=== PATIENT | female | born 1965 ===

== ENCOUNTER 2024-10-27 20:52 | Inpatient (IN) | payer OTHER, SELFPAY ==
[2024-10-27 20:00] VITALS: BP 137/70; PULSE 89; RESP 15; TEMP 36.3; O2SAT 92
[2024-10-27 23:54] VITALS: BMI 43.3
--- NOTE | 2024-10-28 01:02 | PC.ADMIT ---
Admitted these 59 yrs. old female patient per stretcher accompanied by ambulance staff and security strategist w/ signed Sec. 12-B from our ED. According to report pt was found naked by and was not answering questions but is following commands. stated pt's mental status began to decline about three weeks ago when she was diagnosed with a UTI. However, that infection has since cleared and her mentation has still not improved. Patient arrived in the unit at 21:10h Pt put to bed comfortably. Pt is alert and oriented to person, place and time but forgets the date. Pt is pleasant, calm and cooperative with the admission process. Pt signed the release of information. Pt has medical hx of asthma, CHF,diabetes, dementia,hypothyroidism, Anemia and hyperlipidemia. Pt. denies anxiety/depression/SI/HI/pain and feels safe in the unit. Skin assessment done w/ coccyx noted to be pink, no open areas, no edema noted. Pt has a small skin tag in the upper inner thigh.Pt. noted to be repititive and perseverative at times. Pt put on 5 mins. checks for safety. We'll continue to monitor patient. Dr. Sánchez notified of the admission w/ new orders made.
[2024-10-28] MEDS: traZODone HCL 50 MG TABLET PO ×2 (02:16→20:09)
[2024-10-28 08:00] VITALS: BP 147/74; PULSE 100; RESP 18; TEMP 36; O2SAT 96
--- NOTE | 2024-10-28 09:06 | P.HPPS_ITS ---
[facility] Date of Service: 10/28/24 Chief Complaint: Dementia W/Behavioral Disturbances Sources of Information: patient interviewed, chart reviewed and crisis/core team assessment reviewed Additional Sources of Information: Eliud () [phone] [facility] Subjective Notes: Colon Warning and Section 12B Narrative: Mrs. Duarte is a 59 year-old woman with hx of Bipolar Disorder, fronto- temporal dementia which was diagnosed back in 12/2023 at [facility] who was brought to [facility] ED as described pt sitting in chair, not talking, repeating words, purposeless behaviors such as walking to room staring and back and when asked about what she was doing would not respond. Pertinent labs completed in ED on 10/26/2024 include cmp without electrolyte abnormality, BUN 21, Cr 0.76, AST 16, ALT 31. UA on 10/26/2024 not suggestive of UTI, negative leukocyte, negative for nitrites. CBC without leukocytosis/leukopenia, no anemia. On the unit, pt presents with verbigeration, repeating last word of sentence she says several times. Her responses to simple questions questions are seemingly appropriate on surface in the sense that when you ask her if she is having pain she may say yes, yes, yes yes yes but when asked to elaborate then says no no no no no. She is able to tell that she is in the hospital. She reports she is not sure why she is here. She denies having a psychiatric providers, but Eliud reports she sees a psychiatrist. She also is not able to tell if she sees a neurologist or not. She denies suicidal or homicidal ideation. When asked about repetition of words, she does state that this started 3 weeks ago (which is consistent with what Eliud reports), when asked if it bothers her she says yes, yes, yes, yes, no, no, no, no. when asked if she has noticed other changes for the past 3 weeks she denies and reports she is okay. When asked if she is able to suppress repeating words several times, she says yes, yes, yes, yes, yes. Then this policy writer asked her to repeat a sentence without repeating any words several times. Sentence was I have a dog, pt kept repeating dog, dog, dog, dog. On exam, no waxy flexibility noted on exam. Per , Eliud- he reports they have been together only for 3 years. He reports that he suspected something was not right with her about one year ago or so. He reports he noticed behavioral changes in that patient began to present as more withdrawn, not talking as much, not talking, responses to questions related to what was going on had no much logic. He reports she initially was mistaken as depressed but finally when she was admitted to [facility] she was given dx of frontotemporal dx last year. He reports she was doing very well, able to cook at home, complete some chores, go out with him, but in the past 3 weeks, she started to again stare at the wall, purposeless behaviors of going to a room, coming back out, not taking care of hygiene but not expressing depressed mood or sadness. He stated she also started to refuse her medications, which he reports she is very consistent with them. He denies hx of violence or self harm behaviors as he is aware. His understanding is that this presentation it is not the common presentation she had earlier in her life due to Bipolar Disorder. Past Psychiatric History: Inpt: [facility] 12/2023 apparently presented as catatonic and dx with frontotemporal Dementia. OP: Karlene Demarco [phone] (psychiatric provider) Neurologist: Dr. Humberto Escamilla Past med trials: trileptal, seroquel, Medical Evaluation Reviewed: Yes TSH-2.32 [facility] Medical History (Updated 10/29/24 @ 09:40 by Nicole Salinas NP) Catatonia Bipolar disorder Mild intermittent asthma HLD (hyperlipidemia) Pulmonary embolism Acute CHF Frontotemporal dementia Family History: unknown Social History: with Eliud for the past 3 years. She has two adult children in their 30's. She worked as an [employer] but has been on disability for 10 years. Substance History: none Trauma History: none reported Diagnostics Vital Signs (24Hr): Vital Signs - 24 hr 10/27/24 20:00 Temperature 97.3 F Pulse Rate 89 Respiratory Rate 15 Blood Pressure 137/70 Pulse Oximetry 92 Oxygen Delivery Method Room Air BMI result Body Mass Index 43.3 Labs 10/28/24 08:44 Meds/Allergies Meds Home Medications ?Medication ?Instructions ?Recorded ?Confirmed ?Type apixaban 5 mg tablet (Eliquis) 5 mg PO BID 10/28/24 10/28/24 History atorvastatin 20 mg tablet 20 mg PO BEDTIME 10/28/24 10/28/24 History ergocalciferol (vitamin D2) 1,250 1,250 mcg PO QWEEK 10/28/24 10/28/24 History mcg (50,000 unit) capsule folic acid 1 mg tablet 5 mg PO DAILY 10/28/24 10/28/24 History lorazepam 0.5 mg tablet 0.5 mg PO BID 10/28/24 10/28/24 History memantine 5 mg tablet 5 mg PO BID 10/28/24 10/28/24 History methimazole 5 mg tablet 5 mg PO DAILY 10/28/24 10/28/24 History oxcarbazepine 600 mg tablet 600 mg PO BID 10/28/24 10/28/24 History pyridoxine (vitamin B6) 50 mg 50 mg PO DAILY 10/28/24 10/28/24 History tablet quetiapine 25 mg tablet 25 mg PO BID 10/28/24 10/28/24 History quetiapine 25 mg tablet 75 mg PO BEDTIME 10/28/24 10/28/24 History sennosides 8.6 mg tablet (senna) 17.2 mg PO BEDTIME PRN Constipation 10/28/24 10/28/24 History Allergies Allergies Allergy/AdvReac Type Severity Reaction Status Date / Time artichoke Allergy Swelling Verified 10/27/24 23:58 perphenazine [From Trilafon] Allergy Anaphylaxis Verified 10/27/24 23:55 tree nut Allergy Unknown Verified 10/27/24 23:58 walnut Allergy Unknown Verified 10/27/24 23:58 Mental Status Exam Mental Status Exam Narrative: Appearance: wearing casual clothing, appears stated age, in NAD Behavior:seemingly cooperative Psychomotor: no agitation or retardation noted Speech: verbigeration, clear, monotone, spontaneous TP: some derailment at times TC: Mood: good Affect: constricted affect, but congruent SI: denies HI: denies VH/AH: no overt signs Delusions: no overt delusional content Insight/judgment: impaired x 2. Memory/cog: alert, oriented to fact that she is in the hospital and month, not to situation. Assessment & Plan Assessment & Plan (1) Frontotemporal dementia with behavioral disturbance: Status: Acute Code(s): G31.09 - Other frontotemporal neurocognitive disorder; F02.818 - Dementia in other diseases classified elsewhere, unspecified severity, with other behavioral disturbance Assessment and Plan: with s/s of catatonia including verbigeration, negativism, staring, purposeless behaviors- did respond to trial of ativan, in particular the verbigeration and negativism (2) Bipolar disorder: Status: Acute Code(s): F31.9 - Bipolar disorder, unspecified Assessment and Plan: apparently without psychosis in the past. (3) Goiter with hyperthyroidism: Status: Acute Code(s): E05.00 - Thyrotoxicosis with diffuse goiter without thyrotoxic crisis or storm Assessment and Plan: TSH-2.32 On tapazole 5mg po daily (4) CHF (congestive heart failure): Status: Acute Code(s): I50.9 - Heart failure, unspecified (5) Asthma: Status: Acute Code(s): J45.909 - Unspecified asthma, uncomplicated Plan Mrs. Duarte is a 59 year-old woman with hx of frontotemporal dementia, Bipolar Disorder who was brought to [facility] ED due to presenting with s/s of catatonia including staring, verbigeration, negativism, purposeless behaviors which apparently is similar presentation as last year when she was diagnosed with Frontotemporal dementia. Frontotemporal Dementia does have higher risk of catatonia like symptoms and not uncommon presentation. On the unit, she received ativan 1mg with good effect improving s/s of verbigeration, catatonia. Will obtain records from [facility] and OP providers. Discussed with patient and patient's HCP Eliud, increasing ativan 1mg po TID. Will continue seroquel 50mg po qhs. PLAN 1. Admit to S1, currently on sect 12b but if s/s improve may be able to sign CV, 15 minutes checks 2. start ativan 1mg po TID 3. obtain records from [facility]/ OP providers psychiatrist and neurology. 4. aftercare planning. Patient educated on: diagnosis and medication risk/benefits Reason for continued inpatient stay Substantial Risk for: inability to function Statement Statement: I have reviewed the history and physical and performed a pertinent examination on my patient. No changes have occurred unless specified. If the History and Physical was not performed prior to admission, the Hospitalist's service will be consulted for completing the admission physical. Time Spent With Patient Time: Total time managing care of this patient today ____ minutes.
[2024-10-28 09:37] LABS: Cholesterol 176 mg/dL (<200); HDL Cholesterol 62 mg/dL (>40); LDL Cholesterol Calculated 67 mg/dL (<100); Triglycerides 238 mg/dL (<150)
[2024-10-28 09:51] LABS: Alanine Aminotransferase 29 U/L (0-31); Albumin Level 4.4 g/dL (3.5-5.0); Alkaline Phosphatase 76 U/L (39-117); Anion Gap 15 (12-20); Aspartate Amino Transferase 29 U/L (5-31); Bilirubin Total 0.7 mg/dL (0.0-1.0); Blood Urea Nitrogen 21 mg/dL (9-16); Calcium 9.8 mg/dL (8.4-10.2); Carbon Dioxide 22 mmol/L (22-29); Chloride 106 mmol/L (96-108); Creatinine Clr Calc Pharmacy 84.9; Estimated Glomerular Filt Rate > 60; Glucose Random 128 mg/dL (60-115); Potassium 3.9 mmol/L (3.3-5.1); Sodium 139 mmol/L (135-145); Total Protein 7.8 g/dL (6.5-8.0)
[2024-10-28 09:54] LABS: TSH reflex Free T4 2.32 uIU/mL (0.32-4.0)
--- NOTE | 2024-10-28 11:24 | P.CONHOSP_ITS ---
History of Present Illness Data of Consult Service Date: 10/28/24 Primary Care Provider: Unknown Physician HPI Reason for consult: Admission H&P Pt is a 59-year-old female with a PMH significant for?HLD, hx of PE on Eliquis, mild intermittent asthma, early-onset frontotemporal dementia (diagnosed 12/2023), bipolar disorder with psychotic features, and catatonia who is admitted to [facility] for change in mental status. Pt apparently was found by her has been sitting in her recliner naked and not answering questions but following commands. Pt initially presented to [facility] where workup included negative MRI and EEG. UA negative for UTI. Had similar presentations with similar negative workup in the past. Medical consult for admission H&P. ?Pt seen and evaluated in room where she is found to be sleeping comfortably in bed. When awoken. Pt repeatedly shakes her head and will not answer any questions, including even stating her name. Will follow some commands like raising her arms, but not other ones such as moving her lower extremities. Review of Systems 2 Review of Systems: Yes Unobtainable due to mental status [facility] Medical History (Updated 10/28/24 @ 13:38 by TRAVIS Escobar) Catatonia Bipolar disorder Mild intermittent asthma HLD (hyperlipidemia) Pulmonary embolism Acute CHF Frontotemporal dementia Social History Household Members: Spouse Housing: House Do you presently have visiting nurse or other home services: No Patient Tobacco Use Status: Never used Tobacco Smoked in Last 30 Days: No e-Cigarette/Vaping Use: Never Used Patient Interested in Nicotine Replacement: No (Pt said she does not smoke.) Patient Given Instructions on How to Stop Smoking: No (pt said she does not smoke.) Second Hand Smoke Exposure: No Use of substances other than those prescribed or required for medical reasons: No Currently Displaying Signs/Symptoms of Drug Intoxication Withdrawal: No Any prior treatment program specific to substance use: No Have you been hit, kicked, punched, or otherwise hurt by someone within the past year? If so, by whom?: No Do you feel safe in your current relationship?: Yes Is there a partner from a previous relationship who is making you feel unsafe now?: Yes ( I have a restraining order from my ex .) Are you made to feel afraid or neglected: No Bahai Healthcare Practices: 'I am a Confucianist. Advance Directives: No Advance Directives Information Provided: No Do you have thoughts of harming others: None Do you have a plan to hurt others: No Plan Recently lost weight without trying: No How much weight loss: Unsure Eating poorly because of decreased appetite: No Nutrition screen score: 2 Nutrition Risks: No Nutritional Risk Patient : No : No Poor oral hygiene: No Meds Allergies Allergy/AdvReac Type Severity Reaction Status Date / Time artichoke Allergy Swelling Verified 10/27/24 23:58 perphenazine [From Trilafon] Allergy Anaphylaxis Verified 10/27/24 23:55 tree nut Allergy Unknown Verified 10/27/24 23:58 walnut Allergy Unknown Verified 10/27/24 23:58 Active Medications: Current Medications Acetaminophen (Acetaminophen 325 Mg Tablet) 650 mg PO Q6H PRN PRN Reason: Headache/Pain, Scale 1-10 Al Hydroxide/Mg Hydroxide (Magnesium Hydrox/Alum Hydrox 30 Ml Oral.Susp) 30 ml PO Q6H PRN PRN Reason: Heartburn/Nausea Apixaban (Apixaban 5 Mg Tablet) 5 mg PO BID [facility] Atorvastatin Calcium (Atorvastatin Calcium 20 Mg Tablet) 20 mg PO BEDTIME [facility] Ergocalciferol (Ergocalciferol (Vitamin D2) 1,250 Mcg Capsule) 1,250 mcg PO Fr@0900 [facility] Folic Acid (Folic Acid 1 Mg Tablet) 5 mg PO DAILY [facility] Hydroxyzine HCl (Hydroxyzine Hcl 25 Mg Tablet) 25 mg PO Q6H PRN PRN Reason: mild anxiety Magnesium Hydroxide (Milk Of Magnesia 30 Ml Oral.Susp) 30 ml PO DAILY PRN PRN Reason: Constipation Memantine (Memantine Hcl 5 Mg Tablet) 5 mg PO BID [facility] Methimazole (Methimazole 5 Mg Tablet) 5 mg PO DAILY [facility] Nicotine Polacrilex (Nicotine Polacrilex 2 Mg Gum) 4 mg BUCCAL Q2H PRN PRN Reason: Nicotine Cravings Olanzapine (Olanzapine 2.5 Mg Tablet) 2.5 mg PO TID PRN PRN Reason: agitation Oxcarbazepine (Oxcarbazepine 300 Mg Tablet) 600 mg PO BID [facility] Pyridoxine HCl (Pyridoxine Hcl (Vitamin B6) 50 Mg Tablet) 50 mg PO DAILY [facility] Quetiapine Fumarate (Quetiapine Fumarate 25 Mg Tablet) 75 mg PO BEDTIME [facility] Quetiapine Fumarate (Quetiapine Fumarate 25 Mg Tablet) 25 mg PO BID [facility] Senna (Sennosides 8.6 Mg Tablet) 17.2 mg PO BEDTIME PRN PRN Reason: Constipation Trazodone HCl (Trazodone Hcl 50 Mg Tablet) 50 mg PO BEDTIME MRX1 PRN PRN Reason: Insomnia Last Admin: 10/28/24 02:16 Dose: 50 mg Home Medications ?Medication ?Instructions ?Recorded ?Confirmed ?Last Taken ?Type apixaban 5 mg tablet (Eliquis) 5 mg PO BID 10/28/24 10/28/24 Unknown History atorvastatin 20 mg tablet 20 mg PO BEDTIME 10/28/24 10/28/24 Unknown History ergocalciferol (vitamin D2) 1,250 1,250 mcg PO QWEEK 10/28/24 10/28/24 Unknown History mcg (50,000 unit) capsule folic acid 1 mg tablet 5 mg PO DAILY 10/28/24 10/28/24 Unknown History lorazepam 0.5 mg tablet 0.5 mg PO BID 10/28/24 10/28/24 Unknown History memantine 5 mg tablet 5 mg PO BID 10/28/24 10/28/24 Unknown History methimazole 5 mg tablet 5 mg PO DAILY 10/28/24 10/28/24 Unknown History oxcarbazepine 600 mg tablet 600 mg PO BID 10/28/24 10/28/24 Unknown History pyridoxine (vitamin B6) 50 mg 50 mg PO DAILY 10/28/24 10/28/24 Unknown History tablet quetiapine 25 mg tablet 25 mg PO BID 10/28/24 10/28/24 Unknown History quetiapine 25 mg tablet 75 mg PO BEDTIME 10/28/24 10/28/24 Unknown History sennosides 8.6 mg tablet (senna) 17.2 mg PO BEDTIME PRN Constipation 10/28/24 10/28/24 Unknown History Physical Exam 2 Vital Signs and Narrative: Vital Signs: Last Vital Signs Temp 96.8 F 10/28/24 08:00 Pulse 100 10/28/24 08:00 Resp 18 10/28/24 08:00 BP 147/74 H 10/28/24 08:00 Pulse Ox 96 10/28/24 08:00 O2 Del Method Room Air 10/28/24 08:00 BMI result Body Mass Index 43.3 General: Alert, semi catatonic, not answering questions but following some commands. In no acute distress Resp: CTA bilaterally CVS: S1, S2, RRR GI: +BS, NT, no distention Skin: Warm, dry Neuro: Cranial nerves II-XII grossly intact bilaterally. Motor grossly intact bilaterally Extremities: No edema Psych: Semi catatonic. Results Labs 10/28/24 08:44 Labs: Laboratory Results - last 24 hr 10/28/24 08:44 Anion Gap 15 Estim Creat Clear Calc 84.9 Estimated GFR > 60 Random Glucose 128 H Calcium 9.8 Total Bilirubin 0.7 AST 29 ALT 29 Alkaline Phosphatase 76 Total Protein 7.8 Albumin 4.4 Triglycerides 238 H Cholesterol 176 LDL Cholesterol, Calc 67 HDL Cholesterol 62 TSH 2.32 Assessment and Plan (1) Medical clearance for psychiatric admission: Status: Acute Plan Pt is a 59-year-old female with a PMH significant for?HLD, hx of PE on Eliquis, mild intermittent asthma, early-onset frontotemporal dementia (diagnosed 12/2023), bipolar disorder with psychotic features, and catatonia who is admitted to [facility] for change in mental status. Mood disorder Plan as per Psychiatry Hx of PE Continue Eliquis HLD Continue statin Early-onset dementia Continue memantine Plan as per Psychiatry Thank you for allowing us to participate in the care of this patient. Signing off at this time. Please re-consult if any acute complaints or issues arise.
[2024-10-28] MEDS: Pyridoxine HCl (Vitamin B6) 50 MG TABLET PO (13:16)
[2024-10-28] MEDS: Ergocalciferol (Vitamin D2) 1,250 MCG CAPSULE 1250 MCG PO (13:17)
[2024-10-28] MEDS: methIMAzole 5 MG TABLET PO (13:17)
[2024-10-28] MEDS: LORazepam 1 MG TABLET PO ×3 (13:36→20:09)
[2024-10-28] MEDS: Acetaminophen 325 MG TABLET 650 MG PO (13:48)
[2024-10-28] MEDS: hydrOXYzine HCL 25 MG TABLET PO (14:02)
[2024-10-28 19:49] VITALS: BP 132/71; PULSE 97; RESP 18; TEMP 36.4; O2SAT 95
[2024-10-28] MEDS: Memantine HCl 5 MG TABLET PO (20:09)
[2024-10-28] MEDS: Atorvastatin Calcium 20 MG TABLET PO (20:09)
[2024-10-28] MEDS: OXcarbazepine 300 MG TABLET 600 MG PO (20:09)
[2024-10-28] MEDS: QUEtiapine Fumarate 50 MG TABLET PO (20:10)
[2024-10-28] MEDS: Apixaban 5 MG TABLET PO (20:10)
[2024-10-29 08:30] VITALS: BP 122/69; PULSE 111; RESP 18; TEMP 36.9; O2SAT 95
[2024-10-29] MEDS: Memantine HCl 5 MG TABLET PO ×2 (08:47→20:11)
[2024-10-29] MEDS: OXcarbazepine 300 MG TABLET 600 MG PO ×2 (08:47→20:10)
[2024-10-29] MEDS: methIMAzole 5 MG TABLET PO (08:48)
[2024-10-29] MEDS: Folic Acid 1 MG TABLET 5 MG PO (08:48)
[2024-10-29] MEDS: Apixaban 5 MG TABLET PO ×2 (08:49→20:10)
[2024-10-29] MEDS: Pyridoxine HCl (Vitamin B6) 50 MG TABLET PO (08:49)
[2024-10-29] MEDS: LORazepam 1 MG TABLET PO ×3 (08:49→20:10)
[2024-10-29 09:22] LABS: Estimated Average Glucose 111 mg/dL; Hemoglobin A1c % 5.5 % (<6.0); Total Hemoglobin (HGBA1C) 3400.0089 umol/L
--- NOTE | 2024-10-29 18:17 | HO.PSYCHPN ---
Subjective Subjective Date of Service: 10/29/24 Reason For Visit: Dementia W/Behavioral Disturbances Subjective Notes: Section 12B Interim History: verbigeration gradually becoming apparently as pt awaits morning medications. She did take medications. She later in the day presented with less verbigeration. Somewhat expansive mood stating I'm great! Visible on the unit, social with select peers. Review of Systems Review of Systems Yes Unobtainable due to mental status Mental Status Exam Mental Status Exam Narrative: Appearance: wearing casual clothing, appears stated age, in NAD Behavior:seemingly cooperative Psychomotor: no agitation or retardation noted Speech: verbigeration, clear, monotone, spontaneous TP: some derailment at times TC: Mood: good Affect: constricted affect, but congruent SI: denies HI: denies VH/AH: no overt signs Delusions: no overt delusional content Insight/judgment: impaired x 2. Memory/cog: alert, oriented to fact that she is in the hospital and month, not to situation. Diagnostics Vital Signs (24Hr): Vital Signs - 24 hr 10/28/24 19:49 10/29/24 08:30 Temperature 97.6 F 98.5 F Pulse Rate 97 111 H Respiratory Rate 18 18 Blood Pressure 132/71 122/69 Pulse Oximetry 95 95 Oxygen Delivery Method Room Air BMI result Body Mass Index 43.3 Labs 10/28/24 08:44 Labs: Laboratory Results - last 48 hr 10/28/24 10/29/24 08:44 08:43 Sodium 139 Potassium 3.9 Chloride 106 Carbon Dioxide 22 Anion Gap 15 BUN 21 H Creatinine 0.81 Estim Creat Clear Calc 84.9 Estimated GFR > 60 Random Glucose 128 H Estimat Average Glucose 111 Hemoglobin A1c % 5.5 Calcium 9.8 Total Bilirubin 0.7 AST 29 ALT 29 Alkaline Phosphatase 76 Total Protein 7.8 Albumin 4.4 Triglycerides 238 H Cholesterol 176 LDL Cholesterol, Calc 67 HDL Cholesterol 62 TSH 2.32 Medications Medications Current Medications Acetaminophen (Acetaminophen 325 Mg Tablet) 650 mg PO Q6H PRN PRN Reason: Headache/Pain, Scale 1-10 Last Admin: 10/28/24 13:48 Dose: 650 mg Al Hydroxide/Mg Hydroxide (Magnesium Hydrox/Alum Hydrox 30 Ml Oral.Susp) 30 ml PO Q6H PRN PRN Reason: Heartburn/Nausea Apixaban (Apixaban 5 Mg Tablet) 5 mg PO BID [facility] Last Admin: 10/29/24 08:49 Dose: 5 mg Atorvastatin Calcium (Atorvastatin Calcium 20 Mg Tablet) 20 mg PO BEDTIME [facility] Last Admin: 10/28/24 20:09 Dose: 20 mg Ergocalciferol (Ergocalciferol (Vitamin D2) 1,250 Mcg Capsule) 1,250 mcg PO Fr@0900 [facility] Last Admin: 10/28/24 13:17 Dose: 1,250 mcg Folic Acid (Folic Acid 1 Mg Tablet) 5 mg PO DAILY [facility] Last Admin: 10/29/24 08:48 Dose: 5 mg Hydroxyzine HCl (Hydroxyzine Hcl 25 Mg Tablet) 25 mg PO Q6H PRN PRN Reason: mild anxiety Last Admin: 10/28/24 14:02 Dose: 25 mg Lorazepam (Lorazepam 1 Mg Tablet) 1 mg PO TID [facility] Last Admin: 10/29/24 14:57 Dose: 1 mg Magnesium Hydroxide (Milk Of Magnesia 30 Ml Oral.Susp) 30 ml PO DAILY PRN PRN Reason: Constipation Memantine (Memantine Hcl 5 Mg Tablet) 5 mg PO BID [facility] Last Admin: 10/29/24 08:47 Dose: 5 mg Methimazole (Methimazole 5 Mg Tablet) 5 mg PO DAILY [facility] Last Admin: 10/29/24 08:48 Dose: 5 mg Nicotine Polacrilex (Nicotine Polacrilex 2 Mg Gum) 4 mg BUCCAL Q2H PRN PRN Reason: Nicotine Cravings Olanzapine (Olanzapine 2.5 Mg Tablet) 2.5 mg PO TID PRN PRN Reason: agitation Oxcarbazepine (Oxcarbazepine 300 Mg Tablet) 600 mg PO BID [facility] Last Admin: 10/29/24 08:47 Dose: 600 mg Pyridoxine HCl (Pyridoxine Hcl (Vitamin B6) 50 Mg Tablet) 50 mg PO DAILY [facility] Last Admin: 10/29/24 08:49 Dose: 50 mg Quetiapine Fumarate (Quetiapine Fumarate 50 Mg Tablet) 50 mg PO BEDTIME [facility] Last Admin: 10/28/24 20:10 Dose: 50 mg Senna (Sennosides 8.6 Mg Tablet) 17.2 mg PO BEDTIME PRN PRN Reason: Constipation Trazodone HCl (Trazodone Hcl 50 Mg Tablet) 50 mg PO BEDTIME MRX1 PRN PRN Reason: Insomnia Last Admin: 10/28/24 20:09 Dose: 50 mg Allergies Allergies Allergy/AdvReac Type Severity Reaction Status Date / Time artichoke Allergy Swelling Verified 10/27/24 23:58 perphenazine [From Trilafon] Allergy Anaphylaxis Verified 10/27/24 23:55 tree nut Allergy Unknown Verified 10/27/24 23:58 walnut Allergy Unknown Verified 10/27/24 23:58 Assessment & Plan Assessment & Plan (1) Frontotemporal dementia with behavioral disturbance: Status: Acute Code(s): G31.09 - Other frontotemporal neurocognitive disorder; F02.818 - Dementia in other diseases classified elsewhere, unspecified severity, with other behavioral disturbance (2) Bipolar disorder: Status: Acute Code(s): F31.9 - Bipolar disorder, unspecified (3) Goiter with hyperthyroidism: Status: Acute Code(s): E05.00 - Thyrotoxicosis with diffuse goiter without thyrotoxic crisis or storm Assessment and Plan: TSH-2.32 On tapazole 5mg po daily (4) CHF (congestive heart failure): Status: Acute Code(s): I50.9 - Heart failure, unspecified (5) Asthma: Status: Acute Code(s): J45.909 - Unspecified asthma, uncomplicated Plan Mrs. Duarte is a 59 year-old woman with hx of frontotemporal dementia, Bipolar Disorder who was brought to [facility] ED due to presenting with s/s of catatonia including staring, verbigeration, negativism, purposeless behaviors which apparently is similar presentation as last year when she was diagnosed with Frontotemporal dementia. Frontotemporal Dementia does have higher risk of catatonia like symptoms and not uncommon presentation. On the unit, she received ativan 1mg with good effect improving s/s of verbigeration, catatonia. Will obtain records from [facility] and OP providers. Discussed with patient and patient's HCP Eliud, increasing ativan 1mg po TID. Will continue seroquel 50mg po qhs. PLAN 10/29 continue ativan 1mg po TID, currently on seroquel, somewhat expansive mood,visible taking medications. Reason for continued inpatient stay Substantial Risk for: inability to function Time Spent With Patient Time: Total time managing care of this patient today ____ minutes.
[2024-10-29 20:00] VITALS: BP 120/76; PULSE 103; TEMP 36.7; O2SAT 94
[2024-10-29] MEDS: traZODone HCL 50 MG TABLET PO (20:10)
[2024-10-29] MEDS: QUEtiapine Fumarate 50 MG TABLET PO (20:10)
[2024-10-29] MEDS: Atorvastatin Calcium 20 MG TABLET PO (20:10)
[2024-10-30 08:43] VITALS: BP 121/67; PULSE 102; RESP 18; TEMP 36.4; O2SAT 97
[2024-10-30] MEDS: Folic Acid 1 MG TABLET 5 MG PO (08:45)
[2024-10-30] MEDS: Memantine HCl 5 MG TABLET PO ×2 (08:45→20:08)
[2024-10-30] MEDS: Pyridoxine HCl (Vitamin B6) 50 MG TABLET PO (08:45)
[2024-10-30] MEDS: Apixaban 5 MG TABLET PO ×2 (08:45→20:08)
[2024-10-30] MEDS: LORazepam 1 MG TABLET PO ×2 (08:45→14:18)
[2024-10-30] MEDS: OXcarbazepine 300 MG TABLET 600 MG PO ×2 (08:45→20:08)
[2024-10-30] MEDS: methIMAzole 5 MG TABLET PO (08:46)
--- NOTE | 2024-10-30 12:16 | HO.PSYCHPN ---
Subjective Subjective Date of Service: 10/30/24 Reason For Visit: Dementia W/Behavioral Disturbances Subjective Notes: Conditional Voluntary Interim History: She continues to present with verbigeration. reports she is having fun, fun, fun, fun. When asked about what she did that was fun, she states fun, fun, fun. Somewhat expansive mood stating I'm great! Visible on the unit, social with select peers. Review of Systems Review of Systems Yes Unobtainable due to mental status Diagnostics Vital Signs (24Hr): Vital Signs - 24 hr 10/29/24 20:00 10/30/24 08:43 Temperature 98.1 F 97.5 F Pulse Rate 103 H 102 H Respiratory Rate 18 Blood Pressure 120/76 121/67 Pulse Oximetry 94 97 Oxygen Delivery Method Room Air Room Air BMI result Body Mass Index 43.3 Labs 10/28/24 08:44 Labs: Laboratory Results - last 48 hr 10/29/24 08:43 Estimat Average Glucose 111 Hemoglobin A1c % 5.5 Medications Medications Current Medications Acetaminophen (Acetaminophen 325 Mg Tablet) 650 mg PO Q6H PRN PRN Reason: Headache/Pain, Scale 1-10 Last Admin: 10/28/24 13:48 Dose: 650 mg Al Hydroxide/Mg Hydroxide (Magnesium Hydrox/Alum Hydrox 30 Ml Oral.Susp) 30 ml PO Q6H PRN PRN Reason: Heartburn/Nausea Apixaban (Apixaban 5 Mg Tablet) 5 mg PO BID [facility] Last Admin: 10/30/24 08:45 Dose: 5 mg Atorvastatin Calcium (Atorvastatin Calcium 20 Mg Tablet) 20 mg PO BEDTIME [facility] Last Admin: 10/29/24 20:10 Dose: 20 mg Ergocalciferol (Ergocalciferol (Vitamin D2) 1,250 Mcg Capsule) 1,250 mcg PO Fr@0900 [facility] Last Admin: 10/28/24 13:17 Dose: 1,250 mcg Folic Acid (Folic Acid 1 Mg Tablet) 5 mg PO DAILY [facility] Last Admin: 10/30/24 08:45 Dose: 5 mg Hydroxyzine HCl (Hydroxyzine Hcl 25 Mg Tablet) 25 mg PO Q6H PRN PRN Reason: mild anxiety Last Admin: 10/28/24 14:02 Dose: 25 mg Lorazepam (Lorazepam 1 Mg Tablet) 1 mg PO TID [facility] Last Admin: 10/30/24 08:45 Dose: 1 mg Magnesium Hydroxide (Milk Of Magnesia 30 Ml Oral.Susp) 30 ml PO DAILY PRN PRN Reason: Constipation Memantine (Memantine Hcl 5 Mg Tablet) 5 mg PO BID [facility] Last Admin: 10/30/24 08:45 Dose: 5 mg Methimazole (Methimazole 5 Mg Tablet) 5 mg PO DAILY [facility] Last Admin: 10/30/24 08:46 Dose: 5 mg Nicotine Polacrilex (Nicotine Polacrilex 2 Mg Gum) 4 mg BUCCAL Q2H PRN PRN Reason: Nicotine Cravings Olanzapine (Olanzapine 2.5 Mg Tablet) 2.5 mg PO TID PRN PRN Reason: agitation Oxcarbazepine (Oxcarbazepine 300 Mg Tablet) 600 mg PO BID [facility] Last Admin: 10/30/24 08:45 Dose: 600 mg Pyridoxine HCl (Pyridoxine Hcl (Vitamin B6) 50 Mg Tablet) 50 mg PO DAILY [facility] Last Admin: 10/30/24 08:45 Dose: 50 mg Quetiapine Fumarate (Quetiapine Fumarate 50 Mg Tablet) 50 mg PO BEDTIME [facility] Last Admin: 10/29/24 20:10 Dose: 50 mg Senna (Sennosides 8.6 Mg Tablet) 17.2 mg PO BEDTIME PRN PRN Reason: Constipation Trazodone HCl (Trazodone Hcl 50 Mg Tablet) 50 mg PO BEDTIME MRX1 PRN PRN Reason: Insomnia Last Admin: 10/29/24 20:10 Dose: 50 mg Allergies Allergies Allergy/AdvReac Type Severity Reaction Status Date / Time artichoke Allergy Swelling Verified 10/27/24 23:58 perphenazine [From Trilafon] Allergy Anaphylaxis Verified 10/27/24 23:55 tree nut Allergy Unknown Verified 10/27/24 23:58 walnut Allergy Unknown Verified 10/27/24 23:58 Assessment & Plan Assessment & Plan (1) Frontotemporal dementia with behavioral disturbance: Status: Acute Code(s): G31.09 - Other frontotemporal neurocognitive disorder; F02.818 - Dementia in other diseases classified elsewhere, unspecified severity, with other behavioral disturbance (2) Bipolar disorder: Status: Acute Code(s): F31.9 - Bipolar disorder, unspecified (3) Goiter with hyperthyroidism: Status: Acute Code(s): E05.00 - Thyrotoxicosis with diffuse goiter without thyrotoxic crisis or storm Assessment and Plan: TSH-2.32 On tapazole 5mg po daily (4) CHF (congestive heart failure): Status: Acute Code(s): I50.9 - Heart failure, unspecified (5) Asthma: Status: Acute Code(s): J45.909 - Unspecified asthma, uncomplicated Plan Mrs. Duarte is a 59 year-old woman with hx of frontotemporal dementia, Bipolar Disorder who was brought to [facility] ED due to presenting with s/s of catatonia including staring, verbigeration, negativism, purposeless behaviors which apparently is similar presentation as last year when she was diagnosed with Frontotemporal dementia. Frontotemporal Dementia does have higher risk of catatonia like symptoms and not uncommon presentation. On the unit, she received ativan 1mg with good effect improving s/s of verbigeration, catatonia. Will obtain records from [facility] and OP providers. Discussed with patient and patient's HCP Eliud, increasing ativan 1mg po TID. Will continue seroquel 50mg po qhs. PLAN 10/29 continue ativan 1mg po TID, currently on seroquel, somewhat expansive mood,visible taking medications. 10/30 continues on and off with verbigeration, along with confusion or disorganized thinking/logic when this happens. will lower ativan 0.5mg po TID- will request records tomorrow from [facility]. Reason for continued inpatient stay Substantial Risk for: inability to function Time Spent With Patient Time: Total time managing care of this patient today ____ minutes.
[2024-10-30 20:00] VITALS: BP 117/58; PULSE 98; RESP 18; TEMP 36.5; O2SAT 94
[2024-10-30] MEDS: LORazepam 0.5 MG TABLET PO (20:08)
[2024-10-30] MEDS: traZODone HCL 50 MG TABLET PO (20:08)
[2024-10-30] MEDS: Atorvastatin Calcium 20 MG TABLET PO (20:08)
[2024-10-30] MEDS: QUEtiapine Fumarate 50 MG TABLET PO (20:08)
[2024-10-31 08:28] VITALS: BP 130/67; PULSE 102; RESP 16; TEMP 36.8; O2SAT 96
[2024-10-31] MEDS: Pyridoxine HCl (Vitamin B6) 50 MG TABLET PO (08:29)
[2024-10-31] MEDS: methIMAzole 5 MG TABLET PO (08:29)
[2024-10-31] MEDS: Apixaban 5 MG TABLET PO ×2 (08:29→20:38)
[2024-10-31] MEDS: LORazepam 0.5 MG TABLET PO ×3 (08:29→20:38)
[2024-10-31] MEDS: Memantine HCl 5 MG TABLET PO ×2 (08:29→20:38)
[2024-10-31] MEDS: Folic Acid 1 MG TABLET 5 MG PO (08:29)
--- NOTE | 2024-10-31 10:11 | P.PNPSI_ITS ---
Subjective Subjective Date of Service: 10/31/24 Reason For Visit: Dementia W/Behavioral Disturbances Subjective Notes: Conditional Voluntary Interim History: She is taking medications as prescribed. She is visible on the unit. She continues to present with verbigeration. Some more organization in her thinking, able to tell she is in the hospital on psychiatric unit, signed CV. She also signed LI for [facility] when she was dx with fronto temporal Medication Compliance: Yes Review of Systems Review of Systems Yes Unobtainable due to mental status Mental Status Exam Mental Status Exam Narrative: Appearance: wearing casual clothing, appears stated age, in NAD Behavior:seemingly cooperative Psychomotor: no agitation or retardation noted Speech: verbigeration, clear, monotone, spontaneous TP: some derailment at times TC: Mood: good Affect: constricted affect, but congruent SI: denies HI: denies VH/AH: no overt signs Delusions: no overt delusional content Insight/judgment: impaired x 2. Memory/cog: alert, oriented to fact that she is in the hospital and month, not to situation. Diagnostics Vital Signs (24Hr): Vital Signs - 24 hr 10/30/24 20:00 10/31/24 08:28 Temperature 97.7 F 98.2 F Pulse Rate 98 102 H Respiratory Rate 18 16 Blood Pressure 117/58 L 130/67 Pulse Oximetry 94 96 Oxygen Delivery Method Room Air Room Air BMI result Body Mass Index 43.3 Labs 10/28/24 08:44 Labs: Laboratory Results - last 48 hr 10/29/24 08:43 Estimat Average Glucose 111 Hemoglobin A1c % 5.5 Medications Medications Current Medications Acetaminophen (Acetaminophen 325 Mg Tablet) 650 mg PO Q6H PRN PRN Reason: Headache/Pain, Scale 1-10 Last Admin: 10/28/24 13:48 Dose: 650 mg Al Hydroxide/Mg Hydroxide (Magnesium Hydrox/Alum Hydrox 30 Ml Oral.Susp) 30 ml PO Q6H PRN PRN Reason: Heartburn/Nausea Apixaban (Apixaban 5 Mg Tablet) 5 mg PO BID [facility] Last Admin: 10/31/24 08:29 Dose: 5 mg Atorvastatin Calcium (Atorvastatin Calcium 20 Mg Tablet) 20 mg PO BEDTIME [facility] Last Admin: 10/30/24 20:08 Dose: 20 mg Ergocalciferol (Ergocalciferol (Vitamin D2) 1,250 Mcg Capsule) 1,250 mcg PO Fr@0900 [facility] Last Admin: 10/28/24 13:17 Dose: 1,250 mcg Folic Acid (Folic Acid 1 Mg Tablet) 5 mg PO DAILY [facility] Last Admin: 10/31/24 08:29 Dose: 5 mg Hydroxyzine HCl (Hydroxyzine Hcl 25 Mg Tablet) 25 mg PO Q6H PRN PRN Reason: mild anxiety Last Admin: 10/28/24 14:02 Dose: 25 mg Lorazepam (Lorazepam 0.5 Mg Tablet) 0.5 mg PO TID [facility] Last Admin: 10/31/24 08:29 Dose: 0.5 mg Magnesium Hydroxide (Milk Of Magnesia 30 Ml Oral.Susp) 30 ml PO DAILY PRN PRN Reason: Constipation Memantine (Memantine Hcl 5 Mg Tablet) 5 mg PO BID [facility] Last Admin: 10/31/24 08:29 Dose: 5 mg Methimazole (Methimazole 5 Mg Tablet) 5 mg PO DAILY [facility] Last Admin: 10/31/24 08:29 Dose: 5 mg Nicotine Polacrilex (Nicotine Polacrilex 2 Mg Gum) 4 mg BUCCAL Q2H PRN PRN Reason: Nicotine Cravings Olanzapine (Olanzapine 2.5 Mg Tablet) 2.5 mg PO TID PRN PRN Reason: agitation Oxcarbazepine (Oxcarbazepine 300 Mg Tablet) 600 mg PO BID [facility] Last Admin: 10/30/24 20:08 Dose: 600 mg Pyridoxine HCl (Pyridoxine Hcl (Vitamin B6) 50 Mg Tablet) 50 mg PO DAILY [facility] Last Admin: 10/31/24 08:29 Dose: 50 mg Quetiapine Fumarate (Quetiapine Fumarate 50 Mg Tablet) 50 mg PO BEDTIME [facility] Last Admin: 10/30/24 20:08 Dose: 50 mg Senna (Sennosides 8.6 Mg Tablet) 17.2 mg PO BEDTIME PRN PRN Reason: Constipation Trazodone HCl (Trazodone Hcl 50 Mg Tablet) 50 mg PO BEDTIME MRX1 PRN PRN Reason: Insomnia Last Admin: 10/30/24 20:08 Dose: 50 mg Allergies Allergies Allergy/AdvReac Type Severity Reaction Status Date / Time artichoke Allergy Swelling Verified 10/27/24 23:58 perphenazine [From Trilafon] Allergy Anaphylaxis Verified 10/27/24 23:55 tree nut Allergy Unknown Verified 10/27/24 23:58 walnut Allergy Unknown Verified 10/27/24 23:58 Assessment & Plan Assessment & Plan (1) Frontotemporal dementia with behavioral disturbance: Status: Acute Code(s): G31.09 - Other frontotemporal neurocognitive disorder; F02.818 - Dementia in other diseases classified elsewhere, unspecified severity, with other behavioral disturbance (2) Bipolar disorder: Status: Acute Code(s): F31.9 - Bipolar disorder, unspecified (3) Goiter with hyperthyroidism: Status: Acute Code(s): E05.00 - Thyrotoxicosis with diffuse goiter without thyrotoxic crisis or storm Assessment and Plan: TSH-2.32 On tapazole 5mg po daily (4) CHF (congestive heart failure): Status: Acute Code(s): I50.9 - Heart failure, unspecified (5) Asthma: Status: Acute Code(s): J45.909 - Unspecified asthma, uncomplicated Plan Mrs. Duarte is a 59 year-old woman with hx of frontotemporal dementia, Bipolar Disorder who was brought to [facility] ED due to presenting with s/s of catatonia including staring, verbigeration, negativism, purposeless behaviors which apparently is similar presentation as last year when she was diagnosed with Frontotemporal dementia. Frontotemporal Dementia does have higher risk of catatonia like symptoms and not uncommon presentation. On the unit, she received ativan 1mg with good effect improving s/s of verbigeration, catatonia. Will obtain records from [facility] and OP providers. Discussed with patient and patient's HCP Eliud, increasing ativan 1mg po TID. Will continue seroquel 50mg po qhs. PLAN 10/29 continue ativan 1mg po TID, currently on seroquel, somewhat expansive mood,visible taking medications. 10/30 continues on and off with verbigeration, along with confusion or disorganized thinking/logic when this happens. will lower ativan 0.5mg po TID- will request records tomorrow from [facility]. 10/31 continue tx. Left VM to her psychiatric provider. Reason for continued inpatient stay Substantial Risk for: inability to function Time Spent With Patient Time: Total time managing care of this patient today ____ minutes.
[2024-10-31] MEDS: OXcarbazepine 300 MG TABLET 600 MG PO ×2 (11:48→20:38)
[2024-10-31 20:00] VITALS: BP 126/72; PULSE 95; RESP 18; TEMP 36.2; O2SAT 95
[2024-10-31] MEDS: QUEtiapine Fumarate 50 MG TABLET PO (20:38)
[2024-10-31] MEDS: Atorvastatin Calcium 20 MG TABLET PO (20:38)
[2024-10-31] MEDS: traZODone HCL 50 MG TABLET PO (20:38)
[2024-11-01 08:00] VITALS: BP 130/76; PULSE 92; RESP 18; TEMP 36.2; O2SAT 96
[2024-11-01] MEDS: methIMAzole 5 MG TABLET PO (09:00)
[2024-11-01] MEDS: LORazepam 0.5 MG TABLET PO ×3 (09:00→20:12)
[2024-11-01] MEDS: OXcarbazepine 300 MG TABLET 600 MG PO ×2 (09:00→20:12)
[2024-11-01] MEDS: Pyridoxine HCl (Vitamin B6) 50 MG TABLET PO (09:00)
[2024-11-01] MEDS: Memantine HCl 5 MG TABLET PO ×2 (09:00→20:12)
[2024-11-01] MEDS: Apixaban 5 MG TABLET PO ×2 (09:00→20:13)
[2024-11-01] MEDS: Folic Acid 1 MG TABLET 5 MG PO (09:01)
--- NOTE | 2024-11-01 12:33 | P.PNPSI_ITS ---
Subjective Subjective Date of Service: 11/01/24 Reason For Visit: Dementia W/Behavioral Disturbances Subjective Notes: Conditional Voluntary Interim History: Pt slept through the night. Blank stare, responses brief with no much detail or depth. She reports she is having fun, fun. She is able to say that she is enjoying groups and activities done during team. She denies SI/HI. She denies any concerns. Review of Systems Review of Systems Yes Unobtainable due to mental status Mental Status Exam Mental Status Exam Narrative: Appearance: wearing casual clothing, appears stated age, in NAD Behavior:seemingly cooperative Psychomotor: no agitation or retardation noted Speech: verbigeration, clear, monotone, spontaneous TP: some derailment at times TC: Mood: good Affect: constricted affect, but congruent SI: denies HI: denies VH/AH: no overt signs Delusions: no overt delusional content Insight/judgment: impaired x 2. Memory/cog: alert, oriented to fact that she is in the hospital and month, not to situation. Diagnostics Vital Signs (24Hr): Vital Signs - 24 hr 10/31/24 20:00 11/01/24 08:00 Temperature 97.2 F 97.1 F Pulse Rate 95 92 Respiratory Rate 18 18 Blood Pressure 126/72 130/76 Pulse Oximetry 95 96 Oxygen Delivery Method Room Air Room Air BMI result Body Mass Index 43.3 Labs 10/28/24 08:44 Medications Medications Current Medications Acetaminophen (Acetaminophen 325 Mg Tablet) 650 mg PO Q6H PRN PRN Reason: Headache/Pain, Scale 1-10 Last Admin: 10/28/24 13:48 Dose: 650 mg Al Hydroxide/Mg Hydroxide (Magnesium Hydrox/Alum Hydrox 30 Ml Oral.Susp) 30 ml PO Q6H PRN PRN Reason: Heartburn/Nausea Apixaban (Apixaban 5 Mg Tablet) 5 mg PO BID [facility] Last Admin: 11/01/24 09:00 Dose: 5 mg Atorvastatin Calcium (Atorvastatin Calcium 20 Mg Tablet) 20 mg PO BEDTIME [facility] Last Admin: 10/31/24 20:38 Dose: 20 mg Ergocalciferol (Ergocalciferol (Vitamin D2) 1,250 Mcg Capsule) 1,250 mcg PO Fr@0900 [facility] Last Admin: 10/28/24 13:17 Dose: 1,250 mcg Folic Acid (Folic Acid 1 Mg Tablet) 5 mg PO DAILY [facility] Last Admin: 11/01/24 09:01 Dose: 5 mg Hydroxyzine HCl (Hydroxyzine Hcl 25 Mg Tablet) 25 mg PO Q6H PRN PRN Reason: mild anxiety Last Admin: 10/28/24 14:02 Dose: 25 mg Lorazepam (Lorazepam 0.5 Mg Tablet) 0.5 mg PO TID [facility] Last Admin: 11/01/24 09:00 Dose: 0.5 mg Magnesium Hydroxide (Milk Of Magnesia 30 Ml Oral.Susp) 30 ml PO DAILY PRN PRN Reason: Constipation Memantine (Memantine Hcl 5 Mg Tablet) 5 mg PO BID [facility] Last Admin: 11/01/24 09:00 Dose: 5 mg Methimazole (Methimazole 5 Mg Tablet) 5 mg PO DAILY [facility] Last Admin: 11/01/24 09:00 Dose: 5 mg Nicotine Polacrilex (Nicotine Polacrilex 2 Mg Gum) 4 mg BUCCAL Q2H PRN PRN Reason: Nicotine Cravings Olanzapine (Olanzapine 2.5 Mg Tablet) 2.5 mg PO TID PRN PRN Reason: agitation Oxcarbazepine (Oxcarbazepine 300 Mg Tablet) 600 mg PO BID [facility] Last Admin: 11/01/24 09:00 Dose: 600 mg Pyridoxine HCl (Pyridoxine Hcl (Vitamin B6) 50 Mg Tablet) 50 mg PO DAILY [facility] Last Admin: 11/01/24 09:00 Dose: 50 mg Quetiapine Fumarate (Quetiapine Fumarate 50 Mg Tablet) 50 mg PO BEDTIME [facility] Last Admin: 10/31/24 20:38 Dose: 50 mg Senna (Sennosides 8.6 Mg Tablet) 17.2 mg PO BEDTIME PRN PRN Reason: Constipation Trazodone HCl (Trazodone Hcl 50 Mg Tablet) 50 mg PO BEDTIME MRX1 PRN PRN Reason: Insomnia Last Admin: 10/31/24 20:38 Dose: 50 mg Allergies Allergies Allergy/AdvReac Type Severity Reaction Status Date / Time artichoke Allergy Swelling Verified 10/27/24 23:58 perphenazine [From Trilafon] Allergy Anaphylaxis Verified 10/27/24 23:55 tree nut Allergy Unknown Verified 10/27/24 23:58 walnut Allergy Unknown Verified 10/27/24 23:58 Assessment & Plan Assessment & Plan (1) Frontotemporal dementia with behavioral disturbance: Status: Acute Code(s): G31.09 - Other frontotemporal neurocognitive disorder; F02.818 - Dementia in other diseases classified elsewhere, unspecified severity, with other behavioral disturbance (2) Bipolar disorder: Status: Acute Code(s): F31.9 - Bipolar disorder, unspecified (3) Goiter with hyperthyroidism: Status: Acute Code(s): E05.00 - Thyrotoxicosis with diffuse goiter without thyrotoxic crisis or storm Assessment and Plan: TSH-2.32 On tapazole 5mg po daily (4) CHF (congestive heart failure): Status: Acute Code(s): I50.9 - Heart failure, unspecified (5) Asthma: Status: Acute Code(s): J45.909 - Unspecified asthma, uncomplicated Plan Mrs. Duarte is a 59 year-old woman with hx of frontotemporal dementia, Bipolar Disorder who was brought to [facility] ED due to presenting with s/s of catatonia including staring, verbigeration, negativism, purposeless behaviors which apparently is similar presentation as last year when she was diagnosed with Frontotemporal dementia. Frontotemporal Dementia does have higher risk of catatonia like symptoms and not uncommon presentation. On the unit, she received ativan 1mg with good effect improving s/s of verbigeration, catatonia. Will obtain records from [facility] and OP providers. Discussed with patient and patient's HCP Eliud, increasing ativan 1mg po TID. Will continue seroquel 50mg po qhs. PLAN 10/29 continue ativan 1mg po TID, currently on seroquel, somewhat expansive mood,visible taking medications. 10/30 continues on and off with verbigeration, along with confusion or disorganized thinking/logic when this happens. will lower ativan 0.5mg po TID- will request records tomorrow from [facility]. 10/31 continue tx. Left VM to her psychiatric provider. 11/01 continue tx. pending records from [facility] Reason for continued inpatient stay Substantial Risk for: inability to function Time Spent With Patient Time: Total time managing care of this patient today ____ minutes.
[2024-11-01 20:00] VITALS: BP 131/71; PULSE 86; RESP 15; TEMP 36.9; O2SAT 96
[2024-11-01] MEDS: QUEtiapine Fumarate 50 MG TABLET PO (20:12)
[2024-11-01] MEDS: Atorvastatin Calcium 20 MG TABLET PO (20:12)
[2024-11-02 08:11] VITALS: BP 120/69; PULSE 91; RESP 15; TEMP 36.8; O2SAT 94
[2024-11-02] MEDS: LORazepam 0.5 MG TABLET PO ×3 (08:13→21:30)
[2024-11-02] MEDS: Pyridoxine HCl (Vitamin B6) 50 MG TABLET PO (08:13)
[2024-11-02] MEDS: Memantine HCl 5 MG TABLET PO ×2 (08:13→21:31)
[2024-11-02] MEDS: OXcarbazepine 300 MG TABLET 600 MG PO ×2 (08:13→21:31)
[2024-11-02] MEDS: Folic Acid 1 MG TABLET 5 MG PO (08:13)
[2024-11-02] MEDS: methIMAzole 5 MG TABLET PO (08:13)
[2024-11-02] MEDS: Apixaban 5 MG TABLET PO ×2 (08:13→21:31)
--- NOTE | 2024-11-02 16:40 | P.PNPSI_ITS ---
Subjective Subjective Date of Service: 11/02/24 Reason For Visit: Dementia W/Behavioral Disturbances Interim History: Pt slept through the night. Blank stare, responses brief with no much detail or depth. She reports she is having fun, fun. She is able to say that she is enjoying groups and activities done during team. She denies SI/HI. She denies any concerns. Review of Systems Review of Systems Yes Unobtainable due to mental status Mental Status Exam Mental Status Exam Narrative: Appearance: wearing casual clothing, appears stated age, in NAD Behavior:seemingly cooperative Psychomotor: no agitation or retardation noted Speech: verbigeration, clear, monotone, spontaneous TP: some derailment at times TC: Mood: good Affect: constricted affect, but congruent SI: denies HI: denies VH/AH: no overt signs Delusions: no overt delusional content Insight/judgment: impaired x 2. Memory/cog: alert, oriented to fact that she is in the hospital and month, not to situation. Diagnostics Vital Signs (24Hr): Vital Signs - 24 hr 11/01/24 20:00 11/02/24 08:11 Temperature 98.4 F 98.2 F Pulse Rate 86 91 Respiratory Rate 15 15 Blood Pressure 131/71 120/69 Pulse Oximetry 96 94 Oxygen Delivery Method Room Air BMI result Body Mass Index 43.3 Labs 10/28/24 08:44 Medications Medications Current Medications Acetaminophen (Acetaminophen 325 Mg Tablet) 650 mg PO Q6H PRN PRN Reason: Headache/Pain, Scale 1-10 Last Admin: 10/28/24 13:48 Dose: 650 mg Al Hydroxide/Mg Hydroxide (Magnesium Hydrox/Alum Hydrox 30 Ml Oral.Susp) 30 ml PO Q6H PRN PRN Reason: Heartburn/Nausea Apixaban (Apixaban 5 Mg Tablet) 5 mg PO BID [facility] Last Admin: 11/02/24 08:13 Dose: 5 mg Atorvastatin Calcium (Atorvastatin Calcium 20 Mg Tablet) 20 mg PO BEDTIME [facility] Last Admin: 11/01/24 20:12 Dose: 20 mg Ergocalciferol (Ergocalciferol (Vitamin D2) 1,250 Mcg Capsule) 1,250 mcg PO Fr@0900 [facility] Last Admin: 10/28/24 13:17 Dose: 1,250 mcg Folic Acid (Folic Acid 1 Mg Tablet) 5 mg PO DAILY [facility] Last Admin: 11/02/24 08:13 Dose: 5 mg Hydroxyzine HCl (Hydroxyzine Hcl 25 Mg Tablet) 25 mg PO Q6H PRN PRN Reason: mild anxiety Last Admin: 10/28/24 14:02 Dose: 25 mg Lorazepam (Lorazepam 0.5 Mg Tablet) 0.5 mg PO TID [facility] Last Admin: 11/02/24 08:13 Dose: 0.5 mg Magnesium Hydroxide (Milk Of Magnesia 30 Ml Oral.Susp) 30 ml PO DAILY PRN PRN Reason: Constipation Memantine (Memantine Hcl 5 Mg Tablet) 5 mg PO BID [facility] Last Admin: 11/02/24 08:13 Dose: 5 mg Methimazole (Methimazole 5 Mg Tablet) 5 mg PO DAILY [facility] Last Admin: 11/02/24 08:13 Dose: 5 mg Nicotine Polacrilex (Nicotine Polacrilex 2 Mg Gum) 4 mg BUCCAL Q2H PRN PRN Reason: Nicotine Cravings Olanzapine (Olanzapine 2.5 Mg Tablet) 2.5 mg PO TID PRN PRN Reason: agitation Oxcarbazepine (Oxcarbazepine 300 Mg Tablet) 600 mg PO BID [facility] Last Admin: 11/02/24 08:13 Dose: 600 mg Pyridoxine HCl (Pyridoxine Hcl (Vitamin B6) 50 Mg Tablet) 50 mg PO DAILY [facility] Last Admin: 11/02/24 08:13 Dose: 50 mg Quetiapine Fumarate (Quetiapine Fumarate 50 Mg Tablet) 50 mg PO BEDTIME [facility] Last Admin: 11/01/24 20:12 Dose: 50 mg Senna (Sennosides 8.6 Mg Tablet) 17.2 mg PO BEDTIME PRN PRN Reason: Constipation Trazodone HCl (Trazodone Hcl 50 Mg Tablet) 50 mg PO BEDTIME MRX1 PRN PRN Reason: Insomnia Last Admin: 10/31/24 20:38 Dose: 50 mg Allergies Allergies Allergy/AdvReac Type Severity Reaction Status Date / Time artichoke Allergy Swelling Verified 10/27/24 23:58 perphenazine [From Trilafon] Allergy Anaphylaxis Verified 10/27/24 23:55 tree nut Allergy Unknown Verified 10/27/24 23:58 walnut Allergy Unknown Verified 10/27/24 23:58 Assessment & Plan Assessment & Plan (1) Frontotemporal dementia with behavioral disturbance: Status: Acute Code(s): G31.09 - Other frontotemporal neurocognitive disorder; F02.818 - Dementia in other diseases classified elsewhere, unspecified severity, with other behavioral disturbance (2) Bipolar disorder: Status: Acute Code(s): F31.9 - Bipolar disorder, unspecified (3) Goiter with hyperthyroidism: Status: Acute Code(s): E05.00 - Thyrotoxicosis with diffuse goiter without thyrotoxic crisis or storm Assessment and Plan: TSH-2.32 On tapazole 5mg po daily (4) CHF (congestive heart failure): Status: Acute Code(s): I50.9 - Heart failure, unspecified (5) Asthma: Status: Acute Code(s): J45.909 - Unspecified asthma, uncomplicated Plan Mrs. Duarte is a 59 year-old woman with hx of frontotemporal dementia, Bipolar Disorder who was brought to [facility] ED due to presenting with s/s of catatonia including staring, verbigeration, negativism, purposeless behaviors which apparently is similar presentation as last year when she was diagnosed with Frontotemporal dementia. Frontotemporal Dementia does have higher risk of catatonia like symptoms and not uncommon presentation. On the unit, she received ativan 1mg with good effect improving s/s of verbigeration, catatonia. Will obtain records from [facility] and OP providers. Discussed with patient and patient's HCP Eliud, increasing ativan 1mg po TID. Will continue seroquel 50mg po qhs. PLAN 10/29 continue ativan 1mg po TID, currently on seroquel, somewhat expansive mood,visible taking medications. 10/30 continues on and off with verbigeration, along with confusion or disorganized thinking/logic when this happens. will lower ativan 0.5mg po TID- will request records tomorrow from [facility]. 10/31 continue tx. Left VM to her psychiatric provider. 11/01 continue tx. pending records from [facility] 11/02 increase seroquel to 75mg po qhs. Reason for continued inpatient stay Substantial Risk for: inability to function Time Spent With Patient Time: Total time managing care of this patient today ____ minutes.
[2024-11-02 20:00] VITALS: BP 118/68; PULSE 82; RESP 18; TEMP 36.5; O2SAT 94
[2024-11-02] MEDS: Atorvastatin Calcium 20 MG TABLET PO (21:30)
[2024-11-02] MEDS: QUEtiapine Fumarate 50 MG TABLET PO (21:31)
[2024-11-02] MEDS: traZODone HCL 50 MG TABLET PO (21:31)
[2024-11-03 08:56] VITALS: BP 135/68; PULSE 89; RESP 16; TEMP 36.8; O2SAT 97
[2024-11-03] MEDS: Memantine HCl 5 MG TABLET PO ×2 (08:57→19:40)
[2024-11-03] MEDS: OXcarbazepine 300 MG TABLET 600 MG PO ×2 (08:57→19:40)
[2024-11-03] MEDS: LORazepam 0.5 MG TABLET PO ×3 (08:57→19:40)
[2024-11-03] MEDS: methIMAzole 5 MG TABLET PO (08:57)
[2024-11-03] MEDS: Apixaban 5 MG TABLET PO ×2 (08:58→19:40)
[2024-11-03] MEDS: Pyridoxine HCl (Vitamin B6) 50 MG TABLET PO (08:58)
[2024-11-03] MEDS: Folic Acid 1 MG TABLET 5 MG PO (08:58)
[2024-11-03 13:52] VITALS: BMI 41.2
--- NOTE | 2024-11-03 14:59 | HO.PSYCHPN ---
Subjective Subjective Date of Service: 11/03/24 Reason For Visit: Dementia W/Behavioral Disturbances Interim History: c/o diarrhea, informed imodium would be made available. no other complaints or requests. palilalia. Mental Status Exam Mental Status Exam Narrative: Appearance: wearing casual clothing, appears stated age, in NAD Behavior:seemingly cooperative Psychomotor: no agitation or retardation noted Speech: palilalia, clear, monotone, spontaneous TP: some derailment at times TC: diarrhea Mood: good Affect: constricted affect, but congruent SI: denies HI: denies VH/AH: no overt signs Delusions: no overt delusional content Insight/judgment: impaired x 2. Memory/cog: alert, oriented to fact that she is in the hospital and month, not to situation. Diagnostics Vital Signs (24Hr): Vital Signs - 24 hr 11/02/24 20:00 11/03/24 08:56 Temperature 97.7 F 98.2 F Pulse Rate 82 89 Respiratory Rate 18 16 Blood Pressure 118/68 135/68 Pulse Oximetry 94 97 Oxygen Delivery Method Room Air Room Air BMI result Body Mass Index 41.2 Labs 10/28/24 08:44 Medications Medications Current Medications Acetaminophen (Acetaminophen 325 Mg Tablet) 650 mg PO Q6H PRN PRN Reason: Headache/Pain, Scale 1-10 Last Admin: 10/28/24 13:48 Dose: 650 mg Al Hydroxide/Mg Hydroxide (Magnesium Hydrox/Alum Hydrox 30 Ml Oral.Susp) 30 ml PO Q6H PRN PRN Reason: Heartburn/Nausea Apixaban (Apixaban 5 Mg Tablet) 5 mg PO BID [facility] Last Admin: 11/03/24 08:58 Dose: 5 mg Atorvastatin Calcium (Atorvastatin Calcium 20 Mg Tablet) 20 mg PO BEDTIME [facility] Last Admin: 11/02/24 21:30 Dose: 20 mg Ergocalciferol (Ergocalciferol (Vitamin D2) 1,250 Mcg Capsule) 1,250 mcg PO Fr@0900 [facility] Last Admin: 10/28/24 13:17 Dose: 1,250 mcg Folic Acid (Folic Acid 1 Mg Tablet) 5 mg PO DAILY [facility] Last Admin: 11/03/24 08:58 Dose: 5 mg Hydroxyzine HCl (Hydroxyzine Hcl 25 Mg Tablet) 25 mg PO Q6H PRN PRN Reason: mild anxiety Last Admin: 10/28/24 14:02 Dose: 25 mg Loperamide HCl (Loperamide Hcl 2 Mg Capsule) 2 mg PO Q4H PRN PRN Reason: diarrhea Lorazepam (Lorazepam 0.5 Mg Tablet) 0.5 mg PO TID [facility] Last Admin: 11/03/24 08:57 Dose: 0.5 mg Magnesium Hydroxide (Milk Of Magnesia 30 Ml Oral.Susp) 30 ml PO DAILY PRN PRN Reason: Constipation Memantine (Memantine Hcl 5 Mg Tablet) 5 mg PO BID [facility] Last Admin: 11/03/24 08:57 Dose: 5 mg Methimazole (Methimazole 5 Mg Tablet) 5 mg PO DAILY [facility] Last Admin: 11/03/24 08:57 Dose: 5 mg Nicotine Polacrilex (Nicotine Polacrilex 2 Mg Gum) 4 mg BUCCAL Q2H PRN PRN Reason: Nicotine Cravings Olanzapine (Olanzapine 2.5 Mg Tablet) 2.5 mg PO TID PRN PRN Reason: agitation Oxcarbazepine (Oxcarbazepine 300 Mg Tablet) 600 mg PO BID [facility] Last Admin: 11/03/24 08:57 Dose: 600 mg Pyridoxine HCl (Pyridoxine Hcl (Vitamin B6) 50 Mg Tablet) 50 mg PO DAILY [facility] Last Admin: 11/03/24 08:58 Dose: 50 mg Quetiapine Fumarate (Quetiapine Fumarate 25 Mg Tablet) 75 mg PO BEDTIME [facility] Senna (Sennosides 8.6 Mg Tablet) 17.2 mg PO BEDTIME PRN PRN Reason: Constipation Trazodone HCl (Trazodone Hcl 50 Mg Tablet) 50 mg PO BEDTIME MRX1 PRN PRN Reason: Insomnia Last Admin: 11/02/24 21:31 Dose: 50 mg Allergies Allergies Allergy/AdvReac Type Severity Reaction Status Date / Time artichoke Allergy Swelling Verified 10/27/24 23:58 perphenazine [From Trilafon] Allergy Anaphylaxis Verified 10/27/24 23:55 tree nut Allergy Unknown Verified 10/27/24 23:58 walnut Allergy Unknown Verified 10/27/24 23:58 Assessment & Plan Assessment & Plan (1) Frontotemporal dementia with behavioral disturbance: Status: Acute Code(s): G31.09 - Other frontotemporal neurocognitive disorder; F02.818 - Dementia in other diseases classified elsewhere, unspecified severity, with other behavioral disturbance (2) Bipolar disorder: Status: Acute Code(s): F31.9 - Bipolar disorder, unspecified (3) Goiter with hyperthyroidism: Status: Acute Code(s): E05.00 - Thyrotoxicosis with diffuse goiter without thyrotoxic crisis or storm Assessment and Plan: TSH-2.32 On tapazole 5mg po daily (4) CHF (congestive heart failure): Status: Acute Code(s): I50.9 - Heart failure, unspecified (5) Asthma: Status: Acute Code(s): J45.909 - Unspecified asthma, uncomplicated Plan Mrs. Duarte is a 59 year-old woman with hx of frontotemporal dementia, Bipolar Disorder who was brought to [facility] ED due to presenting with s/s of catatonia including staring, verbigeration, negativism, purposeless behaviors which apparently is similar presentation as last year when she was diagnosed with Frontotemporal dementia. Frontotemporal Dementia does have higher risk of catatonia like symptoms and not uncommon presentation. On the unit, she received ativan 1mg with good effect improving s/s of verbigeration, catatonia. Will obtain records from [facility] and OP providers. Discussed with patient and patient's HCP Eliud, increasing ativan 1mg po TID. Will continue seroquel 50mg po qhs. PLAN 10/29 continue ativan 1mg po TID, currently on seroquel, somewhat expansive mood,visible taking medications. 10/30 continues on and off with verbigeration, along with confusion or disorganized thinking/logic when this happens. will lower ativan 0.5mg po TID- will request records tomorrow from [facility]. 10/31 continue tx. Left VM to her psychiatric provider. 11/01 continue tx. pending records from [facility] 11/02 increase seroquel to 75mg po qhs. 11/03: c/o diarrhea, imodium PRN ordered. otherwise continue current mgmt. modestly interacting. palilalia. Reason for continued inpatient stay Substantial Risk for: inability to function Time Spent With Patient Time: Total time managing care of this patient today ____ minutes.
[2024-11-03] MEDS: Atorvastatin Calcium 20 MG TABLET PO (19:39)
[2024-11-03] MEDS: QUEtiapine Fumarate 25 MG TABLET 75 MG PO (19:39)
[2024-11-03 19:41] VITALS: BP 134/68; PULSE 86; RESP 16; TEMP 36.2; O2SAT 96
[2024-11-03] MEDS: traZODone HCL 50 MG TABLET PO (22:58)
[2024-11-03] MEDS: OLANZapine 2.5 MG TABLET PO (22:58)
[2024-11-04 08:00] VITALS: BP 121/73; PULSE 97; RESP 18; TEMP 36.8; O2SAT 95
[2024-11-04] MEDS: methIMAzole 5 MG TABLET PO (08:16)
[2024-11-04] MEDS: Pyridoxine HCl (Vitamin B6) 50 MG TABLET PO (08:16)
[2024-11-04] MEDS: Apixaban 5 MG TABLET PO ×2 (08:16→21:23)
[2024-11-04] MEDS: Folic Acid 1 MG TABLET 5 MG PO (08:16)
[2024-11-04] MEDS: OXcarbazepine 300 MG TABLET 600 MG PO ×2 (08:16→21:24)
[2024-11-04] MEDS: LORazepam 0.5 MG TABLET PO (08:17)
[2024-11-04] MEDS: Memantine HCl 5 MG TABLET PO ×2 (08:17→21:23)
[2024-11-04] MEDS: Ergocalciferol (Vitamin D2) 1,250 MCG CAPSULE 1250 MCG PO (08:23)
--- NOTE | 2024-11-04 11:04 | P.PNPSI_ITS ---
Subjective Subjective Date of Service: 11/04/24 Reason For Visit: Dementia W/Behavioral Disturbances Subjective Notes: Conditional Voluntary Interim History: Pt slept through the night. Continues to present with palilalia (more precise description of repetition of words). She is visible on the unit, attends some groups. However, some disconnect between what she may say and her actions or contradiction in her answers. She denies any physical or psychiatric concerns. still awaiting called back from psychiatrist and records from [facility]. Medication Compliance: Yes Review of Systems Review of Systems Yes Unobtainable due to mental status Mental Status Exam Mental Status Exam Narrative: Appearance: wearing casual clothing, appears stated age, in NAD Behavior:seemingly cooperative Psychomotor: no agitation or retardation noted Speech: palilalia, clear, monotone, spontaneous TP: some derailment at times TC:doing well here Mood: good Affect: constricted affect, but congruent SI: denies HI: denies VH/AH: no overt signs Delusions: no overt delusional content Insight/judgment: impaired x 2. Memory/cog: alert, oriented to fact that she is in the hospital and month, not to situation. Diagnostics Vital Signs (24Hr): Vital Signs - 24 hr 11/03/24 19:41 11/04/24 08:00 Temperature 97.2 F 98.3 F Pulse Rate 86 97 Respiratory Rate 16 18 Blood Pressure 134/68 121/73 Pulse Oximetry 96 95 Oxygen Delivery Method Room Air Room Air BMI result Body Mass Index 41.2 Labs 10/28/24 08:44 Medications Medications Current Medications Acetaminophen (Acetaminophen 325 Mg Tablet) 650 mg PO Q6H PRN PRN Reason: Headache/Pain, Scale 1-10 Last Admin: 10/28/24 13:48 Dose: 650 mg Al Hydroxide/Mg Hydroxide (Magnesium Hydrox/Alum Hydrox 30 Ml Oral.Susp) 30 ml PO Q6H PRN PRN Reason: Heartburn/Nausea Apixaban (Apixaban 5 Mg Tablet) 5 mg PO BID [facility] Last Admin: 11/04/24 08:16 Dose: 5 mg Atorvastatin Calcium (Atorvastatin Calcium 20 Mg Tablet) 20 mg PO BEDTIME [facility] Last Admin: 11/03/24 19:39 Dose: 20 mg Ergocalciferol (Ergocalciferol (Vitamin D2) 1,250 Mcg Capsule) 1,250 mcg PO Fr@0900 [facility] Last Admin: 11/04/24 08:23 Dose: 1,250 mcg Folic Acid (Folic Acid 1 Mg Tablet) 5 mg PO DAILY [facility] Last Admin: 11/04/24 08:16 Dose: 5 mg Hydroxyzine HCl (Hydroxyzine Hcl 25 Mg Tablet) 25 mg PO Q6H PRN PRN Reason: mild anxiety Last Admin: 10/28/24 14:02 Dose: 25 mg Loperamide HCl (Loperamide Hcl 2 Mg Capsule) 2 mg PO Q4H PRN PRN Reason: diarrhea Lorazepam (Lorazepam 0.5 Mg Tablet) 0.5 mg PO TID [facility] Last Admin: 11/04/24 08:17 Dose: 0.5 mg Magnesium Hydroxide (Milk Of Magnesia 30 Ml Oral.Susp) 30 ml PO DAILY PRN PRN Reason: Constipation Memantine (Memantine Hcl 5 Mg Tablet) 5 mg PO BID [facility] Last Admin: 11/04/24 08:17 Dose: 5 mg Methimazole (Methimazole 5 Mg Tablet) 5 mg PO DAILY [facility] Last Admin: 11/04/24 08:16 Dose: 5 mg Nicotine Polacrilex (Nicotine Polacrilex 2 Mg Gum) 4 mg BUCCAL Q2H PRN PRN Reason: Nicotine Cravings Olanzapine (Olanzapine 2.5 Mg Tablet) 2.5 mg PO TID PRN PRN Reason: agitation Last Admin: 11/03/24 22:58 Dose: 2.5 mg Oxcarbazepine (Oxcarbazepine 300 Mg Tablet) 600 mg PO BID [facility] Last Admin: 11/04/24 08:16 Dose: 600 mg Pyridoxine HCl (Pyridoxine Hcl (Vitamin B6) 50 Mg Tablet) 50 mg PO DAILY [facility] Last Admin: 11/04/24 08:16 Dose: 50 mg Quetiapine Fumarate (Quetiapine Fumarate 25 Mg Tablet) 75 mg PO BEDTIME [facility] Last Admin: 11/03/24 19:39 Dose: 75 mg Senna (Sennosides 8.6 Mg Tablet) 17.2 mg PO BEDTIME PRN PRN Reason: Constipation Trazodone HCl (Trazodone Hcl 50 Mg Tablet) 50 mg PO BEDTIME MRX1 PRN PRN Reason: Insomnia Last Admin: 11/03/24 22:58 Dose: 50 mg Allergies Allergies Allergy/AdvReac Type Severity Reaction Status Date / Time artichoke Allergy Swelling Verified 10/27/24 23:58 perphenazine [From Trilafon] Allergy Anaphylaxis Verified 10/27/24 23:55 tree nut Allergy Unknown Verified 10/27/24 23:58 walnut Allergy Unknown Verified 10/27/24 23:58 Assessment & Plan Assessment & Plan (1) Frontotemporal dementia with behavioral disturbance: Status: Acute Code(s): G31.09 - Other frontotemporal neurocognitive disorder; F02.818 - Dementia in other diseases classified elsewhere, unspecified severity, with other behavioral disturbance (2) Bipolar disorder: Status: Acute Code(s): F31.9 - Bipolar disorder, unspecified (3) Goiter with hyperthyroidism: Status: Acute Code(s): E05.00 - Thyrotoxicosis with diffuse goiter without thyrotoxic crisis or storm Assessment and Plan: TSH-2.32 On tapazole 5mg po daily (4) CHF (congestive heart failure): Status: Acute Code(s): I50.9 - Heart failure, unspecified (5) Asthma: Status: Acute Code(s): J45.909 - Unspecified asthma, uncomplicated Plan Mrs. Duarte is a 59 year-old woman with hx of frontotemporal dementia, Bipolar Disorder who was brought to [facility] ED due to presenting with s/s of catatonia including staring, palilalia, negativism, purposeless behaviors which apparently is similar presentation as last year when she was diagnosed with Frontotemporal dementia. Frontotemporal Dementia does have higher risk of catatonia like symptoms and not uncommon presentation. On the unit, she received ativan 1mg with good effect improving s/s of verbigeration, catatonia. Will obtain records from [facility] and OP providers. Discussed with patient and patient's HCP Eliud, increasing ativan 1mg po TID. Will continue seroquel 50mg po qhs. PLAN 10/29 continue ativan 1mg po TID, currently on seroquel, somewhat expansive mood,visible taking medications. 10/30 continues on and off with verbigeration, along with confusion or disorganized thinking/logic when this happens. will lower ativan 0.5mg po TID- will request records tomorrow from [facility]. 10/31 continue tx. Left VM to her psychiatric provider. 11/01 continue tx. pending records from [facility] 11/02 increase seroquel to 75mg po qhs. 11/03: c/o diarrhea, imodium PRN ordered. otherwise continue current mgmt. modestly interacting. palilalia. 11/04 continue tx. may try increase in ativan for atypical features that may account for catatonia- including palilalia, purposeless behaviors such as standing up going in and out a room without clear purpose. Reason for continued inpatient stay Substantial Risk for: inability to function Time Spent With Patient Time: Total time managing care of this patient today ____ minutes.
[2024-11-04] MEDS: LORazepam 1 MG TABLET PO ×2 (14:55→21:23)
[2024-11-04 20:00] VITALS: BP 128/66; PULSE 87; RESP 18; TEMP 36.3; O2SAT 93
[2024-11-04] MEDS: Atorvastatin Calcium 20 MG TABLET PO (21:23)
[2024-11-04] MEDS: QUEtiapine Fumarate 25 MG TABLET 75 MG PO (21:24)
[2024-11-05] MEDS: traZODone HCL 50 MG TABLET PO (01:21)
[2024-11-05] MEDS: hydrOXYzine HCL 25 MG TABLET PO (01:23)
[2024-11-05 08:00] VITALS: BP 121/65; PULSE 87; RESP 18; TEMP 36.1; O2SAT 96
[2024-11-05] MEDS: LORazepam 1 MG TABLET PO ×3 (08:44→20:51)
[2024-11-05] MEDS: OXcarbazepine 300 MG TABLET 600 MG PO ×2 (08:44→20:51)
[2024-11-05] MEDS: methIMAzole 5 MG TABLET PO (08:44)
[2024-11-05] MEDS: Pyridoxine HCl (Vitamin B6) 50 MG TABLET PO (08:44)
[2024-11-05] MEDS: Apixaban 5 MG TABLET PO ×2 (08:44→20:50)
[2024-11-05] MEDS: Memantine HCl 5 MG TABLET PO ×2 (08:44→20:51)
[2024-11-05] MEDS: Folic Acid 1 MG TABLET 5 MG PO (08:44)
[2024-11-05 20:00] VITALS: BP 130/67; PULSE 93; RESP 18; TEMP 36.4; O2SAT 96
[2024-11-05] MEDS: Atorvastatin Calcium 20 MG TABLET PO (20:51)
[2024-11-05] MEDS: QUEtiapine Fumarate 25 MG TABLET 75 MG PO (20:51)
--- NOTE | 2024-11-05 23:31 | P.PNPSI_ITS ---
Subjective Subjective Date of Service: 11/05/24 Reason For Visit: Dementia W/Behavioral Disturbances Subjective Notes: Conditional Voluntary Interim History: Patient seen in psych follow-up case reviewed with nursing staff and treatment team. The patient's mood okay seen in the milieu Medication Compliance: Yes Mental Status Exam Mental Status Exam Narrative: Appearance: wearing casual clothing, Behavior:seemingly cooperative Psychomotor: no agitation or retardation noted Speech: clear, monotone, spontaneous TP: Mostly linear TC:doing well here Mood: good Affect: constricted affect, but congruent SI: denies HI: denies VH/AH: no overt signs Delusions: no overt delusional content Insight/judgment: impaired x 2. Memory/cog: alert know she is in a hospital Diagnostics Vital Signs (24Hr): Vital Signs - 24 hr 11/05/24 08:00 11/05/24 20:00 Temperature 96.9 F 97.6 F Pulse Rate 87 93 Respiratory Rate 18 18 Blood Pressure 121/65 130/67 Pulse Oximetry 96 96 Oxygen Delivery Method Room Air Room Air BMI result Body Mass Index 41.2 Labs 10/28/24 08:44 Medications Medications Current Medications Acetaminophen (Acetaminophen 325 Mg Tablet) 650 mg PO Q6H PRN PRN Reason: Headache/Pain, Scale 1-10 Last Admin: 10/28/24 13:48 Dose: 650 mg Al Hydroxide/Mg Hydroxide (Magnesium Hydrox/Alum Hydrox 30 Ml Oral.Susp) 30 ml PO Q6H PRN PRN Reason: Heartburn/Nausea Apixaban (Apixaban 5 Mg Tablet) 5 mg PO BID [facility] Last Admin: 11/05/24 20:50 Dose: 5 mg Atorvastatin Calcium (Atorvastatin Calcium 20 Mg Tablet) 20 mg PO BEDTIME [facility] Last Admin: 11/05/24 20:51 Dose: 20 mg Ergocalciferol (Ergocalciferol (Vitamin D2) 1,250 Mcg Capsule) 1,250 mcg PO Fr@0900 [facility] Last Admin: 11/04/24 08:23 Dose: 1,250 mcg Folic Acid (Folic Acid 1 Mg Tablet) 5 mg PO DAILY [facility] Last Admin: 11/05/24 08:44 Dose: 5 mg Hydroxyzine HCl (Hydroxyzine Hcl 25 Mg Tablet) 25 mg PO Q6H PRN PRN Reason: mild anxiety Last Admin: 11/05/24 01:23 Dose: 25 mg Loperamide HCl (Loperamide Hcl 2 Mg Capsule) 2 mg PO Q4H PRN PRN Reason: diarrhea Lorazepam (Lorazepam 1 Mg Tablet) 1 mg PO TID [facility] Last Admin: 11/05/24 20:51 Dose: 1 mg Magnesium Hydroxide (Milk Of Magnesia 30 Ml Oral.Susp) 30 ml PO DAILY PRN PRN Reason: Constipation Memantine (Memantine Hcl 5 Mg Tablet) 5 mg PO BID [facility] Last Admin: 11/05/24 20:51 Dose: 5 mg Methimazole (Methimazole 5 Mg Tablet) 5 mg PO DAILY [facility] Last Admin: 11/05/24 08:44 Dose: 5 mg Nicotine Polacrilex (Nicotine Polacrilex 2 Mg Gum) 4 mg BUCCAL Q2H PRN PRN Reason: Nicotine Cravings Olanzapine (Olanzapine 2.5 Mg Tablet) 2.5 mg PO TID PRN PRN Reason: agitation Last Admin: 11/03/24 22:58 Dose: 2.5 mg Oxcarbazepine (Oxcarbazepine 300 Mg Tablet) 600 mg PO BID [facility] Last Admin: 11/05/24 20:51 Dose: 600 mg Pyridoxine HCl (Pyridoxine Hcl (Vitamin B6) 50 Mg Tablet) 50 mg PO DAILY [facility] Last Admin: 11/05/24 08:44 Dose: 50 mg Quetiapine Fumarate (Quetiapine Fumarate 25 Mg Tablet) 75 mg PO BEDTIME [facility] Last Admin: 11/05/24 20:51 Dose: 75 mg Senna (Sennosides 8.6 Mg Tablet) 17.2 mg PO BEDTIME PRN PRN Reason: Constipation Trazodone HCl (Trazodone Hcl 50 Mg Tablet) 50 mg PO BEDTIME MRX1 PRN PRN Reason: Insomnia Last Admin: 11/05/24 01:21 Dose: 50 mg Allergies Allergies Allergy/AdvReac Type Severity Reaction Status Date / Time artichoke Allergy Swelling Verified 10/27/24 23:58 perphenazine [From Trilafon] Allergy Anaphylaxis Verified 10/27/24 23:55 tree nut Allergy Unknown Verified 10/27/24 23:58 walnut Allergy Unknown Verified 10/27/24 23:58 Assessment & Plan Assessment & Plan (1) Frontotemporal dementia with behavioral disturbance: Status: Acute Code(s): G31.09 - Other frontotemporal neurocognitive disorder; F02.818 - Dementia in other diseases classified elsewhere, unspecified severity, with other behavioral disturbance (2) Bipolar disorder: Status: Acute Code(s): F31.9 - Bipolar disorder, unspecified (3) Goiter with hyperthyroidism: Status: Acute Code(s): E05.00 - Thyrotoxicosis with diffuse goiter without thyrotoxic crisis or storm Assessment and Plan: TSH-2.32 On tapazole 5mg po daily (4) CHF (congestive heart failure): Status: Acute Code(s): I50.9 - Heart failure, unspecified (5) Asthma: Status: Acute Code(s): J45.909 - Unspecified asthma, uncomplicated Plan Mrs. Duarte is a 59 year-old woman with hx of frontotemporal dementia, Bipolar Disorder who was brought to [facility] ED due to presenting with s/s of catatonia including staring, palilalia, negativism, purposeless behaviors which apparently is similar presentation as last year when she was diagnosed with Frontotemporal dementia. Frontotemporal Dementia does have higher risk of catatonia like symptoms and not uncommon presentation. On the unit, she received ativan 1mg with good effect improving s/s of verbigeration, catatonia. Will obtain records from [facility] and OP providers. Discussed with patient and patient's HCP Eliud, increasing ativan 1mg po TID. Will continue seroquel 50mg po qhs. PLAN 10/29 continue ativan 1mg po TID, currently on seroquel, somewhat expansive mood,visible taking medications. 10/30 continues on and off with verbigeration, along with confusion or disorganized thinking/logic when this happens. will lower ativan 0.5mg po TID- will request records tomorrow from [facility] general. 10/31 continue tx. Left VM to her psychiatric provider. 11/01 continue tx. pending records from [facility] 11/02 increase seroquel to 75mg po qhs. 11/03: c/o diarrhea, imodium PRN ordered. otherwise continue current mgmt. modestly interacting. palilalia. 11/04 continue tx. may try increase in ativan for atypical features that may account for catatonia- including palilalia, purposeless behaviors such as standing up going in and out a room without clear purpose. 11/05/2024 Continue plan of care Reason for continued inpatient stay Substantial Risk for: inability to function and rapid decompensation Time Spent With Patient Time: Total time managing care of this patient today ____ minutes.
[2024-11-06 07:57] VITALS: BP 124/73; PULSE 97; RESP 20; TEMP 36.9; O2SAT 94
[2024-11-06] MEDS: methIMAzole 5 MG TABLET PO (07:59)
[2024-11-06] MEDS: Apixaban 5 MG TABLET PO ×2 (07:59→19:59)
[2024-11-06] MEDS: Folic Acid 1 MG TABLET 5 MG PO (08:00)
[2024-11-06] MEDS: LORazepam 1 MG TABLET PO ×3 (08:00→19:59)
[2024-11-06] MEDS: Memantine HCl 5 MG TABLET PO ×2 (08:01→19:59)
[2024-11-06] MEDS: Pyridoxine HCl (Vitamin B6) 50 MG TABLET PO (08:01)
[2024-11-06] MEDS: OXcarbazepine 300 MG TABLET 600 MG PO ×2 (08:02→19:59)
[2024-11-06] MEDS: Atorvastatin Calcium 20 MG TABLET PO (19:59)
[2024-11-06] MEDS: QUEtiapine Fumarate 25 MG TABLET 75 MG PO (19:59)
[2024-11-06 20:00] VITALS: BP 133/74; PULSE 88; RESP 18; TEMP 36.8; O2SAT 97
--- NOTE | 2024-11-06 22:33 | P.PNPSI_ITS ---
Subjective Subjective Date of Service: 11/06/24 Reason For Visit: Dementia W/Behavioral Disturbances Interim History: Patient seen in the [facility] engaged Medication Compliance: Yes Mental Status Exam Mental Status Exam Narrative: Appearance: wearing casual clothing, Behavior:seemingly cooperative Psychomotor: no agitation or retardation noted Speech: clear, monotone, spontaneous TP: Mostly linear TC:doing well here Mood: good Affect: constricted affect, but congruent SI: denies HI: denies VH/AH: no overt signs Delusions: no overt delusional content Insight/judgment: impaired x 2. Memory/cog: alert know she is in a hospital Diagnostics Vital Signs (24Hr): Vital Signs - 24 hr 11/06/24 07:57 11/06/24 20:00 Temperature 98.5 F 98.2 F Pulse Rate 97 88 Respiratory Rate 20 18 Blood Pressure 124/73 133/74 Pulse Oximetry 94 97 Oxygen Delivery Method Room Air Room Air BMI result Body Mass Index 41.2 Labs 10/28/24 08:44 Medications Medications Current Medications Acetaminophen (Acetaminophen 325 Mg Tablet) 650 mg PO Q6H PRN PRN Reason: Headache/Pain, Scale 1-10 Last Admin: 10/28/24 13:48 Dose: 650 mg Al Hydroxide/Mg Hydroxide (Magnesium Hydrox/Alum Hydrox 30 Ml Oral.Susp) 30 ml PO Q6H PRN PRN Reason: Heartburn/Nausea Apixaban (Apixaban 5 Mg Tablet) 5 mg PO BID [facility] Last Admin: 11/06/24 19:59 Dose: 5 mg Atorvastatin Calcium (Atorvastatin Calcium 20 Mg Tablet) 20 mg PO BEDTIME [facility] Last Admin: 11/06/24 19:59 Dose: 20 mg Ergocalciferol (Ergocalciferol (Vitamin D2) 1,250 Mcg Capsule) 1,250 mcg PO Fr@0900 [facility] Last Admin: 11/04/24 08:23 Dose: 1,250 mcg Folic Acid (Folic Acid 1 Mg Tablet) 5 mg PO DAILY [facility] Last Admin: 11/06/24 08:00 Dose: 5 mg Hydroxyzine HCl (Hydroxyzine Hcl 25 Mg Tablet) 25 mg PO Q6H PRN PRN Reason: mild anxiety Last Admin: 11/05/24 01:23 Dose: 25 mg Loperamide HCl (Loperamide Hcl 2 Mg Capsule) 2 mg PO Q4H PRN PRN Reason: diarrhea Lorazepam (Lorazepam 1 Mg Tablet) 1 mg PO TID [facility] Last Admin: 11/06/24 19:59 Dose: 1 mg Magnesium Hydroxide (Milk Of Magnesia 30 Ml Oral.Susp) 30 ml PO DAILY PRN PRN Reason: Constipation Memantine (Memantine Hcl 5 Mg Tablet) 5 mg PO BID [facility] Last Admin: 11/06/24 19:59 Dose: 5 mg Methimazole (Methimazole 5 Mg Tablet) 5 mg PO DAILY [facility] Last Admin: 11/06/24 07:59 Dose: 5 mg Nicotine Polacrilex (Nicotine Polacrilex 2 Mg Gum) 4 mg BUCCAL Q2H PRN PRN Reason: Nicotine Cravings Olanzapine (Olanzapine 2.5 Mg Tablet) 2.5 mg PO TID PRN PRN Reason: agitation Last Admin: 11/03/24 22:58 Dose: 2.5 mg Oxcarbazepine (Oxcarbazepine 300 Mg Tablet) 600 mg PO BID [facility] Last Admin: 11/06/24 19:59 Dose: 600 mg Pyridoxine HCl (Pyridoxine Hcl (Vitamin B6) 50 Mg Tablet) 50 mg PO DAILY [facility] Last Admin: 11/06/24 08:01 Dose: 50 mg Quetiapine Fumarate (Quetiapine Fumarate 25 Mg Tablet) 75 mg PO BEDTIME [facility] Last Admin: 11/06/24 19:59 Dose: 75 mg Senna (Sennosides 8.6 Mg Tablet) 17.2 mg PO BEDTIME PRN PRN Reason: Constipation Trazodone HCl (Trazodone Hcl 50 Mg Tablet) 50 mg PO BEDTIME MRX1 PRN PRN Reason: Insomnia Last Admin: 11/05/24 01:21 Dose: 50 mg Allergies Allergies Allergy/AdvReac Type Severity Reaction Status Date / Time artichoke Allergy Swelling Verified 10/27/24 23:58 perphenazine [From Trilafon] Allergy Anaphylaxis Verified 10/27/24 23:55 tree nut Allergy Unknown Verified 10/27/24 23:58 walnut Allergy Unknown Verified 10/27/24 23:58 Assessment & Plan Assessment & Plan (1) Frontotemporal dementia with behavioral disturbance: Status: Acute Code(s): G31.09 - Other frontotemporal neurocognitive disorder; F02.818 - Dementia in other diseases classified elsewhere, unspecified severity, with other behavioral disturbance (2) Bipolar disorder: Status: Acute Code(s): F31.9 - Bipolar disorder, unspecified (3) Goiter with hyperthyroidism: Status: Acute Code(s): E05.00 - Thyrotoxicosis with diffuse goiter without thyrotoxic crisis or storm Assessment and Plan: TSH-2.32 On tapazole 5mg po daily (4) CHF (congestive heart failure): Status: Acute Code(s): I50.9 - Heart failure, unspecified (5) Asthma: Status: Acute Code(s): J45.909 - Unspecified asthma, uncomplicated Plan Mrs. Duarte is a 59 year-old woman with hx of frontotemporal dementia, Bipolar Disorder who was brought to [facility] ED due to presenting with s/s of catatonia including staring, palilalia, negativism, purposeless behaviors which apparently is similar presentation as last year when she was diagnosed with Frontotemporal dementia. Frontotemporal Dementia does have higher risk of catatonia like symptoms and not uncommon presentation. On the unit, she received ativan 1mg with good effect improving s/s of verbigeration, catatonia. Will obtain records from [facility] and OP providers. Discussed with patient and patient's HCP Eliud, increasing ativan 1mg po TID. Will continue seroquel 50mg po qhs. PLAN 10/29 continue ativan 1mg po TID, currently on seroquel, somewhat expansive mood,visible taking medications. 10/30 continues on and off with verbigeration, along with confusion or disorganized thinking/logic when this happens. will lower ativan 0.5mg po TID- will request records tomorrow from [facility] general. 10/31 continue tx. Left VM to her psychiatric provider. 11/01 continue tx. pending records from [facility] 11/02 increase seroquel to 75mg po qhs. 11/03: c/o diarrhea, imodium PRN ordered. otherwise continue current mgmt. modestly interacting. palilalia. 11/04 continue tx. may try increase in ativan for atypical features that may account for catatonia- including palilalia, purposeless behaviors such as standing up going in and out a room without clear purpose. 11/05/2024 Continue plan of care 11/06/2024 Continue plan of care Reason for continued inpatient stay Substantial Risk for: inability to function and rapid decompensation Time Spent With Patient Time: Total time managing care of this patient today ____ minutes.
[2024-11-07 08:00] VITALS: BP 134/78; PULSE 99; RESP 18; TEMP 36.8; O2SAT 96
[2024-11-07] MEDS: LORazepam 1 MG TABLET PO ×3 (08:43→21:51)
[2024-11-07] MEDS: Memantine HCl 5 MG TABLET PO ×2 (08:43→21:51)
[2024-11-07] MEDS: Pyridoxine HCl (Vitamin B6) 50 MG TABLET PO (08:43)
[2024-11-07] MEDS: Apixaban 5 MG TABLET PO ×2 (08:43→21:51)
[2024-11-07] MEDS: OXcarbazepine 300 MG TABLET 600 MG PO ×2 (08:43→21:50)
[2024-11-07] MEDS: Folic Acid 1 MG TABLET 5 MG PO (08:43)
[2024-11-07] MEDS: methIMAzole 5 MG TABLET PO (08:43)
--- NOTE | 2024-11-07 12:10 | P.PNPSI_ITS ---
Subjective Subjective Date of Service: 11/07/24 Reason For Visit: Dementia W/Behavioral Disturbances Subjective Notes: Conditional Voluntary Interim History: Pt slept through the night. She attends groups, not interacting much with peers. She continues to have palilalia, thought process more sensical. blank stare continues. No behavioral concerns. She is taking medications as prescribed. Review of Systems Review of Systems Yes Unobtainable due to mental status Mental Status Exam Mental Status Exam Narrative: Appearance: wearing casual clothing, Behavior:seemingly cooperative Psychomotor: no agitation or retardation noted Speech: clear, monotone, spontaneous TP: Mostly linear TC:doing well here Mood: good Affect: constricted affect, but congruent SI: denies HI: denies VH/AH: no overt signs Delusions: no overt delusional content Insight/judgment: impaired x 2. Memory/cog: alert know she is in a hospital Diagnostics Vital Signs (24Hr): Vital Signs - 24 hr 11/06/24 20:00 11/07/24 08:00 Temperature 98.2 F 98.2 F Pulse Rate 88 99 Respiratory Rate 18 18 Blood Pressure 133/74 134/78 Pulse Oximetry 97 96 Oxygen Delivery Method Room Air Room Air BMI result Body Mass Index 41.2 Labs 10/28/24 08:44 Medications Medications Current Medications Acetaminophen (Acetaminophen 325 Mg Tablet) 650 mg PO Q6H PRN PRN Reason: Headache/Pain, Scale 1-10 Last Admin: 10/28/24 13:48 Dose: 650 mg Al Hydroxide/Mg Hydroxide (Magnesium Hydrox/Alum Hydrox 30 Ml Oral.Susp) 30 ml PO Q6H PRN PRN Reason: Heartburn/Nausea Apixaban (Apixaban 5 Mg Tablet) 5 mg PO BID [facility] Last Admin: 11/07/24 08:43 Dose: 5 mg Atorvastatin Calcium (Atorvastatin Calcium 20 Mg Tablet) 20 mg PO BEDTIME [facility] Last Admin: 11/06/24 19:59 Dose: 20 mg Ergocalciferol (Ergocalciferol (Vitamin D2) 1,250 Mcg Capsule) 1,250 mcg PO Fr@0900 [facility] Last Admin: 11/04/24 08:23 Dose: 1,250 mcg Folic Acid (Folic Acid 1 Mg Tablet) 5 mg PO DAILY [facility] Last Admin: 11/07/24 08:43 Dose: 5 mg Hydroxyzine HCl (Hydroxyzine Hcl 25 Mg Tablet) 25 mg PO Q6H PRN PRN Reason: mild anxiety Last Admin: 11/05/24 01:23 Dose: 25 mg Loperamide HCl (Loperamide Hcl 2 Mg Capsule) 2 mg PO Q4H PRN PRN Reason: diarrhea Lorazepam (Lorazepam 1 Mg Tablet) 1 mg PO TID [facility] Last Admin: 11/07/24 08:43 Dose: 1 mg Magnesium Hydroxide (Milk Of Magnesia 30 Ml Oral.Susp) 30 ml PO DAILY PRN PRN Reason: Constipation Memantine (Memantine Hcl 5 Mg Tablet) 5 mg PO BID [facility] Last Admin: 11/07/24 08:43 Dose: 5 mg Methimazole (Methimazole 5 Mg Tablet) 5 mg PO DAILY [facility] Last Admin: 11/07/24 08:43 Dose: 5 mg Nicotine Polacrilex (Nicotine Polacrilex 2 Mg Gum) 4 mg BUCCAL Q2H PRN PRN Reason: Nicotine Cravings Olanzapine (Olanzapine 2.5 Mg Tablet) 2.5 mg PO TID PRN PRN Reason: agitation Last Admin: 11/03/24 22:58 Dose: 2.5 mg Oxcarbazepine (Oxcarbazepine 300 Mg Tablet) 600 mg PO BID [facility] Last Admin: 11/07/24 08:43 Dose: 600 mg Pyridoxine HCl (Pyridoxine Hcl (Vitamin B6) 50 Mg Tablet) 50 mg PO DAILY [facility] Last Admin: 11/07/24 08:43 Dose: 50 mg Quetiapine Fumarate (Quetiapine Fumarate 25 Mg Tablet) 75 mg PO BEDTIME [facility] Last Admin: 11/06/24 19:59 Dose: 75 mg Senna (Sennosides 8.6 Mg Tablet) 17.2 mg PO BEDTIME PRN PRN Reason: Constipation Trazodone HCl (Trazodone Hcl 50 Mg Tablet) 50 mg PO BEDTIME MRX1 PRN PRN Reason: Insomnia Last Admin: 11/05/24 01:21 Dose: 50 mg Allergies Allergies Allergy/AdvReac Type Severity Reaction Status Date / Time artichoke Allergy Swelling Verified 10/27/24 23:58 perphenazine [From Trilafon] Allergy Anaphylaxis Verified 10/27/24 23:55 tree nut Allergy Unknown Verified 10/27/24 23:58 walnut Allergy Unknown Verified 10/27/24 23:58 Assessment & Plan Assessment & Plan (1) Frontotemporal dementia with behavioral disturbance: Status: Acute Code(s): G31.09 - Other frontotemporal neurocognitive disorder; F02.818 - Dementia in other diseases classified elsewhere, unspecified severity, with other behavioral disturbance (2) Bipolar disorder: Status: Acute Code(s): F31.9 - Bipolar disorder, unspecified (3) Goiter with hyperthyroidism: Status: Acute Code(s): E05.00 - Thyrotoxicosis with diffuse goiter without thyrotoxic crisis or storm Assessment and Plan: TSH-2.32 On tapazole 5mg po daily (4) CHF (congestive heart failure): Status: Acute Code(s): I50.9 - Heart failure, unspecified (5) Asthma: Status: Acute Code(s): J45.909 - Unspecified asthma, uncomplicated Plan Mrs. Duarte is a 59 year-old woman with hx of frontotemporal dementia, Bipolar Disorder who was brought to [facility] ED due to presenting with s/s of catatonia including staring, palilalia, negativism, purposeless behaviors which apparently is similar presentation as last year when she was diagnosed with Frontotemporal dementia. Frontotemporal Dementia does have higher risk of catatonia like symptoms and not uncommon presentation. On the unit, she received ativan 1mg with good effect improving s/s of verbigeration, catatonia. Will obtain records from [facility] and OP providers. Discussed with patient and patient's HCP Eliud, increasing ativan 1mg po TID. Will continue seroquel 50mg po qhs. PLAN 10/29 continue ativan 1mg po TID, currently on seroquel, somewhat expansive mood,visible taking medications. 10/30 continues on and off with verbigeration, along with confusion or disorganized thinking/logic when this happens. will lower ativan 0.5mg po TID- will request records tomorrow from [facility] general. 10/31 continue tx. Left VM to her psychiatric provider. 11/01 continue tx. pending records from [facility] 11/02 increase seroquel to 75mg po qhs. 11/03: c/o diarrhea, imodium PRN ordered. otherwise continue current mgmt. modestly interacting. palilalia. 11/04 continue tx. may try increase in ativan for atypical features that may account for catatonia- including palilalia, purposeless behaviors such as standing up going in and out a room without clear purpose. 11/05/2024 Continue plan of care 11/06/2024 Continue plan of care 11/07 continue tx. awaiting records from [facility]. Reason for continued inpatient stay Substantial Risk for: inability to function Time Spent With Patient Time: Total time managing care of this patient today ____ minutes.
[2024-11-07 20:00] VITALS: BP 109/53; PULSE 98; TEMP 37.1; O2SAT 94
[2024-11-07] MEDS: Atorvastatin Calcium 20 MG TABLET PO (21:51)
[2024-11-07] MEDS: QUEtiapine Fumarate 25 MG TABLET 75 MG PO (21:51)
[2024-11-08] MEDS: traZODone HCL 50 MG TABLET PO (01:23)
[2024-11-08] MEDS: hydrOXYzine HCL 25 MG TABLET PO (01:23)
[2024-11-08 08:00] VITALS: BP 133/65; PULSE 99; RESP 16; TEMP 37.2; O2SAT 96
[2024-11-08] MEDS: Apixaban 5 MG TABLET PO ×2 (08:10→20:14)
[2024-11-08] MEDS: Pyridoxine HCl (Vitamin B6) 50 MG TABLET PO (08:10)
[2024-11-08] MEDS: Memantine HCl 5 MG TABLET PO (08:10)
[2024-11-08] MEDS: OXcarbazepine 300 MG TABLET 600 MG PO (08:10)
[2024-11-08] MEDS: Folic Acid 1 MG TABLET 5 MG PO (08:10)
[2024-11-08] MEDS: LORazepam 1 MG TABLET PO ×3 (08:10→20:14)
[2024-11-08] MEDS: methIMAzole 5 MG TABLET PO (08:10)
--- NOTE | 2024-11-08 19:08 | HO.PSYCHPN ---
Subjective Subjective Date of Service: 11/08/24 Reason For Visit: Dementia W/Behavioral Disturbances Interim History: Pt slept through the night. She attends groups, not interacting much with peers. She continues to have palilalia, thought process more sensical. blank stare continues. No behavioral concerns. She is taking medications as prescribed. We had family meeting discussed d/c trileptal, trial of lithium low dose, monitor renal function. WIll also increase namenda to target catatonia like s/s Review of Systems Review of Systems Yes Unobtainable due to mental status Mental Status Exam Mental Status Exam Narrative: Appearance: wearing casual clothing, Behavior:seemingly cooperative Psychomotor: no agitation or retardation noted Speech: clear, monotone, spontaneous TP: Mostly linear TC:doing well here Mood: good Affect: constricted affect, but congruent SI: denies HI: denies VH/AH: no overt signs Delusions: no overt delusional content Insight/judgment: impaired x 2. Memory/cog: alert know she is in a hospital Diagnostics Vital Signs (24Hr): Vital Signs - 24 hr 11/07/24 20:00 11/08/24 08:00 Temperature 98.7 F 99.0 F Pulse Rate 98 99 Respiratory Rate 16 Blood Pressure 109/53 L 133/65 Pulse Oximetry 94 96 Oxygen Delivery Method Room Air Room Air BMI result Body Mass Index 41.2 Labs 10/28/24 08:44 Medications Medications Current Medications Acetaminophen (Acetaminophen 325 Mg Tablet) 650 mg PO Q6H PRN PRN Reason: Headache/Pain, Scale 1-10 Last Admin: 10/28/24 13:48 Dose: 650 mg Al Hydroxide/Mg Hydroxide (Magnesium Hydrox/Alum Hydrox 30 Ml Oral.Susp) 30 ml PO Q6H PRN PRN Reason: Heartburn/Nausea Apixaban (Apixaban 5 Mg Tablet) 5 mg PO BID [facility] Last Admin: 11/08/24 08:10 Dose: 5 mg Atorvastatin Calcium (Atorvastatin Calcium 20 Mg Tablet) 20 mg PO BEDTIME [facility] Last Admin: 11/07/24 21:51 Dose: 20 mg Ergocalciferol (Ergocalciferol (Vitamin D2) 1,250 Mcg Capsule) 1,250 mcg PO Fr@0900 [facility] Last Admin: 11/04/24 08:23 Dose: 1,250 mcg Folic Acid (Folic Acid 1 Mg Tablet) 5 mg PO DAILY [facility] Last Admin: 11/08/24 08:10 Dose: 5 mg Hydroxyzine HCl (Hydroxyzine Hcl 25 Mg Tablet) 25 mg PO Q6H PRN PRN Reason: mild anxiety Last Admin: 11/08/24 01:23 Dose: 25 mg [place] Carbonate ([place] Carbonate 300 Mg Tablet) 150 mg PO BID [facility] Loperamide HCl (Loperamide Hcl 2 Mg Capsule) 2 mg PO Q4H PRN PRN Reason: diarrhea Lorazepam (Lorazepam 1 Mg Tablet) 1 mg PO TID [facility] Last Admin: 11/08/24 15:24 Dose: 1 mg Magnesium Hydroxide (Milk Of Magnesia 30 Ml Oral.Susp) 30 ml PO DAILY PRN PRN Reason: Constipation Memantine (Memantine Hcl 10 Mg Tablet) 10 mg PO BID [facility] Methimazole (Methimazole 5 Mg Tablet) 5 mg PO DAILY [facility] Last Admin: 11/08/24 08:10 Dose: 5 mg Nicotine Polacrilex (Nicotine Polacrilex 2 Mg Gum) 4 mg BUCCAL Q2H PRN PRN Reason: Nicotine Cravings Olanzapine (Olanzapine 2.5 Mg Tablet) 2.5 mg PO TID PRN PRN Reason: agitation Last Admin: 11/03/24 22:58 Dose: 2.5 mg Pyridoxine HCl (Pyridoxine Hcl (Vitamin B6) 50 Mg Tablet) 50 mg PO DAILY [facility] Last Admin: 11/08/24 08:10 Dose: 50 mg Quetiapine Fumarate (Quetiapine Fumarate 25 Mg Tablet) 75 mg PO BEDTIME [facility] Last Admin: 11/07/24 21:51 Dose: 75 mg Senna (Sennosides 8.6 Mg Tablet) 17.2 mg PO BEDTIME PRN PRN Reason: Constipation Trazodone HCl (Trazodone Hcl 50 Mg Tablet) 50 mg PO BEDTIME PRN PRN Reason: Insomnia Allergies Allergies Allergy/AdvReac Type Severity Reaction Status Date / Time artichoke Allergy Swelling Verified 10/27/24 23:58 perphenazine [From Trilafon] Allergy Anaphylaxis Verified 10/27/24 23:55 tree nut Allergy Unknown Verified 10/27/24 23:58 walnut Allergy Unknown Verified 10/27/24 23:58 Assessment & Plan Assessment & Plan (1) Frontotemporal dementia with behavioral disturbance: Status: Acute Code(s): G31.09 - Other frontotemporal neurocognitive disorder; F02.818 - Dementia in other diseases classified elsewhere, unspecified severity, with other behavioral disturbance (2) Bipolar disorder: Status: Acute Code(s): F31.9 - Bipolar disorder, unspecified (3) Goiter with hyperthyroidism: Status: Acute Code(s): E05.00 - Thyrotoxicosis with diffuse goiter without thyrotoxic crisis or storm Assessment and Plan: TSH-2.32 On tapazole 5mg po daily (4) CHF (congestive heart failure): Status: Acute Code(s): I50.9 - Heart failure, unspecified (5) Asthma: Status: Acute Code(s): J45.909 - Unspecified asthma, uncomplicated Plan Mrs. Duarte is a 59 year-old woman with hx of frontotemporal dementia, Bipolar Disorder who was brought to [facility] ED due to presenting with s/s of catatonia including staring, palilalia, negativism, purposeless behaviors which apparently is similar presentation as last year when she was diagnosed with Frontotemporal dementia. Frontotemporal Dementia does have higher risk of catatonia like symptoms and not uncommon presentation. On the unit, she received ativan 1mg with good effect improving s/s of verbigeration, catatonia. Will obtain records from [facility] and OP providers. Discussed with patient and patient's HCP Eliud, increasing ativan 1mg po TID. Will continue seroquel 50mg po qhs. PLAN 10/29 continue ativan 1mg po TID, currently on seroquel, somewhat expansive mood,visible taking medications. 10/30 continues on and off with verbigeration, along with confusion or disorganized thinking/logic when this happens. will lower ativan 0.5mg po TID- will request records tomorrow from [facility]. 10/31 continue tx. Left VM to her psychiatric provider. 11/01 continue tx. pending records from [facility] 11/02 increase seroquel to 75mg po qhs. 11/03: c/o diarrhea, imodium PRN ordered. otherwise continue current mgmt. modestly interacting. palilalia. 11/04 continue tx. may try increase in ativan for atypical features that may account for catatonia- including palilalia, purposeless behaviors such as standing up going in and out a room without clear purpose. 11/05/2024 Continue plan of care 11/06/2024 Continue plan of care 11/07 continue tx. awaiting records from [facility]. 11/08 increase namenda to 10mg po BID. /dc trileptal. start low dose lithium 150mg po BID. Reason for continued inpatient stay Substantial Risk for: inability to function Time Spent With Patient Time: Total time managing care of this patient today ____ minutes.
[2024-11-08 19:51] VITALS: BP 139/80; PULSE 87; TEMP 36.3; O2SAT 98
[2024-11-08] MEDS: Memantine HCl 10 MG TABLET PO (20:14)
[2024-11-08] MEDS: QUEtiapine Fumarate 25 MG TABLET 75 MG PO (20:14)
[2024-11-08] MEDS: Lithium Carbonate 300 MG TABLET 150 MG PO (20:14)
[2024-11-08] MEDS: Atorvastatin Calcium 20 MG TABLET PO (20:14)
[2024-11-09] MEDS: OLANZapine 2.5 MG TABLET PO (00:30)
[2024-11-09] MEDS: hydrOXYzine HCL 25 MG TABLET PO (00:30)
[2024-11-09] MEDS: traZODone HCL 50 MG TABLET PO ×2 (00:31→20:35)
[2024-11-09 08:00] VITALS: BP 134/73; PULSE 92; RESP 18; TEMP 36.5; O2SAT 96
[2024-11-09] MEDS: Memantine HCl 10 MG TABLET PO ×2 (08:02→20:35)
[2024-11-09] MEDS: Lithium Carbonate 300 MG TABLET 150 MG PO ×2 (08:02→20:35)
[2024-11-09] MEDS: LORazepam 1 MG TABLET PO ×3 (08:02→20:35)
[2024-11-09] MEDS: Apixaban 5 MG TABLET PO ×2 (08:02→20:35)
[2024-11-09] MEDS: Folic Acid 1 MG TABLET 5 MG PO (08:02)
[2024-11-09] MEDS: methIMAzole 5 MG TABLET PO (08:03)
[2024-11-09] MEDS: Pyridoxine HCl (Vitamin B6) 50 MG TABLET PO (08:03)
[2024-11-09 20:00] VITALS: BP 126/60; PULSE 102; RESP 16; TEMP 36.6; O2SAT 94
[2024-11-09] MEDS: QUEtiapine Fumarate 25 MG TABLET 75 MG PO (20:35)
[2024-11-09] MEDS: Atorvastatin Calcium 20 MG TABLET PO (20:35)
--- NOTE | 2024-11-09 22:09 | HO.PSYCHPN ---
Subjective Subjective Date of Service: 11/09/24 Reason For Visit: Dementia W/Behavioral Disturbances Subjective Notes: Conditional Voluntary Interim History: Pt slept through the night. She attends groups, not interacting much with peers. She continues to have palilalia, thought process more sensical. blank stare continues. No behavioral concerns. She is taking medications as prescribed. Review of Systems Review of Systems Yes Unobtainable due to mental status Mental Status Exam Mental Status Exam Narrative: Appearance: wearing casual clothing, Behavior:seemingly cooperative Psychomotor: no agitation or retardation noted Speech: clear, monotone, spontaneous TP: Mostly linear TC:doing well here Mood: good Affect: constricted affect, but congruent SI: denies HI: denies VH/AH: no overt signs Delusions: no overt delusional content Insight/judgment: impaired x 2. Memory/cog: alert know she is in a hospital Diagnostics Vital Signs (24Hr): Vital Signs - 24 hr 11/09/24 08:00 Temperature 97.7 F Pulse Rate 92 Respiratory Rate 18 Blood Pressure 134/73 Pulse Oximetry 96 Oxygen Delivery Method Room Air BMI result Body Mass Index 41.2 Labs 10/28/24 08:44 Medications Medications Current Medications Acetaminophen (Acetaminophen 325 Mg Tablet) 650 mg PO Q6H PRN PRN Reason: Headache/Pain, Scale 1-10 Last Admin: 10/28/24 13:48 Dose: 650 mg Al Hydroxide/Mg Hydroxide (Magnesium Hydrox/Alum Hydrox 30 Ml Oral.Susp) 30 ml PO Q6H PRN PRN Reason: Heartburn/Nausea Apixaban (Apixaban 5 Mg Tablet) 5 mg PO BID [facility] Last Admin: 11/09/24 20:35 Dose: 5 mg Atorvastatin Calcium (Atorvastatin Calcium 20 Mg Tablet) 20 mg PO BEDTIME [facility] Last Admin: 11/09/24 20:35 Dose: 20 mg Ergocalciferol (Ergocalciferol (Vitamin D2) 1,250 Mcg Capsule) 1,250 mcg PO Fr@0900 [facility] Last Admin: 11/04/24 08:23 Dose: 1,250 mcg Folic Acid (Folic Acid 1 Mg Tablet) 5 mg PO DAILY [facility] Last Admin: 11/09/24 08:02 Dose: 5 mg Hydroxyzine HCl (Hydroxyzine Hcl 25 Mg Tablet) 25 mg PO Q6H PRN PRN Reason: mild anxiety Last Admin: 11/09/24 00:30 Dose: 25 mg [place] Carbonate ([place] Carbonate 300 Mg Tablet) 150 mg PO BID [facility] Last Admin: 11/09/24 20:35 Dose: 150 mg Loperamide HCl (Loperamide Hcl 2 Mg Capsule) 2 mg PO Q4H PRN PRN Reason: diarrhea Lorazepam (Lorazepam 1 Mg Tablet) 1 mg PO TID [facility] Last Admin: 11/09/24 20:35 Dose: 1 mg Magnesium Hydroxide (Milk Of Magnesia 30 Ml Oral.Susp) 30 ml PO DAILY PRN PRN Reason: Constipation Memantine (Memantine Hcl 10 Mg Tablet) 10 mg PO BID [facility] Last Admin: 11/09/24 20:35 Dose: 10 mg Methimazole (Methimazole 5 Mg Tablet) 5 mg PO DAILY [facility] Last Admin: 11/09/24 08:03 Dose: 5 mg Nicotine Polacrilex (Nicotine Polacrilex 2 Mg Gum) 4 mg BUCCAL Q2H PRN PRN Reason: Nicotine Cravings Olanzapine (Olanzapine 2.5 Mg Tablet) 2.5 mg PO TID PRN PRN Reason: agitation Last Admin: 11/09/24 00:30 Dose: 2.5 mg Pyridoxine HCl (Pyridoxine Hcl (Vitamin B6) 50 Mg Tablet) 50 mg PO DAILY [facility] Last Admin: 11/09/24 08:03 Dose: 50 mg Quetiapine Fumarate (Quetiapine Fumarate 25 Mg Tablet) 75 mg PO BEDTIME [facility] Last Admin: 11/09/24 20:35 Dose: 75 mg Senna (Sennosides 8.6 Mg Tablet) 17.2 mg PO BEDTIME PRN PRN Reason: Constipation Trazodone HCl (Trazodone Hcl 50 Mg Tablet) 50 mg PO BEDTIME PRN PRN Reason: Insomnia Last Admin: 11/09/24 20:35 Dose: 50 mg Allergies Allergies Allergy/AdvReac Type Severity Reaction Status Date / Time artichoke Allergy Swelling Verified 10/27/24 23:58 perphenazine [From Trilafon] Allergy Anaphylaxis Verified 10/27/24 23:55 tree nut Allergy Unknown Verified 10/27/24 23:58 walnut Allergy Unknown Verified 10/27/24 23:58 Assessment & Plan Assessment & Plan (1) Frontotemporal dementia with behavioral disturbance: Status: Acute Code(s): G31.09 - Other frontotemporal neurocognitive disorder; F02.818 - Dementia in other diseases classified elsewhere, unspecified severity, with other behavioral disturbance (2) Bipolar disorder: Status: Acute Code(s): F31.9 - Bipolar disorder, unspecified (3) Goiter with hyperthyroidism: Status: Acute Code(s): E05.00 - Thyrotoxicosis with diffuse goiter without thyrotoxic crisis or storm Assessment and Plan: TSH-2.32 On tapazole 5mg po daily (4) CHF (congestive heart failure): Status: Acute Code(s): I50.9 - Heart failure, unspecified (5) Asthma: Status: Acute Code(s): J45.909 - Unspecified asthma, uncomplicated Plan Mrs. Duarte is a 59 year-old woman with hx of frontotemporal dementia, Bipolar Disorder who was brought to [facility] ED due to presenting with s/s of catatonia including staring, palilalia, negativism, purposeless behaviors which apparently is similar presentation as last year when she was diagnosed with Frontotemporal dementia. Frontotemporal Dementia does have higher risk of catatonia like symptoms and not uncommon presentation. On the unit, she received ativan 1mg with good effect improving s/s of verbigeration, catatonia. Will obtain records from [facility] and OP providers. Discussed with patient and patient's HCP Eliud, increasing ativan 1mg po TID. Will continue seroquel 50mg po qhs. PLAN 10/29 continue ativan 1mg po TID, currently on seroquel, somewhat expansive mood,visible taking medications. 10/30 continues on and off with verbigeration, along with confusion or disorganized thinking/logic when this happens. will lower ativan 0.5mg po TID- will request records tomorrow from [facility]. 10/31 continue tx. Left VM to her psychiatric provider. 11/01 continue tx. pending records from [facility] 11/02 increase seroquel to 75mg po qhs. 11/03: c/o diarrhea, imodium PRN ordered. otherwise continue current mgmt. modestly interacting. palilalia. 11/04 continue tx. may try increase in ativan for atypical features that may account for catatonia- including palilalia, purposeless behaviors such as standing up going in and out a room without clear purpose. 11/05/2024 Continue plan of care 11/06/2024 Continue plan of care 11/07 continue tx. awaiting records from [facility]. 11/08 d/c trileptal. Start lithium 150mg po BID. Increase namenda 10mg po BID. Reason for continued inpatient stay Substantial Risk for: inability to function Time Spent With Patient Time: Total time managing care of this patient today ____ minutes.
[2024-11-10] MEDS: hydrOXYzine HCL 25 MG TABLET PO (00:30)
[2024-11-10] MEDS: traZODone HCL 50 MG TABLET PO ×2 (00:32→19:58)
[2024-11-10 08:00] VITALS: BP 129/63; PULSE 105; RESP 16; TEMP 36.8; O2SAT 95
[2024-11-10] MEDS: Lithium Carbonate 300 MG TABLET 150 MG PO ×2 (08:45→19:56)
[2024-11-10] MEDS: Folic Acid 1 MG TABLET 5 MG PO (08:46)
[2024-11-10] MEDS: Pyridoxine HCl (Vitamin B6) 50 MG TABLET PO (08:46)
[2024-11-10] MEDS: Apixaban 5 MG TABLET PO ×2 (08:47→19:58)
[2024-11-10] MEDS: Memantine HCl 10 MG TABLET PO ×2 (08:47→19:56)
[2024-11-10] MEDS: methIMAzole 5 MG TABLET PO (08:47)
[2024-11-10] MEDS: LORazepam 1 MG TABLET PO ×3 (08:48→19:57)
[2024-11-10 09:27] VITALS: BMI 42.6
--- NOTE | 2024-11-10 10:25 | P.PNPSI_ITS ---
Subjective Subjective Date of Service: 11/10/24 Reason For Visit: Dementia W/Behavioral Disturbances Subjective Notes: Conditional Voluntary Interim History: Pt slept through the night. She attends groups, not interacting much with peers. She continues to have palilalia, thought process more sensical. blank stare continues. No behavioral concerns. She is taking medications as prescribed. Review of Systems Review of Systems Yes Unobtainable due to mental status Mental Status Exam Mental Status Exam Narrative: Appearance: wearing casual clothing, Behavior:seemingly cooperative Psychomotor: no agitation or retardation noted Speech: clear, monotone, spontaneous TP: Mostly linear TC:doing well here Mood: good Affect: constricted affect, but congruent SI: denies HI: denies VH/AH: no overt signs Delusions: no overt delusional content Insight/judgment: impaired x 2. Memory/cog: alert know she is in a hospital Diagnostics Vital Signs (24Hr): Vital Signs - 24 hr 11/09/24 20:00 11/10/24 08:00 Temperature 97.9 F 98.2 F Pulse Rate 102 H 105 H Respiratory Rate 16 16 Blood Pressure 126/60 129/63 Pulse Oximetry 94 95 Oxygen Delivery Method Room Air Room Air BMI result Body Mass Index 42.6 Labs 10/28/24 08:44 Medications Medications Current Medications Acetaminophen (Acetaminophen 325 Mg Tablet) 650 mg PO Q6H PRN PRN Reason: Headache/Pain, Scale 1-10 Last Admin: 10/28/24 13:48 Dose: 650 mg Al Hydroxide/Mg Hydroxide (Magnesium Hydrox/Alum Hydrox 30 Ml Oral.Susp) 30 ml PO Q6H PRN PRN Reason: Heartburn/Nausea Apixaban (Apixaban 5 Mg Tablet) 5 mg PO BID [facility] Last Admin: 11/10/24 08:47 Dose: 5 mg Atorvastatin Calcium (Atorvastatin Calcium 20 Mg Tablet) 20 mg PO BEDTIME [facility] Last Admin: 11/09/24 20:35 Dose: 20 mg Ergocalciferol (Ergocalciferol (Vitamin D2) 1,250 Mcg Capsule) 1,250 mcg PO Fr@0900 [facility] Last Admin: 11/04/24 08:23 Dose: 1,250 mcg Folic Acid (Folic Acid 1 Mg Tablet) 5 mg PO DAILY [facility] Last Admin: 11/10/24 08:46 Dose: 5 mg Hydroxyzine HCl (Hydroxyzine Hcl 25 Mg Tablet) 25 mg PO Q6H PRN PRN Reason: mild anxiety Last Admin: 11/10/24 00:30 Dose: 25 mg [place] Carbonate ([place] Carbonate 300 Mg Tablet) 150 mg PO BID [facility] Last Admin: 11/10/24 08:45 Dose: 150 mg Loperamide HCl (Loperamide Hcl 2 Mg Capsule) 2 mg PO Q4H PRN PRN Reason: diarrhea Lorazepam (Lorazepam 1 Mg Tablet) 1 mg PO TID [facility] Last Admin: 11/10/24 08:48 Dose: 1 mg Magnesium Hydroxide (Milk Of Magnesia 30 Ml Oral.Susp) 30 ml PO DAILY PRN PRN Reason: Constipation Memantine (Memantine Hcl 10 Mg Tablet) 10 mg PO BID [facility] Last Admin: 11/10/24 08:47 Dose: 10 mg Methimazole (Methimazole 5 Mg Tablet) 5 mg PO DAILY [facility] Last Admin: 11/10/24 08:47 Dose: 5 mg Nicotine Polacrilex (Nicotine Polacrilex 2 Mg Gum) 4 mg [place]CCAL Q2H PRN PRN Reason: Nicotine Cravings Olanzapine (Olanzapine 2.5 Mg Tablet) 2.5 mg PO TID PRN PRN Reason: agitation Last Admin: 11/09/24 00:30 Dose: 2.5 mg Pyridoxine HCl (Pyridoxine Hcl (Vitamin B6) 50 Mg Tablet) 50 mg PO DAILY [facility] Last Admin: 11/10/24 08:46 Dose: 50 mg Quetiapine Fumarate (Quetiapine Fumarate 25 Mg Tablet) 75 mg PO BEDTIME [facility] Last Admin: 11/09/24 20:35 Dose: 75 mg Senna (Sennosides 8.6 Mg Tablet) 17.2 mg PO BEDTIME PRN PRN Reason: Constipation Trazodone HCl (Trazodone Hcl 50 Mg Tablet) 50 mg PO BEDTIME PRN PRN Reason: Insomnia Last Admin: 11/10/24 00:32 Dose: 50 mg Allergies Allergies Allergy/AdvReac Type Severity Reaction Status Date / Time artichoke Allergy Swelling Verified 10/27/24 23:58 perphenazine [From Trilafon] Allergy Anaphylaxis Verified 10/27/24 23:55 tree nut Allergy Unknown Verified 10/27/24 23:58 walnut Allergy Unknown Verified 10/27/24 23:58 Assessment & Plan Assessment & Plan (1) Frontotemporal dementia with behavioral disturbance: Status: Acute Code(s): G31.09 - Other frontotemporal neurocognitive disorder; F02.818 - Dementia in other diseases classified elsewhere, unspecified severity, with other behavioral disturbance (2) Bipolar disorder: Status: Acute Code(s): F31.9 - Bipolar disorder, unspecified (3) Goiter with hyperthyroidism: Status: Acute Code(s): E05.00 - Thyrotoxicosis with diffuse goiter without thyrotoxic crisis or storm Assessment and Plan: TSH-2.32 On tapazole 5mg po daily (4) CHF (congestive heart failure): Status: Acute Code(s): I50.9 - Heart failure, unspecified (5) Asthma: Status: Acute Code(s): J45.909 - Unspecified asthma, uncomplicated Plan Mrs. Duarte is a 59 year-old woman with hx of frontotemporal dementia, Bipolar Disorder who was brought to [facility] ED due to presenting with s/s of catatonia including staring, palilalia, negativism, purposeless behaviors which apparently is similar presentation as last year when she was diagnosed with Frontotemporal dementia. Frontotemporal Dementia does have higher risk of catatonia like symptoms and not uncommon presentation. On the unit, she received ativan 1mg with good effect improving s/s of verbigeration, catatonia. Will obtain records from [facility] and OP providers. Discussed with patient and patient's HCP Eliud, increasing ativan 1mg po TID. Will continue seroquel 50mg po qhs. PLAN 10/29 continue ativan 1mg po TID, currently on seroquel, somewhat expansive mood,visible taking medications. 10/30 continues on and off with verbigeration, along with confusion or disorganized thinking/logic when this happens. will lower ativan 0.5mg po TID- will request records tomorrow from [facility] general. 10/31 continue tx. Left VM to her psychiatric provider. 11/01 continue tx. pending records from [facility] 11/02 increase seroquel to 75mg po qhs. 11/03: c/o diarrhea, imodium PRN ordered. otherwise continue current mgmt. modestly interacting. palilalia. 11/04 continue tx. may try increase in ativan for atypical features that may account for catatonia- including palilalia, purposeless behaviors such as standing up going in and out a room without clear purpose. 11/05/2024 Continue plan of care 11/06/2024 Continue plan of care 11/07 continue tx. awaiting records from [facility]. 11/08 d/c trileptal. Start lithium 150mg po BID. Increase namenda 10mg po BID. 11/09 continue tx. 11/10 continue tx. Reason for continued inpatient stay Substantial Risk for: inability to function Time Spent With Patient Time: Total time managing care of this patient today ____ minutes.
[2024-11-10 19:54] VITALS: BP 133/80; PULSE 95; RESP 16; TEMP 36.9; O2SAT 95
[2024-11-10] MEDS: QUEtiapine Fumarate 25 MG TABLET 75 MG PO (19:57)
[2024-11-10] MEDS: Atorvastatin Calcium 20 MG TABLET PO (19:58)
[2024-11-11] MEDS: traZODone HCL 50 MG TABLET PO (00:53)
[2024-11-11] MEDS: hydrOXYzine HCL 25 MG TABLET PO (00:54)
[2024-11-11 08:00] VITALS: BP 138/65; PULSE 94; RESP 18; TEMP 35.8; O2SAT 96
[2024-11-11] MEDS: Memantine HCl 10 MG TABLET PO ×2 (08:36→20:28)
[2024-11-11] MEDS: Folic Acid 1 MG TABLET 5 MG PO (08:36)
[2024-11-11] MEDS: LORazepam 1 MG TABLET PO ×3 (08:36→20:29)
[2024-11-11] MEDS: Apixaban 5 MG TABLET PO ×2 (08:36→20:28)
[2024-11-11] MEDS: Lithium Carbonate 300 MG TABLET 150 MG PO ×2 (08:36→20:29)
[2024-11-11] MEDS: methIMAzole 5 MG TABLET PO (08:36)
[2024-11-11] MEDS: Pyridoxine HCl (Vitamin B6) 50 MG TABLET PO (08:36)
[2024-11-11] MEDS: Ergocalciferol (Vitamin D2) 1,250 MCG CAPSULE 1250 MCG PO (10:10)
--- NOTE | 2024-11-11 16:27 | HO.PSYCHPN ---
Subjective Subjective Date of Service: 11/11/24 Reason For Visit: Dementia W/Behavioral Disturbances Interim History: Pt slept through the night. She attends groups, not interacting much with peers. She continues to have palilalia, thought process more sensical. blank stare continues. No behavioral concerns. She is taking medications as prescribed. Review of Systems Review of Systems Yes Unobtainable due to mental status Mental Status Exam Mental Status Exam Narrative: Appearance: wearing casual clothing, Behavior:seemingly cooperative Psychomotor: no agitation or retardation noted Speech: clear, monotone, spontaneous TP: Mostly linear TC:doing well here Mood: good Affect: constricted affect, but congruent SI: denies HI: denies VH/AH: no overt signs Delusions: no overt delusional content Insight/judgment: impaired x 2. Memory/cog: alert know she is in a hospital Diagnostics Vital Signs (24Hr): Vital Signs - 24 hr 11/10/24 19:54 11/11/24 08:00 Temperature 98.4 F 96.5 F L Pulse Rate 95 94 Respiratory Rate 16 18 Blood Pressure 133/80 138/65 Pulse Oximetry 95 96 Oxygen Delivery Method Room Air Room Air BMI result Body Mass Index 42.6 Labs 10/28/24 08:44 Medications Medications Current Medications Acetaminophen (Acetaminophen 325 Mg Tablet) 650 mg PO Q6H PRN PRN Reason: Headache/Pain, Scale 1-10 Last Admin: 10/28/24 13:48 Dose: 650 mg Al Hydroxide/Mg Hydroxide (Magnesium Hydrox/Alum Hydrox 30 Ml Oral.Susp) 30 ml PO Q6H PRN PRN Reason: Heartburn/Nausea Apixaban (Apixaban 5 Mg Tablet) 5 mg PO BID [facility] Last Admin: 11/11/24 08:36 Dose: 5 mg Atorvastatin Calcium (Atorvastatin Calcium 20 Mg Tablet) 20 mg PO BEDTIME [facility] Last Admin: 11/10/24 19:58 Dose: 20 mg Ergocalciferol (Ergocalciferol (Vitamin D2) 1,250 Mcg Capsule) 1,250 mcg PO Fr@0900 [facility] Last Admin: 11/11/24 10:10 Dose: 1,250 mcg Folic Acid (Folic Acid 1 Mg Tablet) 5 mg PO DAILY [facility] Last Admin: 11/11/24 08:36 Dose: 5 mg Hydroxyzine HCl (Hydroxyzine Hcl 25 Mg Tablet) 25 mg PO Q6H PRN PRN Reason: mild anxiety Last Admin: 11/11/24 00:54 Dose: 25 mg [place] Carbonate ([place] Carbonate 300 Mg Tablet) 150 mg PO BID [facility] Last Admin: 11/11/24 08:36 Dose: 150 mg Loperamide HCl (Loperamide Hcl 2 Mg Capsule) 2 mg PO Q4H PRN PRN Reason: diarrhea Lorazepam (Lorazepam 1 Mg Tablet) 1 mg PO TID [facility] Last Admin: 11/11/24 16:25 Dose: 1 mg Magnesium Hydroxide (Milk Of Magnesia 30 Ml Oral.Susp) 30 ml PO DAILY PRN PRN Reason: Constipation Memantine (Memantine Hcl 10 Mg Tablet) 10 mg PO BID [facility] Last Admin: 11/11/24 08:36 Dose: 10 mg Methimazole (Methimazole 5 Mg Tablet) 5 mg PO DAILY [facility] Last Admin: 11/11/24 08:36 Dose: 5 mg Nicotine Polacrilex (Nicotine Polacrilex 2 Mg Gum) 4 mg BUCCAL Q2H PRN PRN Reason: Nicotine Cravings Olanzapine (Olanzapine 2.5 Mg Tablet) 2.5 mg PO TID PRN PRN Reason: agitation Last Admin: 11/09/24 00:30 Dose: 2.5 mg Pyridoxine HCl (Pyridoxine Hcl (Vitamin B6) 50 Mg Tablet) 50 mg PO DAILY [facility] Last Admin: 11/11/24 08:36 Dose: 50 mg Quetiapine Fumarate (Quetiapine Fumarate 25 Mg Tablet) 75 mg PO BEDTIME [facility] Last Admin: 11/10/24 19:57 Dose: 75 mg Senna (Sennosides 8.6 Mg Tablet) 17.2 mg PO BEDTIME PRN PRN Reason: Constipation Trazodone HCl (Trazodone Hcl 50 Mg Tablet) 50 mg PO BEDTIME PRN PRN Reason: Insomnia Last Admin: 11/11/24 00:53 Dose: 50 mg Allergies Allergies Allergy/AdvReac Type Severity Reaction Status Date / Time artichoke Allergy Swelling Verified 10/27/24 23:58 perphenazine [From Trilafon] Allergy Anaphylaxis Verified 10/27/24 23:55 tree nut Allergy Unknown Verified 10/27/24 23:58 walnut Allergy Unknown Verified 10/27/24 23:58 Assessment & Plan Assessment & Plan (1) Frontotemporal dementia with behavioral disturbance: Status: Acute Code(s): G31.09 - Other frontotemporal neurocognitive disorder; F02.818 - Dementia in other diseases classified elsewhere, unspecified severity, with other behavioral disturbance (2) Bipolar disorder: Status: Acute Code(s): F31.9 - Bipolar disorder, unspecified (3) Goiter with hyperthyroidism: Status: Acute Code(s): E05.00 - Thyrotoxicosis with diffuse goiter without thyrotoxic crisis or storm Assessment and Plan: TSH-2.32 On tapazole 5mg po daily (4) CHF (congestive heart failure): Status: Acute Code(s): I50.9 - Heart failure, unspecified (5) Asthma: Status: Acute Code(s): J45.909 - Unspecified asthma, uncomplicated Plan Mrs. Duarte is a 59 year-old woman with hx of frontotemporal dementia, Bipolar Disorder who was brought to [facility] ED due to presenting with s/s of catatonia including staring, palilalia, negativism, purposeless behaviors which apparently is similar presentation as last year when she was diagnosed with Frontotemporal dementia. Frontotemporal Dementia does have higher risk of catatonia like symptoms and not uncommon presentation. On the unit, she received ativan 1mg with good effect improving s/s of verbigeration, catatonia. Will obtain records from [facility] and OP providers. Discussed with patient and patient's HCP Eliud, increasing ativan 1mg po TID. Will continue seroquel 50mg po qhs. PLAN 10/29 continue ativan 1mg po TID, currently on seroquel, somewhat expansive mood,visible taking medications. 10/30 continues on and off with verbigeration, along with confusion or disorganized thinking/logic when this happens. will lower ativan 0.5mg po TID- will request records tomorrow from [facility]. 10/31 continue tx. Left VM to her psychiatric provider. 11/01 continue tx. pending records from [facility] 11/02 increase seroquel to 75mg po qhs. 11/03: c/o diarrhea, imodium PRN ordered. otherwise continue current mgmt. modestly interacting. palilalia. 11/04 continue tx. may try increase in ativan for atypical features that may account for catatonia- including palilalia, purposeless behaviors such as standing up going in and out a room without clear purpose. 11/05/2024 Continue plan of care 11/06/2024 Continue plan of care 11/07 continue tx. awaiting records from [facility]. 11/08 d/c trileptal. Start lithium 150mg po BID. Increase namenda 10mg po BID. 11/09 continue tx. 11/10 continue tx. 11/11 continue tx. Reason for continued inpatient stay Substantial Risk for: inability to function Time Spent With Patient Time: Total time managing care of this patient today ____ minutes.
[2024-11-11 20:00] VITALS: BP 129/64; PULSE 100; RESP 18; TEMP 36.2; O2SAT 96
[2024-11-11] MEDS: Atorvastatin Calcium 20 MG TABLET PO (20:28)
[2024-11-11] MEDS: QUEtiapine Fumarate 25 MG TABLET 75 MG PO (20:28)
[2024-11-12] MEDS: hydrOXYzine HCL 25 MG TABLET PO (03:10)
[2024-11-12] MEDS: traZODone HCL 50 MG TABLET PO (03:10)
[2024-11-12 07:45] VITALS: BP 121/72; PULSE 98; RESP 18; TEMP 36.3; O2SAT 94
[2024-11-12] MEDS: Folic Acid 1 MG TABLET 5 MG PO (08:44)
[2024-11-12] MEDS: methIMAzole 5 MG TABLET PO (08:44)
[2024-11-12] MEDS: Apixaban 5 MG TABLET PO ×2 (08:44→20:21)
[2024-11-12] MEDS: Pyridoxine HCl (Vitamin B6) 50 MG TABLET PO (08:44)
[2024-11-12] MEDS: LORazepam 1 MG TABLET PO ×3 (08:44→20:21)
[2024-11-12] MEDS: Memantine HCl 10 MG TABLET PO ×2 (08:44→20:21)
[2024-11-12] MEDS: Lithium Carbonate 300 MG TABLET 150 MG PO ×2 (08:44→20:21)
--- NOTE | 2024-11-12 08:57 | P.PNPSI_ITS ---
Subjective Subjective Date of Service: 11/12/24 Reason For Visit: Dementia W/Behavioral Disturbances Interim History: Patient slept through the night. She is eating well. Attends groups. Visible on the unit. She continues to have palilalia. No behavioral concerns. Blank stare continues. She is taking medications as prescribed. Review of Systems Review of Systems Yes Unobtainable due to mental status Mental Status Exam Mental Status Exam Narrative: Appearance: wearing casual clothing, Behavior:seemingly cooperative Psychomotor: no agitation or retardation noted Speech: clear, monotone, spontaneous TP: Mostly linear TC:doing well here Mood: good Affect: constricted affect, but congruent SI: denies HI: denies VH/AH: no overt signs Delusions: no overt delusional content Insight/judgment: impaired x 2. Memory/cog: alert know she is in a hospital Diagnostics Vital Signs (24Hr): Vital Signs - 24 hr 11/11/24 20:00 11/12/24 07:45 Temperature 97.1 F 97.3 F Pulse Rate 100 98 Respiratory Rate 18 18 Blood Pressure 129/64 121/72 Pulse Oximetry 96 94 Oxygen Delivery Method Room Air Room Air BMI result Body Mass Index 42.6 Labs 11/12/24 15:23 Medications Medications Current Medications Acetaminophen (Acetaminophen 325 Mg Tablet) 650 mg PO Q6H PRN PRN Reason: Headache/Pain, Scale 1-10 Last Admin: 10/28/24 13:48 Dose: 650 mg Al Hydroxide/Mg Hydroxide (Magnesium Hydrox/Alum Hydrox 30 Ml Oral.Susp) 30 ml PO Q6H PRN PRN Reason: Heartburn/Nausea Apixaban (Apixaban 5 Mg Tablet) 5 mg PO BID [facility] Last Admin: 11/12/24 08:44 Dose: 5 mg Atorvastatin Calcium (Atorvastatin Calcium 20 Mg Tablet) 20 mg PO BEDTIME [facility] Last Admin: 11/11/24 20:28 Dose: 20 mg Ergocalciferol (Ergocalciferol (Vitamin D2) 1,250 Mcg Capsule) 1,250 mcg PO Fr@0900 [facility] Last Admin: 11/11/24 10:10 Dose: 1,250 mcg Folic Acid (Folic Acid 1 Mg Tablet) 5 mg PO DAILY [facility] Last Admin: 11/12/24 08:44 Dose: 5 mg Hydroxyzine HCl (Hydroxyzine Hcl 25 Mg Tablet) 25 mg PO Q6H PRN PRN Reason: mild anxiety Last Admin: 11/12/24 03:10 Dose: 25 mg [place] Carbonate ([place] Carbonate 300 Mg Tablet) 150 mg PO BID [facility] Last Admin: 11/12/24 08:44 Dose: 150 mg Loperamide HCl (Loperamide Hcl 2 Mg Capsule) 2 mg PO Q4H PRN PRN Reason: diarrhea Lorazepam (Lorazepam 1 Mg Tablet) 1 mg PO TID [facility] Last Admin: 11/12/24 08:44 Dose: 1 mg Magnesium Hydroxide (Milk Of Magnesia 30 Ml Oral.Susp) 30 ml PO DAILY PRN PRN Reason: Constipation Memantine (Memantine Hcl 10 Mg Tablet) 10 mg PO BID [facility] Last Admin: 11/12/24 08:44 Dose: 10 mg Methimazole (Methimazole 5 Mg Tablet) 5 mg PO DAILY [facility] Last Admin: 11/12/24 08:44 Dose: 5 mg Nicotine Polacrilex (Nicotine Polacrilex 2 Mg Gum) 4 mg BUCCAL Q2H PRN PRN Reason: Nicotine Cravings Olanzapine (Olanzapine 2.5 Mg Tablet) 2.5 mg PO TID PRN PRN Reason: agitation Last Admin: 11/09/24 00:30 Dose: 2.5 mg Pyridoxine HCl (Pyridoxine Hcl (Vitamin B6) 50 Mg Tablet) 50 mg PO DAILY [facility] Last Admin: 11/12/24 08:44 Dose: 50 mg Quetiapine Fumarate (Quetiapine Fumarate 25 Mg Tablet) 75 mg PO BEDTIME [facility] Last Admin: 11/11/24 20:28 Dose: 75 mg Senna (Sennosides 8.6 Mg Tablet) 17.2 mg PO BEDTIME PRN PRN Reason: Constipation Trazodone HCl (Trazodone Hcl 50 Mg Tablet) 50 mg PO BEDTIME PRN PRN Reason: Insomnia Last Admin: 11/12/24 03:10 Dose: 50 mg Allergies Allergies Allergy/AdvReac Type Severity Reaction Status Date / Time artichoke Allergy Swelling Verified 10/27/24 23:58 perphenazine [From Trilafon] Allergy Anaphylaxis Verified 10/27/24 23:55 tree nut Allergy Unknown Verified 10/27/24 23:58 walnut Allergy Unknown Verified 10/27/24 23:58 Assessment & Plan Assessment & Plan (1) Frontotemporal dementia with behavioral disturbance: Status: Acute Code(s): G31.09 - Other frontotemporal neurocognitive disorder; F02.818 - Dementia in other diseases classified elsewhere, unspecified severity, with other behavioral disturbance (2) Bipolar disorder: Status: Acute Code(s): F31.9 - Bipolar disorder, unspecified (3) Goiter with hyperthyroidism: Status: Acute Code(s): E05.00 - Thyrotoxicosis with diffuse goiter without thyrotoxic crisis or storm Assessment and Plan: TSH-2.32 On tapazole 5mg po daily (4) CHF (congestive heart failure): Status: Acute Code(s): I50.9 - Heart failure, unspecified (5) Asthma: Status: Acute Code(s): J45.909 - Unspecified asthma, uncomplicated Plan Mrs. Duarte is a 59 year-old woman with hx of frontotemporal dementia, Bipolar Disorder who was brought to [facility] ED due to presenting with s/s of catatonia including staring, palilalia, negativism, purposeless behaviors which apparently is similar presentation as last year when she was diagnosed with Frontotemporal dementia. Frontotemporal Dementia does have higher risk of catatonia like symptoms and not uncommon presentation. On the unit, she received ativan 1mg with good effect improving s/s of verbigeration, catatonia. Will obtain records from [facility] and OP providers. Discussed with patient and patient's HCP Eliud, increasing ativan 1mg po TID. Will continue seroquel 50mg po qhs. PLAN 10/29 continue ativan 1mg po TID, currently on seroquel, somewhat expansive mood,visible taking medications. 10/30 continues on and off with verbigeration, along with confusion or disorganized thinking/logic when this happens. will lower ativan 0.5mg po TID- will request records tomorrow from [facility]. 10/31 continue tx. Left VM to her psychiatric provider. 11/01 continue tx. pending records from [facility] 11/02 increase seroquel to 75mg po qhs. 11/03: c/o diarrhea, imodium PRN ordered. otherwise continue current mgmt. modestly interacting. palilalia. 11/04 continue tx. may try increase in ativan for atypical features that may account for catatonia- including palilalia, purposeless behaviors such as standing up going in and out a room without clear purpose. 11/05/2024 Continue plan of care 11/06/2024 Continue plan of care 11/07 continue tx. awaiting records from [facility]. 11/08 d/c trileptal. Start lithium 150mg po BID. Increase namenda 10mg po BID. 11/09 continue tx. 11/10 continue tx. 11/11 continue tx. 3.22: Continue current management and treatment plan. Reason for continued inpatient stay Substantial Risk for: inability to function, rapid decompensation and med/psych decompensation Time Spent With Patient Time: Total time managing care of this patient today ____ minutes.
--- NOTE | 2024-11-12 13:39 | PC.NURSE ---
Called lab several times for morning lab draw and no one answered. Asked Dr. Hung to reorder labs so lab would come to unit and Dr. Jones. Waiting on new lab order for CMP.
[2024-11-12 16:54] LABS: Alanine Aminotransferase 42 U/L (0-31); Anion Gap 17 (12-20); Aspartate Amino Transferase 31 U/L (5-31); Bilirubin Total 0.3 mg/dL (0.0-1.0); Blood Urea Nitrogen 20 mg/dL (9-16); Carbon Dioxide 22 mmol/L (22-29); Chloride 108 mmol/L (96-108); Estimated Glomerular Filt Rate 60; Glucose Random 118 mg/dL (60-115); Potassium 4.1 mmol/L (3.3-5.1); Sodium 143 mmol/L (135-145); Total Protein 7.3 g/dL (6.5-8.0)
[2024-11-12 16:57] LABS: Alkaline Phosphatase 63 U/L (39-117)
[2024-11-12 20:00] VITALS: BP 123/69; PULSE 85; RESP 18; TEMP 36.6; O2SAT 95
[2024-11-12] MEDS: QUEtiapine Fumarate 25 MG TABLET 75 MG PO (20:21)
[2024-11-12] MEDS: Atorvastatin Calcium 20 MG TABLET PO (20:21)
[2024-11-13 08:23] VITALS: BP 121/62; PULSE 90; RESP 18; TEMP 36.9; O2SAT 95
[2024-11-13] MEDS: Folic Acid 1 MG TABLET 5 MG PO (08:55)
[2024-11-13] MEDS: Apixaban 5 MG TABLET PO ×2 (08:56→20:41)
[2024-11-13] MEDS: methIMAzole 5 MG TABLET PO (08:56)
[2024-11-13] MEDS: LORazepam 1 MG TABLET PO ×3 (08:56→21:08)
[2024-11-13] MEDS: Memantine HCl 10 MG TABLET PO ×2 (08:56→20:43)
[2024-11-13] MEDS: Pyridoxine HCl (Vitamin B6) 50 MG TABLET PO (08:57)
[2024-11-13] MEDS: Lithium Carbonate 300 MG TABLET 150 MG PO ×2 (08:57→20:41)
--- NOTE | 2024-11-13 12:07 | HO.PSYCHPN ---
Subjective Subjective Date of Service: 11/13/24 Reason For Visit: Dementia W/Behavioral Disturbances Interim History: Patient slept through the night. She is eating well. Attends groups. Visible on the unit. She continues to have palilalia. No behavioral concerns. Blank stare continues. She is taking medications as prescribed. Review of Systems Review of Systems Yes Unobtainable due to mental status Mental Status Exam Mental Status Exam Narrative: Appearance: wearing casual clothing, Behavior:seemingly cooperative Psychomotor: no agitation or retardation noted Speech: clear, monotone, spontaneous TP: Mostly linear TC:doing well here Mood: good Affect: constricted affect, but congruent SI: denies HI: denies VH/AH: no overt signs Delusions: no overt delusional content Insight/judgment: impaired x 2. Memory/cog: alert know she is in a hospital Diagnostics Vital Signs (24Hr): Vital Signs - 24 hr 11/12/24 20:00 11/13/24 08:23 Temperature 97.8 F 98.5 F Pulse Rate 85 90 Respiratory Rate 18 18 Blood Pressure 123/69 121/62 Pulse Oximetry 95 95 Oxygen Delivery Method Room Air Room Air BMI result Body Mass Index 42.6 Labs 11/12/24 15:23 Labs: Laboratory Results - last 48 hr 11/12/24 15:23 Sodium 143 Potassium 4.1 Chloride 108 Carbon Dioxide 22 Anion Gap 17 BUN 20 H Creatinine 0.96 Estim Creat Clear Calc 71.0 Estimated GFR 60 Random Glucose 118 H Calcium 10.0 Total Bilirubin 0.3 AST 31 ALT 42 H Alkaline Phosphatase 63 Total Protein 7.3 Albumin 4.0 Medications Medications Current Medications Acetaminophen (Acetaminophen 325 Mg Tablet) 650 mg PO Q6H PRN PRN Reason: Headache/Pain, Scale 1-10 Last Admin: 10/28/24 13:48 Dose: 650 mg Al Hydroxide/Mg Hydroxide (Magnesium Hydrox/Alum Hydrox 30 Ml Oral.Susp) 30 ml PO Q6H PRN PRN Reason: Heartburn/Nausea Apixaban (Apixaban 5 Mg Tablet) 5 mg PO BID [facility] Last Admin: 11/13/24 08:56 Dose: 5 mg Atorvastatin Calcium (Atorvastatin Calcium 20 Mg Tablet) 20 mg PO BEDTIME [facility] Last Admin: 11/12/24 20:21 Dose: 20 mg Ergocalciferol (Ergocalciferol (Vitamin D2) 1,250 Mcg Capsule) 1,250 mcg PO Fr@0900 [facility] Last Admin: 11/11/24 10:10 Dose: 1,250 mcg Folic Acid (Folic Acid 1 Mg Tablet) 5 mg PO DAILY [facility] Last Admin: 11/13/24 08:55 Dose: 5 mg Hydroxyzine HCl (Hydroxyzine Hcl 25 Mg Tablet) 25 mg PO Q6H PRN PRN Reason: mild anxiety Last Admin: 11/12/24 03:10 Dose: 25 mg [place] Carbonate ([place] Carbonate 300 Mg Tablet) 150 mg PO BID [facility] Last Admin: 11/13/24 08:57 Dose: 150 mg Loperamide HCl (Loperamide Hcl 2 Mg Capsule) 2 mg PO Q4H PRN PRN Reason: diarrhea Lorazepam (Lorazepam 1 Mg Tablet) 1 mg PO TID [facility] Last Admin: 11/13/24 08:56 Dose: 1 mg Magnesium Hydroxide (Milk Of Magnesia 30 Ml Oral.Susp) 30 ml PO DAILY PRN PRN Reason: Constipation Memantine (Memantine Hcl 10 Mg Tablet) 10 mg PO BID [facility] Last Admin: 11/13/24 08:56 Dose: 10 mg Methimazole (Methimazole 5 Mg Tablet) 5 mg PO DAILY [facility] Last Admin: 11/13/24 08:56 Dose: 5 mg Nicotine Polacrilex (Nicotine Polacrilex 2 Mg Gum) 4 mg BUCCAL Q2H PRN PRN Reason: Nicotine Cravings Olanzapine (Olanzapine 2.5 Mg Tablet) 2.5 mg PO TID PRN PRN Reason: agitation Last Admin: 11/09/24 00:30 Dose: 2.5 mg Pyridoxine HCl (Pyridoxine Hcl (Vitamin B6) 50 Mg Tablet) 50 mg PO DAILY [facility] Last Admin: 11/13/24 08:57 Dose: 50 mg Quetiapine Fumarate (Quetiapine Fumarate 25 Mg Tablet) 75 mg PO BEDTIME [facility] Last Admin: 11/12/24 20:21 Dose: 75 mg Senna (Sennosides 8.6 Mg Tablet) 17.2 mg PO BEDTIME PRN PRN Reason: Constipation Trazodone HCl (Trazodone Hcl 50 Mg Tablet) 50 mg PO BEDTIME PRN PRN Reason: Insomnia Last Admin: 11/12/24 03:10 Dose: 50 mg Allergies Allergies Allergy/AdvReac Type Severity Reaction Status Date / Time artichoke Allergy Swelling Verified 10/27/24 23:58 perphenazine [From Trilafon] Allergy Anaphylaxis Verified 10/27/24 23:55 tree nut Allergy Unknown Verified 10/27/24 23:58 walnut Allergy Unknown Verified 10/27/24 23:58 Assessment & Plan Assessment & Plan (1) Frontotemporal dementia with behavioral disturbance: Status: Acute Code(s): G31.09 - Other frontotemporal neurocognitive disorder; F02.818 - Dementia in other diseases classified elsewhere, unspecified severity, with other behavioral disturbance (2) Bipolar disorder: Status: Acute Code(s): F31.9 - Bipolar disorder, unspecified (3) Goiter with hyperthyroidism: Status: Acute Code(s): E05.00 - Thyrotoxicosis with diffuse goiter without thyrotoxic crisis or storm Assessment and Plan: TSH-2.32 On tapazole 5mg po daily (4) CHF (congestive heart failure): Status: Acute Code(s): I50.9 - Heart failure, unspecified (5) Asthma: Status: Acute Code(s): J45.909 - Unspecified asthma, uncomplicated Plan Mrs. Duarte is a 59 year-old woman with hx of frontotemporal dementia, Bipolar Disorder who was brought to [facility] ED due to presenting with s/s of catatonia including staring, palilalia, negativism, purposeless behaviors which apparently is similar presentation as last year when she was diagnosed with Frontotemporal dementia. Frontotemporal Dementia does have higher risk of catatonia like symptoms and not uncommon presentation. On the unit, she received ativan 1mg with good effect improving s/s of verbigeration, catatonia. Will obtain records from [facility] and OP providers. Discussed with patient and patient's HCP Eliud, increasing ativan 1mg po TID. Will continue seroquel 50mg po qhs. PLAN 10/29 continue ativan 1mg po TID, currently on seroquel, somewhat expansive mood,visible taking medications. 10/30 continues on and off with verbigeration, along with confusion or disorganized thinking/logic when this happens. will lower ativan 0.5mg po TID- will request records tomorrow from [facility]. 10/31 continue tx. Left VM to her psychiatric provider. 11/01 continue tx. pending records from [facility] 11/02 increase seroquel to 75mg po qhs. 11/03: c/o diarrhea, imodium PRN ordered. otherwise continue current mgmt. modestly interacting. palilalia. 11/04 continue tx. may try increase in ativan for atypical features that may account for catatonia- including palilalia, purposeless behaviors such as standing up going in and out a room without clear purpose. 11/05/2024 Continue plan of care 11/06/2024 Continue plan of care 11/07 continue tx. awaiting records from [facility]. 11/08 d/c trileptal. Start lithium 150mg po BID. Increase namenda 10mg po BID. 11/09 continue tx. 11/10 continue tx. 11/11 continue tx. 11.12: Continue current management and treatment plan. 11/13: continue current management and treatment plan. Reason for continued inpatient stay Substantial Risk for: inability to function and rapid decompensation Time Spent With Patient Time: Total time managing care of this patient today ____ minutes.
[2024-11-13 20:00] VITALS: BP 122/56; PULSE 85; TEMP 36.9; O2SAT 94
[2024-11-13] MEDS: Atorvastatin Calcium 20 MG TABLET PO (20:41)
[2024-11-13] MEDS: QUEtiapine Fumarate 25 MG TABLET 75 MG PO (20:43)
[2024-11-14] MEDS: traZODone HCL 50 MG TABLET PO ×2 (00:47→23:54)
[2024-11-14] MEDS: hydrOXYzine HCL 25 MG TABLET PO ×2 (00:47→23:54)
[2024-11-14 08:00] VITALS: BP 152/73; PULSE 106; RESP 18; O2SAT 95
[2024-11-14] MEDS: Apixaban 5 MG TABLET PO ×2 (08:29→20:18)
[2024-11-14] MEDS: Folic Acid 1 MG TABLET 5 MG PO (08:29)
[2024-11-14] MEDS: Lithium Carbonate 300 MG TABLET 150 MG PO ×2 (08:29→20:19)
[2024-11-14] MEDS: methIMAzole 5 MG TABLET PO (08:29)
[2024-11-14] MEDS: Pyridoxine HCl (Vitamin B6) 50 MG TABLET PO (08:29)
[2024-11-14] MEDS: Memantine HCl 10 MG TABLET PO (08:30)
[2024-11-14] MEDS: LORazepam 1 MG TABLET PO ×3 (08:30→20:18)
--- NOTE | 2024-11-14 09:36 | HO.PSYCHPN ---
Subjective Subjective Date of Service: 11/14/24 Reason For Visit: Dementia W/Behavioral Disturbances Subjective Notes: Conditional Voluntary Interim History: Pt slept through the night. She appears more disheveled. She continues to present with palilalia. Had visit on Thursday with but he reports her presentation was worse than before in that her conversations were more disorganized. She was repetitive and at some point irritable. left VM to to discuss lowering namenda, which was one of the medications recently increased. Will wait to decrease or stop lithium at this point. We had discussed trial of rexulti for mood. Review of Systems Review of Systems Yes Unobtainable due to mental status Mental Status Exam Mental Status Exam Narrative: Appearance: wearing casual clothing, Behavior:seemingly cooperative Psychomotor: no agitation or retardation noted Speech: clear, monotone, spontaneous TP: Mostly linear TC:doing well here Mood: good Affect: constricted affect, but congruent SI: denies HI: denies VH/AH: no overt signs Delusions: no overt delusional content Insight/judgment: impaired x 2. Memory/cog: alert know she is in a hospital Diagnostics Vital Signs (24Hr): Vital Signs - 24 hr 11/13/24 20:00 11/14/24 08:00 Temperature 98.4 F Pulse Rate 85 106 H Respiratory Rate 18 Blood Pressure 122/56 L 152/73 H Pulse Oximetry 94 95 Oxygen Delivery Method Room Air Room Air BMI result Body Mass Index 42.6 Labs 11/12/24 15:23 Labs: Laboratory Results - last 48 hr 11/12/24 15:23 Sodium 143 Potassium 4.1 Chloride 108 Carbon Dioxide 22 Anion Gap 17 BUN 20 H Creatinine 0.96 Estim Creat Clear Calc 71.0 Estimated GFR 60 Random Glucose 118 H Calcium 10.0 Total Bilirubin 0.3 AST 31 ALT 42 H Alkaline Phosphatase 63 Total Protein 7.3 Albumin 4.0 Medications Medications Current Medications Acetaminophen (Acetaminophen 325 Mg Tablet) 650 mg PO Q6H PRN PRN Reason: Headache/Pain, Scale 1-10 Last Admin: 10/28/24 13:48 Dose: 650 mg Al Hydroxide/Mg Hydroxide (Magnesium Hydrox/Alum Hydrox 30 Ml Oral.Susp) 30 ml PO Q6H PRN PRN Reason: Heartburn/Nausea Apixaban (Apixaban 5 Mg Tablet) 5 mg PO BID [facility] Last Admin: 11/14/24 08:29 Dose: 5 mg Atorvastatin Calcium (Atorvastatin Calcium 20 Mg Tablet) 20 mg PO BEDTIME [facility] Last Admin: 11/13/24 20:41 Dose: 20 mg Ergocalciferol (Ergocalciferol (Vitamin D2) 1,250 Mcg Capsule) 1,250 mcg PO Fr@0900 [facility] Last Admin: 11/11/24 10:10 Dose: 1,250 mcg Folic Acid (Folic Acid 1 Mg Tablet) 5 mg PO DAILY [facility] Last Admin: 11/14/24 08:29 Dose: 5 mg Hydroxyzine HCl (Hydroxyzine Hcl 25 Mg Tablet) 25 mg PO Q6H PRN PRN Reason: mild anxiety Last Admin: 11/14/24 00:47 Dose: 25 mg [place] Carbonate ([place] Carbonate 300 Mg Tablet) 150 mg PO BID [facility] Last Admin: 11/14/24 08:29 Dose: 150 mg Loperamide HCl (Loperamide Hcl 2 Mg Capsule) 2 mg PO Q4H PRN PRN Reason: diarrhea Lorazepam (Lorazepam 1 Mg Tablet) 1 mg PO TID [facility] Last Admin: 11/14/24 08:30 Dose: 1 mg Magnesium Hydroxide (Milk Of Magnesia 30 Ml Oral.Susp) 30 ml PO DAILY PRN PRN Reason: Constipation Memantine (Memantine Hcl 10 Mg Tablet) 10 mg PO BID [facility] Last Admin: 11/14/24 08:30 Dose: 10 mg Methimazole (Methimazole 5 Mg Tablet) 5 mg PO DAILY [facility] Last Admin: 11/14/24 08:29 Dose: 5 mg Nicotine Polacrilex (Nicotine Polacrilex 2 Mg Gum) 4 mg BUCCAL Q2H PRN PRN Reason: Nicotine Cravings Olanzapine (Olanzapine 2.5 Mg Tablet) 2.5 mg PO TID PRN PRN Reason: agitation Last Admin: 11/09/24 00:30 Dose: 2.5 mg Pyridoxine HCl (Pyridoxine Hcl (Vitamin B6) 50 Mg Tablet) 50 mg PO DAILY [facility] Last Admin: 11/14/24 08:29 Dose: 50 mg Quetiapine Fumarate (Quetiapine Fumarate 25 Mg Tablet) 75 mg PO BEDTIME [facility] Last Admin: 11/13/24 20:43 Dose: 75 mg Senna (Sennosides 8.6 Mg Tablet) 17.2 mg PO BEDTIME PRN PRN Reason: Constipation Trazodone HCl (Trazodone Hcl 50 Mg Tablet) 50 mg PO BEDTIME PRN PRN Reason: Insomnia Last Admin: 11/14/24 00:47 Dose: 50 mg Allergies Allergies Allergy/AdvReac Type Severity Reaction Status Date / Time artichoke Allergy Swelling Verified 10/27/24 23:58 perphenazine [From Trilafon] Allergy Anaphylaxis Verified 10/27/24 23:55 tree nut Allergy Unknown Verified 10/27/24 23:58 walnut Allergy Unknown Verified 10/27/24 23:58 Assessment & Plan Assessment & Plan (1) Frontotemporal dementia with behavioral disturbance: Status: Acute Code(s): G31.09 - Other frontotemporal neurocognitive disorder; F02.818 - Dementia in other diseases classified elsewhere, unspecified severity, with other behavioral disturbance (2) Bipolar disorder: Status: Acute Code(s): F31.9 - Bipolar disorder, unspecified (3) Goiter with hyperthyroidism: Status: Acute Code(s): E05.00 - Thyrotoxicosis with diffuse goiter without thyrotoxic crisis or storm Assessment and Plan: TSH-2.32 On tapazole 5mg po daily (4) CHF (congestive heart failure): Status: Acute Code(s): I50.9 - Heart failure, unspecified (5) Asthma: Status: Acute Code(s): J45.909 - Unspecified asthma, uncomplicated Plan Mrs. Duarte is a 59 year-old woman with hx of frontotemporal dementia, Bipolar Disorder who was brought to [facility] ED due to presenting with s/s of catatonia including staring, palilalia, negativism, purposeless behaviors which apparently is similar presentation as last year when she was diagnosed with Frontotemporal dementia. Frontotemporal Dementia does have higher risk of catatonia like symptoms and not uncommon presentation. On the unit, she received ativan 1mg with good effect improving s/s of verbigeration, catatonia. Will obtain records from [facility] and OP providers. Discussed with patient and patient's HCP Eliud, increasing ativan 1mg po TID. Will continue seroquel 50mg po qhs. PLAN 10/29 continue ativan 1mg po TID, currently on seroquel, somewhat expansive mood,visible taking medications. 10/30 continues on and off with verbigeration, along with confusion or disorganized thinking/logic when this happens. will lower ativan 0.5mg po TID- will request records tomorrow from [facility]. 10/31 continue tx. Left VM to her psychiatric provider. 11/01 continue tx. pending records from [facility] 11/02 increase seroquel to 75mg po qhs. 11/03: c/o diarrhea, imodium PRN ordered. otherwise continue current mgmt. modestly interacting. palilalia. 11/04 continue tx. may try increase in ativan for atypical features that may account for catatonia- including palilalia, purposeless behaviors such as standing up going in and out a room without clear purpose. 11/05/2024 Continue plan of care 11/06/2024 Continue plan of care 11/07 continue tx. awaiting records from [facility]. 11/08 d/c trileptal. Start lithium 150mg po BID. Increase namenda 10mg po BID. 11/09 continue tx. 11/10 continue tx. 11/11 continue tx. 11.12: Continue current management and treatment plan. 11/13: continue current management and treatment plan. 11/14 worsening in presentation, will hold on nemanda. Will continue lithium low dose for now. Will start rexulti 0.5mg po daily for mood. Reason for continued inpatient stay Substantial Risk for: inability to function Time Spent With Patient Time: Total time managing care of this patient today ____ minutes.
[2024-11-14] MEDS: Brexpiprazole 1 MG TABLET 0.5 MG PO (11:41)
[2024-11-14 20:00] VITALS: BP 135/72; PULSE 92; RESP 18; TEMP 36.8; O2SAT 94
[2024-11-14] MEDS: QUEtiapine Fumarate 25 MG TABLET 75 MG PO (20:18)
[2024-11-14] MEDS: Atorvastatin Calcium 20 MG TABLET PO (20:18)
[2024-11-15] MEDS: Brexpiprazole 1 MG TABLET 0.5 MG PO (07:48)
[2024-11-15] MEDS: Lithium Carbonate 300 MG TABLET 150 MG PO ×2 (07:48→20:36)
[2024-11-15] MEDS: Pyridoxine HCl (Vitamin B6) 50 MG TABLET PO (07:48)
[2024-11-15] MEDS: methIMAzole 5 MG TABLET PO (07:48)
[2024-11-15] MEDS: Folic Acid 1 MG TABLET 5 MG PO (07:48)
[2024-11-15] MEDS: LORazepam 1 MG TABLET PO ×3 (07:48→20:37)
[2024-11-15] MEDS: Apixaban 5 MG TABLET PO ×2 (07:49→20:38)
[2024-11-15 08:00] VITALS: BP 127/67; PULSE 111; RESP 16; TEMP 36.4; O2SAT 94
[2024-11-15 08:20] LABS: Lithium 0.26 mmol/L (0.60-1.20)
[2024-11-15 08:49] LABS: TSH reflex Free T4 3.54 uIU/mL (0.32-4.0)
--- NOTE | 2024-11-15 11:22 | HO.PSYCHPN ---
Subjective Subjective Date of Service: 11/15/24 Reason For Visit: Dementia W/Behavioral Disturbances Subjective Notes: Conditional Voluntary Interim History: Pt slept through the night. She appears more disheveled. She continues to present with palilalia. She has been visible today and attending to groups. She reports she is fine, fine She also reports she had fun, I had fun, fun fun conversation with not much substance. She denies SI/HI. Review of Systems Review of Systems Yes Unobtainable due to mental status Mental Status Exam Mental Status Exam Narrative: Appearance: wearing casual clothing, Behavior:seemingly cooperative Psychomotor: no agitation or retardation noted Speech: clear, monotone, spontaneous TP: Mostly linear TC:doing well here Mood: good Affect: constricted affect, but congruent SI: denies HI: denies VH/AH: no overt signs Delusions: no overt delusional content Insight/judgment: impaired x 2. Memory/cog: alert know she is in a hospital Diagnostics Vital Signs (24Hr): Vital Signs - 24 hr 11/14/24 20:00 11/15/24 08:00 Temperature 98.2 F 97.5 F Pulse Rate 92 111 H Respiratory Rate 18 16 Blood Pressure 135/72 127/67 Pulse Oximetry 94 94 Oxygen Delivery Method Room Air Room Air BMI result Body Mass Index 42.6 Labs 11/12/24 15:23 Labs: Laboratory Results - last 48 hr 11/15/24 07:37 TSH 3.54 [place] 0.26 L Medications Medications Current Medications Acetaminophen (Acetaminophen 325 Mg Tablet) 650 mg PO Q6H PRN PRN Reason: Headache/Pain, Scale 1-10 Last Admin: 10/28/24 13:48 Dose: 650 mg Al Hydroxide/Mg Hydroxide (Magnesium Hydrox/Alum Hydrox 30 Ml Oral.Susp) 30 ml PO Q6H PRN PRN Reason: Heartburn/Nausea Apixaban (Apixaban 5 Mg Tablet) 5 mg PO BID [facility] Last Admin: 11/15/24 07:49 Dose: 5 mg Atorvastatin Calcium (Atorvastatin Calcium 20 Mg Tablet) 20 mg PO BEDTIME [facility] Last Admin: 11/14/24 20:18 Dose: 20 mg Brexpiprazole (Brexpiprazole 1 Mg Tablet) 0.5 mg PO DAILY [facility] Last Admin: 11/15/24 07:48 Dose: 0.5 mg Ergocalciferol (Ergocalciferol (Vitamin D2) 1,250 Mcg Capsule) 1,250 mcg PO Fr@0900 [facility] Last Admin: 11/11/24 10:10 Dose: 1,250 mcg Folic Acid (Folic Acid 1 Mg Tablet) 5 mg PO DAILY [facility] Last Admin: 11/15/24 07:48 Dose: 5 mg Hydroxyzine HCl (Hydroxyzine Hcl 25 Mg Tablet) 25 mg PO Q6H PRN PRN Reason: mild anxiety Last Admin: 11/14/24 23:54 Dose: 25 mg [place] Carbonate ([place] Carbonate 300 Mg Tablet) 150 mg PO BID [facility] Last Admin: 11/15/24 07:48 Dose: 150 mg Loperamide HCl (Loperamide Hcl 2 Mg Capsule) 2 mg PO Q4H PRN PRN Reason: diarrhea Lorazepam (Lorazepam 1 Mg Tablet) 1 mg PO TID [facility] Last Admin: 11/15/24 07:48 Dose: 1 mg Magnesium Hydroxide (Milk Of Magnesia 30 Ml Oral.Susp) 30 ml PO DAILY PRN PRN Reason: Constipation Methimazole (Methimazole 5 Mg Tablet) 5 mg PO DAILY [facility] Last Admin: 11/15/24 07:48 Dose: 5 mg Nicotine Polacrilex (Nicotine Polacrilex 2 Mg Gum) 4 mg BUCCAL Q2H PRN PRN Reason: Nicotine Cravings Olanzapine (Olanzapine 2.5 Mg Tablet) 2.5 mg PO TID PRN PRN Reason: agitation Last Admin: 11/09/24 00:30 Dose: 2.5 mg Pyridoxine HCl (Pyridoxine Hcl (Vitamin B6) 50 Mg Tablet) 50 mg PO DAILY [facility] Last Admin: 11/15/24 07:48 Dose: 50 mg Quetiapine Fumarate (Quetiapine Fumarate 25 Mg Tablet) 75 mg PO BEDTIME [facility] Last Admin: 11/14/24 20:18 Dose: 75 mg Senna (Sennosides 8.6 Mg Tablet) 17.2 mg PO BEDTIME PRN PRN Reason: Constipation Trazodone HCl (Trazodone Hcl 50 Mg Tablet) 50 mg PO BEDTIME PRN PRN Reason: Insomnia Last Admin: 11/14/24 23:54 Dose: 50 mg Allergies Allergies Allergy/AdvReac Type Severity Reaction Status Date / Time artichoke Allergy Swelling Verified 10/27/24 23:58 perphenazine [From Trilafon] Allergy Anaphylaxis Verified 10/27/24 23:55 tree nut Allergy Unknown Verified 10/27/24 23:58 walnut Allergy Unknown Verified 10/27/24 23:58 Assessment & Plan Assessment & Plan (1) Frontotemporal dementia with behavioral disturbance: Status: Acute Code(s): G31.09 - Other frontotemporal neurocognitive disorder; F02.818 - Dementia in other diseases classified elsewhere, unspecified severity, with other behavioral disturbance (2) Bipolar disorder: Status: Acute Code(s): F31.9 - Bipolar disorder, unspecified (3) Goiter with hyperthyroidism: Status: Acute Code(s): E05.00 - Thyrotoxicosis with diffuse goiter without thyrotoxic crisis or storm Assessment and Plan: TSH-2.32 On tapazole 5mg po daily (4) CHF (congestive heart failure): Status: Acute Code(s): I50.9 - Heart failure, unspecified (5) Asthma: Status: Acute Code(s): J45.909 - Unspecified asthma, uncomplicated Plan Mrs. Duarte is a 59 year-old woman with hx of frontotemporal dementia, Bipolar Disorder who was brought to [facility] ED due to presenting with s/s of catatonia including staring, palilalia, negativism, purposeless behaviors which apparently is similar presentation as last year when she was diagnosed with Frontotemporal dementia. Frontotemporal Dementia does have higher risk of catatonia like symptoms and not uncommon presentation. On the unit, she received ativan 1mg with good effect improving s/s of verbigeration, catatonia. Will obtain records from [facility] and OP providers. Discussed with patient and patient's HCP Eliud, increasing ativan 1mg po TID. Will continue seroquel 50mg po qhs. PLAN 10/29 continue ativan 1mg po TID, currently on seroquel, somewhat expansive mood,visible taking medications. 10/30 continues on and off with verbigeration, along with confusion or disorganized thinking/logic when this happens. will lower ativan 0.5mg po TID- will request records tomorrow from [facility]. 10/31 continue tx. Left VM to her psychiatric provider. 11/01 continue tx. pending records from [facility] 11/02 increase seroquel to 75mg po qhs. 11/03: c/o diarrhea, imodium PRN ordered. otherwise continue current mgmt. modestly interacting. palilalia. 11/04 continue tx. may try increase in ativan for atypical features that may account for catatonia- including palilalia, purposeless behaviors such as standing up going in and out a room without clear purpose. 11/05/2024 Continue plan of care 11/06/2024 Continue plan of care 11/07 continue tx. awaiting records from [facility]. 11/08 d/c trileptal. Start lithium 150mg po BID. Increase namenda 10mg po BID. 11/09 continue tx. 11/10 continue tx. 11/11 continue tx. 11.12: Continue current management and treatment plan. 11/13: continue current management and treatment plan. 11/14 worsening in presentation, will hold on nemanda. Will continue lithium low dose for now. Will start rexulti 0.5mg po daily for mood. 11/15 continue tx. Reason for continued inpatient stay Substantial Risk for: inability to function Time Spent With Patient Time: Total time managing care of this patient today ____ minutes.
[2024-11-15 20:00] VITALS: BP 132/66; PULSE 97; RESP 18; TEMP 36.9; O2SAT 96
[2024-11-15] MEDS: QUEtiapine Fumarate 25 MG TABLET 75 MG PO (20:35)
[2024-11-15] MEDS: traZODone HCL 50 MG TABLET PO (20:37)
[2024-11-15] MEDS: Atorvastatin Calcium 20 MG TABLET PO (20:37)
[2024-11-15] MEDS: hydrOXYzine HCL 25 MG TABLET PO (20:37)
[2024-11-16] MEDS: OLANZapine 2.5 MG TABLET PO ×2 (00:46→20:11)
[2024-11-16] MEDS: traZODone HCL 50 MG TABLET PO ×2 (00:46→20:09)
[2024-11-16 08:00] VITALS: BP 135/76; PULSE 100; RESP 18; TEMP 36.4; O2SAT 94
[2024-11-16] MEDS: LORazepam 1 MG TABLET PO ×3 (08:29→20:08)
[2024-11-16] MEDS: Brexpiprazole 1 MG TABLET 0.5 MG PO (08:29)
[2024-11-16] MEDS: Folic Acid 1 MG TABLET 5 MG PO (08:29)
[2024-11-16] MEDS: Pyridoxine HCl (Vitamin B6) 50 MG TABLET PO (08:30)
[2024-11-16] MEDS: methIMAzole 5 MG TABLET PO (08:30)
[2024-11-16] MEDS: Apixaban 5 MG TABLET PO ×2 (08:30→20:10)
[2024-11-16] MEDS: Lithium Carbonate 300 MG TABLET 150 MG PO (08:30)
[2024-11-16] MEDS: Acetaminophen 325 MG TABLET 650 MG PO (08:36)
--- NOTE | 2024-11-16 11:43 | HO.PSYCHPN ---
Subjective Subjective Date of Service: 11/16/24 Reason For Visit: Dementia W/Behavioral Disturbances Subjective Notes: Conditional Voluntary Interim History: Pt slept through the night. Hygiene slightly improved and more visible on the unit. She has attended some groups although participation is minimal. She was somewhat loud and disruptive during group and asked to leave (mostly repeating same words on and on). She denies SI/HI. blank stare. no overt delusional content or psychosis noted. Review of Systems Review of Systems Yes Unobtainable due to mental status Mental Status Exam Mental Status Exam Narrative: Appearance: wearing casual clothing, Behavior:seemingly cooperative Psychomotor: no agitation or retardation noted Speech: clear, monotone, spontaneous TP: Mostly linear TC:doing well here Mood: good Affect: constricted affect, but congruent SI: denies HI: denies VH/AH: no overt signs Delusions: no overt delusional content Insight/judgment: impaired x 2. Memory/cog: alert know she is in a hospital Diagnostics Vital Signs (24Hr): Vital Signs - 24 hr 11/15/24 20:00 11/16/24 08:00 Temperature 98.4 F 97.6 F Pulse Rate 97 100 Respiratory Rate 18 18 Blood Pressure 132/66 135/76 Pulse Oximetry 96 94 Oxygen Delivery Method Room Air Room Air BMI result Body Mass Index 42.6 Labs 11/12/24 15:23 Labs: Laboratory Results - last 48 hr 11/15/24 07:37 TSH 3.54 [place] 0.26 L Medications Medications Current Medications Acetaminophen (Acetaminophen 325 Mg Tablet) 650 mg PO Q6H PRN PRN Reason: Headache/Pain, Scale 1-10 Last Admin: 11/16/24 08:36 Dose: 650 mg Al Hydroxide/Mg Hydroxide (Magnesium Hydrox/Alum Hydrox 30 Ml Oral.Susp) 30 ml PO Q6H PRN PRN Reason: Heartburn/Nausea Apixaban (Apixaban 5 Mg Tablet) 5 mg PO BID [facility] Last Admin: 11/16/24 08:30 Dose: 5 mg Atorvastatin Calcium (Atorvastatin Calcium 20 Mg Tablet) 20 mg PO BEDTIME [facility] Last Admin: 11/15/24 20:37 Dose: 20 mg Brexpiprazole (Brexpiprazole 1 Mg Tablet) 0.5 mg PO DAILY [facility] Last Admin: 11/16/24 08:29 Dose: 0.5 mg Ergocalciferol (Ergocalciferol (Vitamin D2) 1,250 Mcg Capsule) 1,250 mcg PO Fr@0900 [facility] Last Admin: 11/11/24 10:10 Dose: 1,250 mcg Folic Acid (Folic Acid 1 Mg Tablet) 5 mg PO DAILY [facility] Last Admin: 11/16/24 08:29 Dose: 5 mg Hydroxyzine HCl (Hydroxyzine Hcl 25 Mg Tablet) 25 mg PO Q6H PRN PRN Reason: mild anxiety Last Admin: 11/15/24 20:37 Dose: 25 mg [place] Carbonate ([place] Carbonate 300 Mg Tablet) 150 mg PO BID [facility] Last Admin: 11/16/24 08:30 Dose: 150 mg Loperamide HCl (Loperamide Hcl 2 Mg Capsule) 2 mg PO Q4H PRN PRN Reason: diarrhea Lorazepam (Lorazepam 1 Mg Tablet) 1 mg PO TID [facility] Last Admin: 11/16/24 08:29 Dose: 1 mg Magnesium Hydroxide (Milk Of Magnesia 30 Ml Oral.Susp) 30 ml PO DAILY PRN PRN Reason: Constipation Methimazole (Methimazole 5 Mg Tablet) 5 mg PO DAILY [facility] Last Admin: 11/16/24 08:30 Dose: 5 mg Nicotine Polacrilex (Nicotine Polacrilex 2 Mg Gum) 4 mg [place] Q2H PRN PRN Reason: Nicotine Cravings Olanzapine (Olanzapine 2.5 Mg Tablet) 2.5 mg PO TID PRN PRN Reason: agitation Last Admin: 11/16/24 00:46 Dose: 2.5 mg Pyridoxine HCl (Pyridoxine Hcl (Vitamin B6) 50 Mg Tablet) 50 mg PO DAILY [facility] Last Admin: 11/16/24 08:30 Dose: 50 mg Quetiapine Fumarate (Quetiapine Fumarate 25 Mg Tablet) 75 mg PO BEDTIME [facility] Last Admin: 11/15/24 20:35 Dose: 75 mg Senna (Sennosides 8.6 Mg Tablet) 17.2 mg PO BEDTIME PRN PRN Reason: Constipation Trazodone HCl (Trazodone Hcl 50 Mg Tablet) 50 mg PO BEDTIME PRN PRN Reason: Insomnia Last Admin: 11/16/24 00:46 Dose: 50 mg Allergies Allergies Allergy/AdvReac Type Severity Reaction Status Date / Time artichoke Allergy Swelling Verified 10/27/24 23:58 perphenazine [From Trilafon] Allergy Anaphylaxis Verified 10/27/24 23:55 tree nut Allergy Unknown Verified 10/27/24 23:58 walnut Allergy Unknown Verified 10/27/24 23:58 Assessment & Plan Assessment & Plan (1) Frontotemporal dementia with behavioral disturbance: Status: Acute Code(s): G31.09 - Other frontotemporal neurocognitive disorder; F02.818 - Dementia in other diseases classified elsewhere, unspecified severity, with other behavioral disturbance (2) Bipolar disorder: Status: Acute Code(s): F31.9 - Bipolar disorder, unspecified (3) Goiter with hyperthyroidism: Status: Acute Code(s): E05.00 - Thyrotoxicosis with diffuse goiter without thyrotoxic crisis or storm Assessment and Plan: TSH-2.32 On tapazole 5mg po daily (4) CHF (congestive heart failure): Status: Acute Code(s): I50.9 - Heart failure, unspecified (5) Asthma: Status: Acute Code(s): J45.909 - Unspecified asthma, uncomplicated Plan Mrs. Duarte is a 59 year-old woman with hx of frontotemporal dementia, Bipolar Disorder who was brought to [facility] ED due to presenting with s/s of catatonia including staring, palilalia, negativism, purposeless behaviors which apparently is similar presentation as last year when she was diagnosed with Frontotemporal dementia. Frontotemporal Dementia does have higher risk of catatonia like symptoms and not uncommon presentation. On the unit, she received ativan 1mg with good effect improving s/s of verbigeration, catatonia. Will obtain records from [facility] and OP providers. Discussed with patient and patient's HCP Eliud, increasing ativan 1mg po TID. Will continue seroquel 50mg po qhs. PLAN 10/29 continue ativan 1mg po TID, currently on seroquel, somewhat expansive mood,visible taking medications. 10/30 continues on and off with verbigeration, along with confusion or disorganized thinking/logic when this happens. will lower ativan 0.5mg po TID- will request records tomorrow from [facility]. 10/31 continue tx. Left VM to her psychiatric provider. 11/01 continue tx. pending records from [facility] 11/02 increase seroquel to 75mg po qhs. 11/03: c/o diarrhea, imodium PRN ordered. otherwise continue current mgmt. modestly interacting. palilalia. 11/04 continue tx. may try increase in ativan for atypical features that may account for catatonia- including palilalia, purposeless behaviors such as standing up going in and out a room without clear purpose. 11/05/2024 Continue plan of care 11/06/2024 Continue plan of care 11/07 continue tx. awaiting records from [facility]. 11/08 d/c trileptal. Start lithium 150mg po BID. Increase namenda 10mg po BID. 11/09 continue tx. 11/10 continue tx. 11/11 continue tx. .: Continue current management and treatment plan. 11/13: continue current management and treatment plan. 11/14 worsening in presentation, will hold on nemanda. Will continue lithium low dose for now. Will start rexulti 0.5mg po daily for mood. 11/15 continue tx. 11/16 will switch back to trileptal as she seemed to be doing better with it. d/c lithium. Reason for continued inpatient stay Substantial Risk for: inability to function Time Spent With Patient Time: Total time managing care of this patient today ____ minutes.
[2024-11-16 20:00] VITALS: BP 110/59; PULSE 84; RESP 16; TEMP 36.6; O2SAT 95
[2024-11-16] MEDS: QUEtiapine Fumarate 25 MG TABLET 75 MG PO (20:07)
[2024-11-16] MEDS: OXcarbazepine 300 MG TABLET 600 MG PO (20:08)
[2024-11-16] MEDS: Atorvastatin Calcium 20 MG TABLET PO (20:09)
[2024-11-16] MEDS: hydrOXYzine HCL 25 MG TABLET PO (20:09)
[2024-11-17] MEDS: hydrOXYzine HCL 25 MG TABLET PO (02:42)
[2024-11-17] MEDS: traZODone HCL 50 MG TABLET PO (02:42)
[2024-11-17 08:00] VITALS: BP 116/62; PULSE 98; RESP 18; TEMP 36.6; O2SAT 94
[2024-11-17] MEDS: methIMAzole 5 MG TABLET PO (08:05)
[2024-11-17] MEDS: OXcarbazepine 300 MG TABLET 600 MG PO ×2 (08:05→20:21)
[2024-11-17] MEDS: Pyridoxine HCl (Vitamin B6) 50 MG TABLET PO (08:05)
[2024-11-17] MEDS: Apixaban 5 MG TABLET PO ×2 (08:05→20:21)
[2024-11-17] MEDS: LORazepam 1 MG TABLET PO ×3 (08:05→20:21)
[2024-11-17] MEDS: Folic Acid 1 MG TABLET 5 MG PO (08:06)
[2024-11-17] MEDS: Brexpiprazole 1 MG TABLET 0.5 MG PO (08:06)
[2024-11-17 09:42] VITALS: BMI 42.4
--- NOTE | 2024-11-17 16:57 | P.PNPSI_ITS ---
Subjective Subjective Date of Service: 11/17/24 Reason For Visit: Dementia W/Behavioral Disturbances Subjective Notes: Conditional Voluntary Interim History: Pt slept through the night.Continues with palilalia, as well as poverty of thought and limited insight into cognitive and mental illness. No SI/HI. Slightly less palilalia. no behavioral concerns. Medication Compliance: Yes Review of Systems Review of Systems Yes Unobtainable due to mental status Mental Status Exam Mental Status Exam Narrative: Appearance: wearing casual clothing, Behavior:seemingly cooperative Psychomotor: no agitation or retardation noted Speech: clear, monotone, spontaneous TP: Mostly linear TC:doing well here Mood: good Affect: constricted affect, but congruent SI: denies HI: denies VH/AH: no overt signs Delusions: no overt delusional content Insight/judgment: impaired x 2. Memory/cog: alert know she is in a hospital Diagnostics Vital Signs (24Hr): Vital Signs - 24 hr 11/16/24 20:00 11/17/24 08:00 Temperature 97.9 F 97.9 F Pulse Rate 84 98 Respiratory Rate 16 18 Blood Pressure 110/59 L 116/62 Pulse Oximetry 95 94 Oxygen Delivery Method Room Air Room Air BMI result Body Mass Index 42.4 Labs 11/12/24 15:23 Medications Medications Current Medications Acetaminophen (Acetaminophen 325 Mg Tablet) 650 mg PO Q6H PRN PRN Reason: Headache/Pain, Scale 1-10 Last Admin: 11/16/24 08:36 Dose: 650 mg Al Hydroxide/Mg Hydroxide (Magnesium Hydrox/Alum Hydrox 30 Ml Oral.Susp) 30 ml PO Q6H PRN PRN Reason: Heartburn/Nausea Apixaban (Apixaban 5 Mg Tablet) 5 mg PO BID [facility] Last Admin: 11/17/24 08:05 Dose: 5 mg Atorvastatin Calcium (Atorvastatin Calcium 20 Mg Tablet) 20 mg PO BEDTIME [facility] Last Admin: 11/16/24 20:09 Dose: 20 mg Brexpiprazole (Brexpiprazole 1 Mg Tablet) 0.5 mg PO DAILY [facility] Last Admin: 11/17/24 08:06 Dose: 0.5 mg Ergocalciferol (Ergocalciferol (Vitamin D2) 1,250 Mcg Capsule) 1,250 mcg PO Fr@0900 [facility] Last Admin: 11/11/24 10:10 Dose: 1,250 mcg Folic Acid (Folic Acid 1 Mg Tablet) 5 mg PO DAILY [facility] Last Admin: 11/17/24 08:06 Dose: 5 mg Hydroxyzine HCl (Hydroxyzine Hcl 25 Mg Tablet) 25 mg PO Q6H PRN PRN Reason: mild anxiety Last Admin: 11/17/24 02:42 Dose: 25 mg Loperamide HCl (Loperamide Hcl 2 Mg Capsule) 2 mg PO Q4H PRN PRN Reason: diarrhea Lorazepam (Lorazepam 1 Mg Tablet) 1 mg PO TID [facility] Last Admin: 11/17/24 14:43 Dose: 1 mg Magnesium Hydroxide (Milk Of Magnesia 30 Ml Oral.Susp) 30 ml PO DAILY PRN PRN Reason: Constipation Methimazole (Methimazole 5 Mg Tablet) 5 mg PO DAILY [facility] Last Admin: 11/17/24 08:05 Dose: 5 mg Nicotine Polacrilex (Nicotine Polacrilex 2 Mg Gum) 4 mg BUCCAL Q2H PRN PRN Reason: Nicotine Cravings Olanzapine (Olanzapine 2.5 Mg Tablet) 2.5 mg PO TID PRN PRN Reason: agitation Last Admin: 11/16/24 20:11 Dose: 2.5 mg Oxcarbazepine (Oxcarbazepine 300 Mg Tablet) 600 mg PO BID [facility] Last Admin: 11/17/24 08:05 Dose: 600 mg Pyridoxine HCl (Pyridoxine Hcl (Vitamin B6) 50 Mg Tablet) 50 mg PO DAILY [facility] Last Admin: 11/17/24 08:05 Dose: 50 mg Quetiapine Fumarate (Quetiapine Fumarate 25 Mg Tablet) 75 mg PO BEDTIME [facility] Last Admin: 11/16/24 20:07 Dose: 75 mg Senna (Sennosides 8.6 Mg Tablet) 17.2 mg PO BEDTIME PRN PRN Reason: Constipation Trazodone HCl (Trazodone Hcl 50 Mg Tablet) 50 mg PO BEDTIME PRN PRN Reason: Insomnia Last Admin: 11/17/24 02:42 Dose: 50 mg Allergies Allergies Allergy/AdvReac Type Severity Reaction Status Date / Time artichoke Allergy Swelling Verified 10/27/24 23:58 perphenazine [From Trilafon] Allergy Anaphylaxis Verified 10/27/24 23:55 tree nut Allergy Unknown Verified 10/27/24 23:58 walnut Allergy Unknown Verified 10/27/24 23:58 Assessment & Plan Assessment & Plan (1) Frontotemporal dementia with behavioral disturbance: Status: Acute Code(s): G31.09 - Other frontotemporal neurocognitive disorder; F02.818 - Dementia in other diseases classified elsewhere, unspecified severity, with other behavioral disturbance (2) Bipolar disorder: Status: Acute Code(s): F31.9 - Bipolar disorder, unspecified (3) Goiter with hyperthyroidism: Status: Acute Code(s): E05.00 - Thyrotoxicosis with diffuse goiter without thyrotoxic crisis or storm Assessment and Plan: TSH-2.32 On tapazole 5mg po daily (4) CHF (congestive heart failure): Status: Acute Code(s): I50.9 - Heart failure, unspecified (5) Asthma: Status: Acute Code(s): J45.909 - Unspecified asthma, uncomplicated Plan Mrs. Duarte is a 59 year-old woman with hx of frontotemporal dementia, Bipolar Disorder who was brought to [facility] ED due to presenting with s/s of catatonia including staring, palilalia, negativism, purposeless behaviors which apparently is similar presentation as last year when she was diagnosed with Frontotemporal dementia. Frontotemporal Dementia does have higher risk of catatonia like symptoms and not uncommon presentation. On the unit, she received ativan 1mg with good effect improving s/s of verbigeration, catatonia. Will obtain records from [facility] and OP providers. Discussed with patient and patient's HCP Eliud, increasing ativan 1mg po TID. Will continue seroquel 50mg po qhs. PLAN 10/29 continue ativan 1mg po TID, currently on seroquel, somewhat expansive mood,visible taking medications. 10/30 continues on and off with verbigeration, along with confusion or disorganized thinking/logic when this happens. will lower ativan 0.5mg po TID- will request records tomorrow from [facility]. 10/31 continue tx. Left VM to her psychiatric provider. 11/01 continue tx. pending records from [facility] 11/02 increase seroquel to 75mg po qhs. 11/03: c/o diarrhea, imodium PRN ordered. otherwise continue current mgmt. modestly interacting. palilalia. 11/04 continue tx. may try increase in ativan for atypical features that may account for catatonia- including palilalia, purposeless behaviors such as standing up going in and out a room without clear purpose. 11/05/2024 Continue plan of care 11/06/2024 Continue plan of care 11/07 continue tx. awaiting records from [facility]. 11/08 d/c trileptal. Start lithium 150mg po BID. Increase namenda 10mg po BID. 11/09 continue tx. 11/10 continue tx. 11/11 continue tx. 11.12: Continue current management and treatment plan. 11/13: continue current management and treatment plan. 11/14 worsening in presentation, will hold on nemanda. Will continue lithium low dose for now. Will start rexulti 0.5mg po daily for mood. 11/15 continue tx. 11/16 switch lithium to trileptal as seems to do better with it. 11/17 continue tx. Reason for continued inpatient stay Substantial Risk for: inability to function Time Spent With Patient Time: Total time managing care of this patient today ____ minutes.
[2024-11-17 20:17] VITALS: BP 105/58; PULSE 92; RESP 15; TEMP 36.7; O2SAT 95
[2024-11-17] MEDS: Atorvastatin Calcium 20 MG TABLET PO (20:20)
[2024-11-17] MEDS: QUEtiapine Fumarate 25 MG TABLET 75 MG PO (20:20)
[2024-11-17] MEDS: OLANZapine 2.5 MG TABLET PO (20:23)
[2024-11-18] MEDS: traZODone HCL 50 MG TABLET PO (01:03)
[2024-11-18] MEDS: hydrOXYzine HCL 25 MG TABLET PO (01:03)
[2024-11-18 08:00] VITALS: BP 119/60; PULSE 87; RESP 18; TEMP 36.3; O2SAT 95
[2024-11-18] MEDS: Pyridoxine HCl (Vitamin B6) 50 MG TABLET PO (08:23)
[2024-11-18] MEDS: OXcarbazepine 300 MG TABLET 600 MG PO ×2 (08:23→20:06)
[2024-11-18] MEDS: Brexpiprazole 1 MG TABLET 0.5 MG PO (08:23)
[2024-11-18] MEDS: LORazepam 1 MG TABLET PO ×3 (08:23→20:06)
[2024-11-18] MEDS: Folic Acid 1 MG TABLET 5 MG PO (08:23)
[2024-11-18] MEDS: methIMAzole 5 MG TABLET PO (08:23)
[2024-11-18] MEDS: Apixaban 5 MG TABLET PO ×2 (08:24→20:06)
[2024-11-18] MEDS: Ergocalciferol (Vitamin D2) 1,250 MCG CAPSULE 1250 MCG PO (09:43)
--- NOTE | 2024-11-18 17:30 | HO.PSYCHPN ---
Subjective Subjective Date of Service: 11/18/24 Reason For Visit: Dementia W/Behavioral Disturbances Subjective Notes: Conditional Voluntary Interim History: Pt slept through the night. She presents with expansive mood, thanking everyone and wanting to hug patients and staff alike to tell them she loves them No SI/HI. She is looking forward to return home on Thursday. Review of Systems Review of Systems Yes Unobtainable due to mental status Mental Status Exam Mental Status Exam Narrative: Appearance: wearing casual clothing, Behavior:seemingly cooperative Psychomotor: no agitation or retardation noted Speech: clear, monotone, spontaneous TP: Mostly linear TC:doing well here Mood: good Affect: somewhat expansive SI: denies HI: denies VH/AH: no overt signs Delusions: no overt delusional content Insight/judgment: impaired x 2. Memory/cog: alert know she is in a hospital Diagnostics Vital Signs (24Hr): Vital Signs - 24 hr 11/17/24 20:17 11/18/24 08:00 Temperature 98.1 F 97.4 F Pulse Rate 92 87 Respiratory Rate 15 18 Blood Pressure 105/58 L 119/60 Pulse Oximetry 95 95 Oxygen Delivery Method Room Air Room Air BMI result Body Mass Index 42.4 Labs 11/12/24 15:23 Medications Medications Current Medications Acetaminophen (Acetaminophen 325 Mg Tablet) 650 mg PO Q6H PRN PRN Reason: Headache/Pain, Scale 1-10 Last Admin: 11/16/24 08:36 Dose: 650 mg Al Hydroxide/Mg Hydroxide (Magnesium Hydrox/Alum Hydrox 30 Ml Oral.Susp) 30 ml PO Q6H PRN PRN Reason: Heartburn/Nausea Apixaban (Apixaban 5 Mg Tablet) 5 mg PO BID [facility] Last Admin: 11/18/24 08:24 Dose: 5 mg Atorvastatin Calcium (Atorvastatin Calcium 20 Mg Tablet) 20 mg PO BEDTIME [facility] Last Admin: 11/17/24 20:20 Dose: 20 mg Brexpiprazole (Brexpiprazole 1 Mg Tablet) 0.5 mg PO DAILY [facility] Last Admin: 11/18/24 08:23 Dose: 0.5 mg Ergocalciferol (Ergocalciferol (Vitamin D2) 1,250 Mcg Capsule) 1,250 mcg PO Fr@0900 [facility] Last Admin: 11/18/24 09:43 Dose: 1,250 mcg Folic Acid (Folic Acid 1 Mg Tablet) 5 mg PO DAILY [facility] Last Admin: 11/18/24 08:23 Dose: 5 mg Hydroxyzine HCl (Hydroxyzine Hcl 25 Mg Tablet) 25 mg PO Q6H PRN PRN Reason: mild anxiety Last Admin: 11/18/24 01:03 Dose: 25 mg Loperamide HCl (Loperamide Hcl 2 Mg Capsule) 2 mg PO Q4H PRN PRN Reason: diarrhea Lorazepam (Lorazepam 1 Mg Tablet) 1 mg PO TID [facility] Last Admin: 11/18/24 14:31 Dose: 1 mg Magnesium Hydroxide (Milk Of Magnesia 30 Ml Oral.Susp) 30 ml PO DAILY PRN PRN Reason: Constipation Methimazole (Methimazole 5 Mg Tablet) 5 mg PO DAILY [facility] Last Admin: 11/18/24 08:23 Dose: 5 mg Nicotine Polacrilex (Nicotine Polacrilex 2 Mg Gum) 4 mg BUCCAL Q2H PRN PRN Reason: Nicotine Cravings Olanzapine (Olanzapine 2.5 Mg Tablet) 2.5 mg PO TID PRN PRN Reason: agitation Last Admin: 11/17/24 20:23 Dose: 2.5 mg Oxcarbazepine (Oxcarbazepine 300 Mg Tablet) 600 mg PO BID [facility] Last Admin: 11/18/24 08:23 Dose: 600 mg Pyridoxine HCl (Pyridoxine Hcl (Vitamin B6) 50 Mg Tablet) 50 mg PO DAILY [facility] Last Admin: 11/18/24 08:23 Dose: 50 mg Quetiapine Fumarate (Quetiapine Fumarate 25 Mg Tablet) 75 mg PO BEDTIME [facility] Last Admin: 11/17/24 20:20 Dose: 75 mg Senna (Sennosides 8.6 Mg Tablet) 17.2 mg PO BEDTIME PRN PRN Reason: Constipation Trazodone HCl (Trazodone Hcl 50 Mg Tablet) 50 mg PO BEDTIME PRN PRN Reason: Insomnia Last Admin: 11/18/24 01:03 Dose: 50 mg Allergies Allergies Allergy/AdvReac Type Severity Reaction Status Date / Time artichoke Allergy Swelling Verified 10/27/24 23:58 perphenazine [From Trilafon] Allergy Anaphylaxis Verified 10/27/24 23:55 tree nut Allergy Unknown Verified 10/27/24 23:58 walnut Allergy Unknown Verified 10/27/24 23:58 Assessment & Plan Assessment & Plan (1) Frontotemporal dementia with behavioral disturbance: Status: Acute Code(s): G31.09 - Other frontotemporal neurocognitive disorder; F02.818 - Dementia in other diseases classified elsewhere, unspecified severity, with other behavioral disturbance (2) Bipolar disorder: Status: Acute Code(s): F31.9 - Bipolar disorder, unspecified (3) Goiter with hyperthyroidism: Status: Acute Code(s): E05.00 - Thyrotoxicosis with diffuse goiter without thyrotoxic crisis or storm Assessment and Plan: TSH-2.32 On tapazole 5mg po daily (4) CHF (congestive heart failure): Status: Acute Code(s): I50.9 - Heart failure, unspecified (5) Asthma: Status: Acute Code(s): J45.909 - Unspecified asthma, uncomplicated Plan Mrs. Duarte is a 59 year-old woman with hx of frontotemporal dementia, Bipolar Disorder who was brought to [facility] ED due to presenting with s/s of catatonia including staring, palilalia, negativism, purposeless behaviors which apparently is similar presentation as last year when she was diagnosed with Frontotemporal dementia. Frontotemporal Dementia does have higher risk of catatonia like symptoms and not uncommon presentation. On the unit, she received ativan 1mg with good effect improving s/s of verbigeration, catatonia. Will obtain records from [facility] and OP providers. Discussed with patient and patient's HCP Eliud, increasing ativan 1mg po TID. Will continue seroquel 50mg po qhs. PLAN 10/29 continue ativan 1mg po TID, currently on seroquel, somewhat expansive mood,visible taking medications. 10/30 continues on and off with verbigeration, along with confusion or disorganized thinking/logic when this happens. will lower ativan 0.5mg po TID- will request records tomorrow from [facility]. 10/31 continue tx. Left VM to her psychiatric provider. 11/01 continue tx. pending records from [facility] 11/02 increase seroquel to 75mg po qhs. 11/03: c/o diarrhea, imodium PRN ordered. otherwise continue current mgmt. modestly interacting. palilalia. 11/04 continue tx. may try increase in ativan for atypical features that may account for catatonia- including palilalia, purposeless behaviors such as standing up going in and out a room without clear purpose. 11/05/2024 Continue plan of care 11/06/2024 Continue plan of care 11/07 continue tx. awaiting records from [facility]. 11/08 d/c trileptal. Start lithium 150mg po BID. Increase namenda 10mg po BID. 11/09 continue tx. 11/10 continue tx. 11/11 continue tx. 11.12: Continue current management and treatment plan. 11/13: continue current management and treatment plan. 11/14 worsening in presentation, will hold on nemanda. Will continue lithium low dose for now. Will start rexulti 0.5mg po daily for mood. 11/15 continue tx. 11/16 switch lithium to trileptal as seems to do better with it. 11/17 continue tx. 11/18 increase rexulti to 1mg po daily Reason for continued inpatient stay Substantial Risk for: inability to function Time Spent With Patient Time: Total time managing care of this patient today ____ minutes.
[2024-11-18 20:00] VITALS: BP 130/62; PULSE 86; RESP 17; TEMP 36.1; O2SAT 95
[2024-11-18] MEDS: Atorvastatin Calcium 20 MG TABLET PO (20:06)
[2024-11-18] MEDS: QUEtiapine Fumarate 25 MG TABLET 75 MG PO (20:07)
[2024-11-19] MEDS: hydrOXYzine HCL 25 MG TABLET PO ×2 (00:44→23:13)
[2024-11-19] MEDS: traZODone HCL 50 MG TABLET PO ×3 (00:44→23:13)
[2024-11-19 08:00] VITALS: BP 124/60; PULSE 94; RESP 18; TEMP 36.5; O2SAT 95
[2024-11-19] MEDS: methIMAzole 5 MG TABLET PO (08:18)
[2024-11-19] MEDS: Pyridoxine HCl (Vitamin B6) 50 MG TABLET PO (08:18)
[2024-11-19] MEDS: Folic Acid 1 MG TABLET 5 MG PO (08:19)
[2024-11-19] MEDS: OXcarbazepine 300 MG TABLET 600 MG PO ×2 (08:19→20:26)
[2024-11-19] MEDS: LORazepam 1 MG TABLET PO ×3 (08:19→20:26)
[2024-11-19] MEDS: Apixaban 5 MG TABLET PO ×2 (08:19→20:25)
[2024-11-19] MEDS: Brexpiprazole 1 MG TABLET 0.5 MG PO (08:19)
--- NOTE | 2024-11-19 16:14 | HO.PSYCHPN ---
Subjective Subjective Date of Service: 11/19/24 Reason For Visit: Dementia W/Behavioral Disturbances Interim History: no questions complaints concerns. per staff, pleasant. taking meds. eating well, sleeping well. brighter. D/C thursday. Mental Status Exam Mental Status Exam Narrative: Appearance: wearing casual clothing, Behavior:seemingly cooperative Psychomotor: no agitation or retardation noted Speech: clear, monotone, spontaneous TP: Mostly linear TC:doing well here Mood: good Affect: somewhat expansive SI: denies HI: denies VH/AH: no overt signs Delusions: no overt delusional content Insight/judgment: impaired x 2. Memory/cog: alert know she is in a hospital Diagnostics Vital Signs (24Hr): Vital Signs - 24 hr 11/18/24 20:00 11/19/24 08:00 Temperature 96.9 F 97.7 F Pulse Rate 86 94 Respiratory Rate 17 18 Blood Pressure 130/62 124/60 Pulse Oximetry 95 95 Oxygen Delivery Method Room Air Room Air BMI result Body Mass Index 42.4 Labs 11/12/24 15:23 Medications Medications Current Medications Acetaminophen (Acetaminophen 325 Mg Tablet) 650 mg PO Q6H PRN PRN Reason: Headache/Pain, Scale 1-10 Last Admin: 11/16/24 08:36 Dose: 650 mg Al Hydroxide/Mg Hydroxide (Magnesium Hydrox/Alum Hydrox 30 Ml Oral.Susp) 30 ml PO Q6H PRN PRN Reason: Heartburn/Nausea Apixaban (Apixaban 5 Mg Tablet) 5 mg PO BID [facility] Last Admin: 11/19/24 08:19 Dose: 5 mg Atorvastatin Calcium (Atorvastatin Calcium 20 Mg Tablet) 20 mg PO BEDTIME [facility] Last Admin: 11/18/24 20:06 Dose: 20 mg Brexpiprazole (Brexpiprazole 1 Mg Tablet) 1 mg PO DAILY [facility] Ergocalciferol (Ergocalciferol (Vitamin D2) 1,250 Mcg Capsule) 1,250 mcg PO Fr@0900 [facility] Last Admin: 11/18/24 09:43 Dose: 1,250 mcg Folic Acid (Folic Acid 1 Mg Tablet) 5 mg PO DAILY [facility] Last Admin: 11/19/24 08:19 Dose: 5 mg Hydroxyzine HCl (Hydroxyzine Hcl 25 Mg Tablet) 25 mg PO Q6H PRN PRN Reason: mild anxiety Last Admin: 11/19/24 00:44 Dose: 25 mg Loperamide HCl (Loperamide Hcl 2 Mg Capsule) 2 mg PO Q4H PRN PRN Reason: diarrhea Lorazepam (Lorazepam 1 Mg Tablet) 1 mg PO TID [facility] Last Admin: 11/19/24 14:44 Dose: 1 mg Magnesium Hydroxide (Milk Of Magnesia 30 Ml Oral.Susp) 30 ml PO DAILY PRN PRN Reason: Constipation Methimazole (Methimazole 5 Mg Tablet) 5 mg PO DAILY [facility] Last Admin: 11/19/24 08:18 Dose: 5 mg Nicotine Polacrilex (Nicotine Polacrilex 2 Mg Gum) 4 mg BUCCAL Q2H PRN PRN Reason: Nicotine Cravings Olanzapine (Olanzapine 2.5 Mg Tablet) 2.5 mg PO TID PRN PRN Reason: agitation Last Admin: 11/17/24 20:23 Dose: 2.5 mg Oxcarbazepine (Oxcarbazepine 300 Mg Tablet) 600 mg PO BID [facility] Last Admin: 11/19/24 08:19 Dose: 600 mg Pyridoxine HCl (Pyridoxine Hcl (Vitamin B6) 50 Mg Tablet) 50 mg PO DAILY [facility] Last Admin: 11/19/24 08:18 Dose: 50 mg Quetiapine Fumarate (Quetiapine Fumarate 25 Mg Tablet) 75 mg PO BEDTIME [facility] Last Admin: 11/18/24 20:07 Dose: 75 mg Senna (Sennosides 8.6 Mg Tablet) 17.2 mg PO BEDTIME PRN PRN Reason: Constipation Trazodone HCl (Trazodone Hcl 50 Mg Tablet) 50 mg PO BEDTIME PRN PRN Reason: Insomnia Last Admin: 11/19/24 00:44 Dose: 50 mg Allergies Allergies Allergy/AdvReac Type Severity Reaction Status Date / Time artichoke Allergy Swelling Verified 10/27/24 23:58 perphenazine [From Trilafon] Allergy Anaphylaxis Verified 10/27/24 23:55 tree nut Allergy Unknown Verified 10/27/24 23:58 walnut Allergy Unknown Verified 10/27/24 23:58 Assessment & Plan Assessment & Plan (1) Frontotemporal dementia with behavioral disturbance: Status: Acute Code(s): G31.09 - Other frontotemporal neurocognitive disorder; F02.818 - Dementia in other diseases classified elsewhere, unspecified severity, with other behavioral disturbance (2) Bipolar disorder: Status: Acute Code(s): F31.9 - Bipolar disorder, unspecified (3) Goiter with hyperthyroidism: Status: Acute Code(s): E05.00 - Thyrotoxicosis with diffuse goiter without thyrotoxic crisis or storm Assessment and Plan: TSH-2.32 On tapazole 5mg po daily (4) CHF (congestive heart failure): Status: Acute Code(s): I50.9 - Heart failure, unspecified (5) Asthma: Status: Acute Code(s): J45.909 - Unspecified asthma, uncomplicated Plan Mrs. Duarte is a 59 year-old woman with hx of frontotemporal dementia, Bipolar Disorder who was brought to [facility] ED due to presenting with s/s of catatonia including staring, palilalia, negativism, purposeless behaviors which apparently is similar presentation as last year when she was diagnosed with Frontotemporal dementia. Frontotemporal Dementia does have higher risk of catatonia like symptoms and not uncommon presentation. On the unit, she received ativan 1mg with good effect improving s/s of verbigeration, catatonia. Will obtain records from [facility] and OP providers. Discussed with patient and patient's HCP Eliud, increasing ativan 1mg po TID. Will continue seroquel 50mg po qhs. PLAN 10/29 continue ativan 1mg po TID, currently on seroquel, somewhat expansive mood,visible taking medications. 10/30 continues on and off with verbigeration, along with confusion or disorganized thinking/logic when this happens. will lower ativan 0.5mg po TID- will request records tomorrow from [facility]. 10/31 continue tx. Left VM to her psychiatric provider. 11/01 continue tx. pending records from [facility] 11/02 increase seroquel to 75mg po qhs. 11/03: c/o diarrhea, imodium PRN ordered. otherwise continue current mgmt. modestly interacting. palilalia. 11/04 continue tx. may try increase in ativan for atypical features that may account for catatonia- including palilalia, purposeless behaviors such as standing up going in and out a room without clear purpose. 11/05/2024 Continue plan of care 11/06/2024 Continue plan of care 11/07 continue tx. awaiting records from [facility]. 11/08 d/c trileptal. Start lithium 150mg po BID. Increase namenda 10mg po BID. 11/09 continue tx. 11/10 continue tx. 11/11 continue tx. 11.12: Continue current management and treatment plan. 11/13: continue current management and treatment plan. 11/14 worsening in presentation, will hold on nemanda. Will continue lithium low dose for now. Will start rexulti 0.5mg po daily for mood. 11/15 continue tx. 11/16 switch lithium to trileptal as seems to do better with it. 11/17 continue tx. 11/18 increase rexulti to 1mg po daily 11/19: stable, no behavioral concerns. continue current mgmt. Reason for continued inpatient stay Substantial Risk for: inability to function Time Spent With Patient Time: Total time managing care of this patient today ____ minutes.
[2024-11-19 20:00] VITALS: BP 135/60; PULSE 91; RESP 15; TEMP 36.1; O2SAT 96
[2024-11-19] MEDS: QUEtiapine Fumarate 25 MG TABLET 75 MG PO (20:26)
[2024-11-19] MEDS: Atorvastatin Calcium 20 MG TABLET PO (20:26)
[2024-11-20 08:00] VITALS: BP 121/73; PULSE 99; RESP 18; TEMP 36.2; O2SAT 95
[2024-11-20] MEDS: methIMAzole 5 MG TABLET PO (08:02)
[2024-11-20] MEDS: Apixaban 5 MG TABLET PO ×2 (08:02→20:28)
[2024-11-20] MEDS: OXcarbazepine 300 MG TABLET 600 MG PO ×2 (08:02→20:27)
[2024-11-20] MEDS: Folic Acid 1 MG TABLET 5 MG PO (08:02)
[2024-11-20] MEDS: Brexpiprazole 1 MG TABLET PO (08:02)
[2024-11-20] MEDS: Pyridoxine HCl (Vitamin B6) 50 MG TABLET PO (08:02)
[2024-11-20] MEDS: LORazepam 1 MG TABLET PO ×3 (08:02→20:26)
--- NOTE | 2024-11-20 16:05 | HO.PSYCHPN ---
Subjective Subjective Date of Service: 11/20/24 Reason For Visit: Dementia W/Behavioral Disturbances Interim History: out and about on the unit, planning to leave tomorrow. feeling well, no complaints or questions. per staff, flat, taking meds and meals. excited to DC. Mental Status Exam Mental Status Exam Narrative: Appearance: wearing casual clothing, Behavior: cooperative Psychomotor: no agitation or retardation noted Speech: clear, monotone, spontaneous TP: Mostly linear TC:doing well here Mood: good Affect: somewhat expansive SI: denies HI: denies VH/AH: no overt signs Delusions: no overt delusional content Insight/judgment: impaired x 2. Memory/cog: alert know she is in a hospital Diagnostics Vital Signs (24Hr): Vital Signs - 24 hr 11/19/24 20:00 11/20/24 08:00 Temperature 97 F 97.1 F Pulse Rate 91 99 Respiratory Rate 15 18 Blood Pressure 135/60 121/73 Pulse Oximetry 96 95 Oxygen Delivery Method Room Air Room Air BMI result Body Mass Index 42.4 Labs 11/12/24 15:23 Medications Medications Current Medications Acetaminophen (Acetaminophen 325 Mg Tablet) 650 mg PO Q6H PRN PRN Reason: Headache/Pain, Scale 1-10 Last Admin: 11/16/24 08:36 Dose: 650 mg Al Hydroxide/Mg Hydroxide (Magnesium Hydrox/Alum Hydrox 30 Ml Oral.Susp) 30 ml PO Q6H PRN PRN Reason: Heartburn/Nausea Apixaban (Apixaban 5 Mg Tablet) 5 mg PO BID [facility] Last Admin: 11/20/24 08:02 Dose: 5 mg Atorvastatin Calcium (Atorvastatin Calcium 20 Mg Tablet) 20 mg PO BEDTIME [facility] Last Admin: 11/19/24 20:26 Dose: 20 mg Brexpiprazole (Brexpiprazole 1 Mg Tablet) 1 mg PO DAILY [facility] Last Admin: 11/20/24 08:02 Dose: 1 mg Ergocalciferol (Ergocalciferol (Vitamin D2) 1,250 Mcg Capsule) 1,250 mcg PO Fr@0900 [facility] Last Admin: 11/18/24 09:43 Dose: 1,250 mcg Folic Acid (Folic Acid 1 Mg Tablet) 5 mg PO DAILY [facility] Last Admin: 11/20/24 08:02 Dose: 5 mg Hydroxyzine HCl (Hydroxyzine Hcl 25 Mg Tablet) 25 mg PO Q6H PRN PRN Reason: mild anxiety Last Admin: 11/19/24 23:13 Dose: 25 mg Loperamide HCl (Loperamide Hcl 2 Mg Capsule) 2 mg PO Q4H PRN PRN Reason: diarrhea Lorazepam (Lorazepam 1 Mg Tablet) 1 mg PO TID [facility] Last Admin: 11/20/24 08:02 Dose: 1 mg Magnesium Hydroxide (Milk Of Magnesia 30 Ml Oral.Susp) 30 ml PO DAILY PRN PRN Reason: Constipation Methimazole (Methimazole 5 Mg Tablet) 5 mg PO DAILY [facility] Last Admin: 11/20/24 08:02 Dose: 5 mg Nicotine Polacrilex (Nicotine Polacrilex 2 Mg Gum) 4 mg BUCCAL Q2H PRN PRN Reason: Nicotine Cravings Olanzapine (Olanzapine 2.5 Mg Tablet) 2.5 mg PO TID PRN PRN Reason: agitation Last Admin: 11/17/24 20:23 Dose: 2.5 mg Oxcarbazepine (Oxcarbazepine 300 Mg Tablet) 600 mg PO BID [facility] Last Admin: 11/20/24 08:02 Dose: 600 mg Pyridoxine HCl (Pyridoxine Hcl (Vitamin B6) 50 Mg Tablet) 50 mg PO DAILY [facility] Last Admin: 11/20/24 08:02 Dose: 50 mg Quetiapine Fumarate (Quetiapine Fumarate 25 Mg Tablet) 75 mg PO BEDTIME [facility] Last Admin: 11/19/24 20:26 Dose: 75 mg Senna (Sennosides 8.6 Mg Tablet) 17.2 mg PO BEDTIME PRN PRN Reason: Constipation Trazodone HCl (Trazodone Hcl 50 Mg Tablet) 50 mg PO BEDTIME PRN PRN Reason: Insomnia Last Admin: 11/19/24 23:13 Dose: 50 mg Allergies Allergies Allergy/AdvReac Type Severity Reaction Status Date / Time artichoke Allergy Swelling Verified 10/27/24 23:58 perphenazine [From Trilafon] Allergy Anaphylaxis Verified 10/27/24 23:55 tree nut Allergy Unknown Verified 10/27/24 23:58 walnut Allergy Unknown Verified 10/27/24 23:58 Assessment & Plan Assessment & Plan (1) Frontotemporal dementia with behavioral disturbance: Status: Acute Code(s): G31.09 - Other frontotemporal neurocognitive disorder; F02.818 - Dementia in other diseases classified elsewhere, unspecified severity, with other behavioral disturbance (2) Bipolar disorder: Status: Acute Code(s): F31.9 - Bipolar disorder, unspecified (3) Goiter with hyperthyroidism: Status: Acute Code(s): E05.00 - Thyrotoxicosis with diffuse goiter without thyrotoxic crisis or storm Assessment and Plan: TSH-2.32 On tapazole 5mg po daily (4) CHF (congestive heart failure): Status: Acute Code(s): I50.9 - Heart failure, unspecified (5) Asthma: Status: Acute Code(s): J45.909 - Unspecified asthma, uncomplicated Plan Mrs. Duarte is a 59 year-old woman with hx of frontotemporal dementia, Bipolar Disorder who was brought to [facility] ED due to presenting with s/s of catatonia including staring, palilalia, negativism, purposeless behaviors which apparently is similar presentation as last year when she was diagnosed with Frontotemporal dementia. Frontotemporal Dementia does have higher risk of catatonia like symptoms and not uncommon presentation. On the unit, she received ativan 1mg with good effect improving s/s of verbigeration, catatonia. Will obtain records from [facility] and OP providers. Discussed with patient and patient's HCP Eliud, increasing ativan 1mg po TID. Will continue seroquel 50mg po qhs. PLAN 10/29 continue ativan 1mg po TID, currently on seroquel, somewhat expansive mood,visible taking medications. 10/30 continues on and off with verbigeration, along with confusion or disorganized thinking/logic when this happens. will lower ativan 0.5mg po TID- will request records tomorrow from [facility]. 10/31 continue tx. Left VM to her psychiatric provider. 11/01 continue tx. pending records from [facility] 11/02 increase seroquel to 75mg po qhs. 11/03: c/o diarrhea, imodium PRN ordered. otherwise continue current mgmt. modestly interacting. palilalia. 11/04 continue tx. may try increase in ativan for atypical features that may account for catatonia- including palilalia, purposeless behaviors such as standing up going in and out a room without clear purpose. 11/05/2024 Continue plan of care 11/06/2024 Continue plan of care 11/07 continue tx. awaiting records from [facility]. 11/08 d/c trileptal. Start lithium 150mg po BID. Increase namenda 10mg po BID. 11/09 continue tx. 11/10 continue tx. 11/11 continue tx. 11.12: Continue current management and treatment plan. 11/13: continue current management and treatment plan. 11/14 worsening in presentation, will hold on nemanda. Will continue lithium low dose for now. Will start rexulti 0.5mg po daily for mood. 11/15 continue tx. 11/16 switch lithium to trileptal as seems to do better with it. 11/17 continue tx. 11/18 increase rexulti to 1mg po daily 11/19: stable, no behavioral concerns. continue current mgmt. 11/20: no change from yesterday.. discharging tomorrow. Reason for continued inpatient stay Substantial Risk for: inability to function Time Spent With Patient Time: Total time managing care of this patient today ____ minutes.
[2024-11-20 20:00] VITALS: BP 117/70; PULSE 88; RESP 16; TEMP 36.8; O2SAT 96
[2024-11-20] MEDS: QUEtiapine Fumarate 25 MG TABLET 75 MG PO (20:26)
[2024-11-20] MEDS: OLANZapine 2.5 MG TABLET PO (20:26)
[2024-11-20] MEDS: hydrOXYzine HCL 25 MG TABLET PO (20:27)
[2024-11-20] MEDS: Atorvastatin Calcium 20 MG TABLET PO (20:27)
[2024-11-20] MEDS: traZODone HCL 50 MG TABLET PO ×2 (20:27→23:57)
[2024-11-21] MEDS: hydrOXYzine HCL 25 MG TABLET PO (04:40)
[2024-11-21 08:17] VITALS: BP 125/66; PULSE 105; RESP 16; TEMP 36.3; O2SAT 95
[2024-11-21] MEDS: Folic Acid 1 MG TABLET 5 MG PO (08:24)
[2024-11-21] MEDS: Brexpiprazole 1 MG TABLET PO (08:24)
[2024-11-21] MEDS: Pyridoxine HCl (Vitamin B6) 50 MG TABLET PO (08:24)
[2024-11-21] MEDS: methIMAzole 5 MG TABLET PO (08:24)
[2024-11-21] MEDS: Apixaban 5 MG TABLET PO (08:24)
[2024-11-21] MEDS: OXcarbazepine 300 MG TABLET 600 MG PO (08:25)
[2024-11-21] MEDS: LORazepam 1 MG TABLET PO (08:25)
--- NOTE | 2024-11-21 09:02 | P.DS_ITS ---
DS: Providers Provider Date of Service: 11/21/24 Date of admission: 10/27/24 20:52 Date of discharge: 11/21/24 Primary care physician: Unknown Physician Consults: 10/27/24 18:27 Consult to Hospitalist Routine Comment: Consulting Provider: [facility] Hospitalists Reason For Exam: admission physical Discharging clinician: Nicole Salinas DS: Diagnosis Discharge Diagnosis (1) Frontotemporal dementia with behavioral disturbance: Status: Acute (2) Bipolar disorder: Status: Acute (3) Goiter with hyperthyroidism: Status: Acute (4) CHF (congestive heart failure): Status: Acute (5) Asthma: Status: Acute DS: Medications Discharge Medications Home Medications: Home Medications ?Medication ?Instructions ?Recorded ?Confirmed apixaban 5 mg tablet (Eliquis) 5 mg PO BID 10/28/24 10/28/24 atorvastatin 20 mg tablet 20 mg PO BEDTIME 10/28/24 10/28/24 ergocalciferol (vitamin D2) 1,250 1,250 mcg PO QWEEK 10/28/24 10/28/24 mcg (50,000 unit) capsule folic acid 1 mg tablet 5 mg PO DAILY 10/28/24 10/28/24 lorazepam 0.5 mg tablet 0.5 mg PO BID 10/28/24 10/28/24 memantine 5 mg tablet 5 mg PO BID 10/28/24 10/28/24 methimazole 5 mg tablet 5 mg PO DAILY 10/28/24 10/28/24 oxcarbazepine 600 mg tablet 600 mg PO BID 10/28/24 10/28/24 pyridoxine (vitamin B6) 50 mg 50 mg PO DAILY 10/28/24 10/28/24 tablet quetiapine 25 mg tablet 25 mg PO BID 10/28/24 10/28/24 quetiapine 25 mg tablet 75 mg PO BEDTIME 10/28/24 10/28/24 sennosides 8.6 mg tablet (senna) 17.2 mg PO BEDTIME PRN Constipation 10/28/24 10/28/24 Mental Status Exam Mental Status Exam Narrative: Appearance: wearing casual clothing, Behavior: cooperative Psychomotor: no agitation or retardation noted Speech: clear, monotone, spontaneous with palilalia TP: poverty of thought, mostly linear TC:doing well here Mood: good Affect: somewhat expansive SI: denies HI: denies VH/AH: no overt signs Delusions: no overt delusional content Insight/judgment: impaired x 2. Memory/cog: alert oriented x 3, vague about situation. Data Data Completed and Pending Completed studies during hospitalization [Text1]: 11/15/24 07:37 TSH 3.54 Sultan 0.26 L DS: Summary Hospital Course Hospital Course: Subjective Notes: Colon Warning and Section 12B Narrative: Mrs. Duarte is a 59 year-old woman with hx of Bipolar Disorder, fronto- temporal dementia which was diagnosed back in 12/2023 at [facility] who was brought to [facility] ED as described pt sitting in chair, not talking, repeating words, purposeless behaviors such as walking to room staring and back and when asked about what she was doing would not respond. Pertinent labs completed in ED on 10/26/2024 include cmp without electrolyte abnormality, BUN 21, Cr 0.76, AST 16, ALT 31. UA on 10/26/2024 not suggestive of UTI, negative leukocyte, negative for nitrites. CBC without leukocytosis/ leukopenia, no anemia. On the unit, pt presents with verbigeration, repeating last word of sentence she says several times. Her responses to simple questions questions are seemingly appropriate on surface in the sense that when you ask her if she is having pain she may say yes, yes, yes yes yes but when asked to elaborate then says no no no no no. She is able to tell that she is in the hospital. She reports she is not sure why she is here. She denies having a psychiatric providers, but Eliud reports she sees a psychiatrist. She also is not able to tell if she sees a neurologist or not. She denies suicidal or homicidal ideation. When asked about repetition of words, she does state that this started 3 weeks ago (which is consistent with what Eliud reports), when asked if it bothers her she says yes, yes, yes, yes, no, no, no, no. when asked if she has noticed other changes for the past 3 weeks she denies and reports she is okay. When asked if she is able to suppress repeating words several times, she says yes, yes, yes, yes, yes. Then this sign writer hand asked her to repeat a sentence without repeating any words several times. Sentence was I have a dog, pt kept repeating dog, dog, dog, dog. On exam, no waxy flexibility noted on exam. Per , Eliud- he reports they have been together only for 3 years. He reports that he suspected something was not right with her about one year ago or so. He reports he noticed behavioral changes in that patient began to present as more withdrawn, not talking as much, not talking, responses to questions related to what was going on had no much logic. He reports she initially was mistaken as depressed but finally when she was admitted to [facility] she was given dx of frontotemporal dx last year. He reports she was doing very well, able to cook at home, complete some chores, go out with him, but in the past 3 weeks, she started to again stare at the wall, purposeless behaviors of going to a room, coming back out, not taking care of hygiene but not expressing depressed mood or sadness. He stated she also started to refuse her medications, which he reports she is very consistent with them. He denies hx of violence or self harm behaviors as he is aware. His understanding is that this presentation it is not the common presentation she had earlier in her life due to Bipolar Disorder. Past Psychiatric History: Inpt: [facility] 12/2023 apparently presented as catatonic and dx with frontotemporal Dementia. HOSPITAL COURSE On the unit, pt was admitted on a CV and placed on 15 minutes checks for safety. She presented with palilalia, some purposeless behaviors, coming in and out of the room. She denied SI/HI. No overt psychosis or delusions. We discussed risks, benefits and alternative treatment options. She was continued on trileptal 600mg po BID. She was also continued on on ativan which it was increased to 0.5mg po TID. Initially, some of the palilalia did stop when she was given a one time dose of ativan 1mg po, but later palilalia returned. Her thought process was with poverty of though. No much substance in her conversations were noted other than she would typically report she was doing well. She denied any psychiatric concerns including depressed or anxious mood. She was also continued on namenda. She was sleeping through the night. She was eating well with some tendency to eat compulsively, which was thought to be related to frontotemporal dementia. She was switched from seroquel to rexulti to target mood, which she tolerated well. Her affect was slightly brighter, but with underlying constricted range. She denied SI/HI. There were no incidences of disruptive behaviors nor need for restraints. She was visible on the unit, increasingly more social with peers. She attended some groups, participation was minimal. palilalia continued. Status at Discharge Cognitive/behavioral status at discharge: Pt with slightly brighter, no overt psychosis or delusions. Sleeping well. Sleeping and eating well. No behavioral concerns. No SI/HI. Functional status at discharge: independent ambulation Overall status at discharge: patient is back to baseline Time Spent with Patient Time attestation: Total time managing care of this patient today __40__ minutes. Time spent: Greater than 30 minutes Discharge Plan Discharge Anticipated Discharge Date/Time: 11/21/24 09:02 Patient Disposition: Home, Self-Care Discharge Diagnosis: Frontotemporal Dementia, Bipolar 1 Disorder Referrals: Karlene Demarco [employer] (Medication Management) [Other] - 12/01/24 11:30 am (You will see Karlene on 12/01/24 at 11:30 AM in person. If you have any questions or need to reschedule the appointment please call the number listed.) [facility] [Other] - 3-5 Days ([facility] [place] will call you the day of discharge to not only confirm it but schedule and evaluation as well. If you have any questions or concerns please call the number listed.) Bennie Delarosa MD [Other] - 11/28/24 12:45 pm (You will see on 11/28/24 at 12:45pm. If you have any questions or concerns please call the number listed.) [facility] [Other] - 3-5 Days (The [facility] [employer] [facility] cost 80 dollars a day. They do provide transportation to and from the day program. Please call the number listed for more information and the Shirrer: Vielka Medrano for more information.) Discharge Medications: New Eliquis 5 mg Tablet 5 mg PO BID Qty: 60 0RF atorvastatin 20 mg Tablet 20 mg PO BEDTIME Qty: 30 0RF lorazepam 0.5 mg tablet 0.5 mg PO TID Qty: 90 0RF oxcarbazepine 600 mg tablet 600 mg PO BID Qty: 60 0RF sennosides [Senna Lax] 8.6 mg Tablet 17.2 mg PO BEDTIME PRN (Reason: Constipation) Qty: 30 0RF trazodone 50 mg Tablet 50 mg PO BEDTIME PRN (Reason: Insomnia) Qty: 30 0RF methimazole 5 mg Tablet 5 mg PO DAILY Qty: 30 0RF pyridoxine (vitamin B6) 50 mg Tablet 50 mg PO DAILY Qty: 30 0RF folic acid 1 mg Tablet 5 mg PO DAILY Qty: 30 0RF ergocalciferol (vitamin D2) [Vitamin D2] 1,250 mcg (50,000 unit) Capsule 1,250 mcg PO Fr@0900 Qty: 30 0RF Rexulti 1 mg tablet 1 mg PO DAILY Qty: 14 0RF Discontinued quetiapine 25 mg tablet 25 mg PO BID oxcarbazepine 600 mg tablet 600 mg PO BID ergocalciferol (vitamin D2) 1,250 mcg (50,000 unit) capsule 1,250 mcg PO QWEEK Eliquis 5 mg tablet 5 mg PO BID atorvastatin 20 mg tablet 20 mg PO BEDTIME folic acid 1 mg tablet 5 mg PO DAILY memantine 5 mg tablet 5 mg PO BID methimazole 5 mg tablet 5 mg PO DAILY lorazepam 0.5 mg tablet 0.5 mg PO BID pyridoxine (vitamin B6) 50 mg Tablet 50 mg PO DAILY quetiapine 25 mg tablet 75 mg PO BEDTIME sennosides [senna] 8.6 mg Tablet 17.2 mg PO BEDTIME PRN (Reason: Constipation) Discharge Orders: Discharge Order (Routine); Ordered 11/21/24 Ordered By: Nicole Salinas Diet: Regular diet Activity on Discharge: As tolerated Stand Alone Forms: Patient Portal Discharge page, Community Support Print Language: Romanian Care Plan Goals: 1. Maintain mood 2. No SI/HI 3. no aggression towards self or others Health Concerns: Follow up with PCP Plan of Treatment: 1. Take medications as prescribed 2. Go to nearest ED or call 911 in event of emergency Assessment: Pt with slightly brighter, no overt psychosis or delusions. Sleeping well. Sleeping and eating well. No behavioral concerns. No SI/HI. Discharge Date/Time: 11/21/24 13:11
== END 2024-11-21 13:11 | disposition home or self-care (01) | DRG 57 ==
PROVIDERS: Psychiatry & Neurology Psychiatry; Social Worker; Admitting Provider Psychiatry & Neurology Psychiatry; Visit Provider Psychiatry & Neurology Psychiatry
DX: G31.09 Other frontotemporal neurocognitive disorder (principal); F31.9 Bipolar disorder, unspecified; F02.80 Dementia in other diseases classified elsewhere, unspecified severity, without behavioral disturbance, psychotic disturbance, mood disturbance, and anxiety; J45.20 Mild intermittent asthma, uncomplicated; I50.9 Heart failure, unspecified; E05.00 Thyrotoxicosis with diffuse goiter without thyrotoxic crisis or storm; E78.5 Hyperlipidemia, unspecified; Z86.711 Personal history of pulmonary embolism; Z79.01 Long term (current) use of anticoagulants; Z79.899 Other long term (current) drug therapy
CPT/HCPCS: 36415; 80053; 80061; 80178; 83036; 84443

== ENCOUNTER → 2024-10-27 20:52 | Outpatient (BNV) | payer OTHER, SELFPAY | PROVIDERS: Admitting Provider Psychiatry & Neurology Psychiatry; Visit Provider Psychiatry & Neurology Psychiatry | DX: F31.9 Bipolar disorder, unspecified (principal); G31.09 Other frontotemporal neurocognitive disorder; F02.818 Dementia in other diseases classified elsewhere, unspecified severity, with other behavioral disturbance; E05.00 Thyrotoxicosis with diffuse goiter without thyrotoxic crisis or storm; I50.9 Heart failure, unspecified; J45.909 Unspecified asthma, uncomplicated | CPT/HCPCS: 99231 ==

== ENCOUNTER → 2024-10-27 20:52 | Outpatient (BNV) | payer OTHER, SELFPAY | PROVIDERS: Admitting Provider Psychiatry & Neurology Psychiatry; Visit Provider Student in an Organized Health Care Education/Training Program | DX: E78.5 Hyperlipidemia, unspecified (principal); J45.20 Mild intermittent asthma, uncomplicated; R41.82 Altered mental status, unspecified | CPT/HCPCS: 99222 ==

== ENCOUNTER → 2024-10-27 20:52 | Outpatient (BNV) | payer OTHER, SELFPAY | PROVIDERS: Admitting Provider Psychiatry & Neurology Psychiatry; Visit Provider Social Worker | DX: G31.09 Other frontotemporal neurocognitive disorder (principal); F02.818 Dementia in other diseases classified elsewhere, unspecified severity, with other behavioral disturbance; F31.9 Bipolar disorder, unspecified; E05.00 Thyrotoxicosis with diffuse goiter without thyrotoxic crisis or storm; I50.9 Heart failure, unspecified; J45.909 Unspecified asthma, uncomplicated | CPT/HCPCS: 90792; 99231; 99232 ==